=== PATIENT | female | born 1965 | race Caucasian/White ===

== ENCOUNTER → 2018-05-08 10:26 | Outpatient (CLI) | payer MEDICAID, SELFPAY ==
--- NOTE | 2018-05-08 10:28 | STEWCON_ITS ---
Version 2 Reason For Study: CAD/ASHD Stress Results Protocol: Oswald Protocol Maximum Predicted HR: 166 bpm Target HR: 141 bpm% Max imum Predicted HR: 90 % DurationHeart Rate Stage (mm:ss) (bpm) BPCom ment BASELINE 74 138/84 3 CC DEFINITY STAGE 1 3:00 12 3 152/90 STAGE 2 3:00 14 2 170/801CC DEFINITY STAGE 3 0:30 15 0 / RECOVERY 102 140/8 81 CC DEFINITY Stress Duration: 6:30 mm:ss Maximum Stress HR: 150 bpm Baseline Echocardiogram Findings Stress Echo Wall motion Data Resting WMIntermediate WMStress WM Resting Wall Motion Wall Motion Stress No regional wall motion No regional wall motion abnormalities noted. abnormalities noted. Ejection Fraction 55 %. Ejection Fraction 65 %. Stress Results Normal blood pressure response to exercise. Exercise was stopped due to achievement of target heart rate. Interpretation Summary Normal resting LV systolic function. Nonstenotic valves. With stress, the LV size decreased and all segments augmented normally. The LVEF increased from 55% to 65%. Negative for ischemia at 90% of MPHR and at 8.5 METS. Normal stress echo at a moderate workload. Ordering Physician: Jabari Brody Referring Physician: Jabari Brody Performed By: Leighton Bowser RCS
== END ==
PROVIDERS: PCP Internal Medicine; Visit Provider Nurse Practitioner Family
DX: I25.118 Atherosclerotic heart disease of native coronary artery with other forms of angina pectoris (principal)
CPT/HCPCS: 93017; 93350; Q9957; A4216; C8928

== ENCOUNTER → 2022-09-07 | Outpatient (CLI) | payer MEDICAID, SELFPAY ==
[2022-09-07 11:42] LABS: AST(SGOT) 11 U/L (15-37); Alanine Aminotransfer ALT/SGPT 24 U/L (13-56); Albumin, Serum 3.3 g/dL (3.2-5.0); Alkaline Phosphatase 66 U/L (45-117); Bilirubin, Direct 0.14 mg/dL (0.00-0.30); Cholesterol 159 mg/dL (200); Globulin 3.5 g/dL (2.2-4.2); High Density Lipoprotein 60 mg/dL; Protein, Total 6.8 g/dL (6.4-8.2); Triglycerides 93 mg/dL; Very Low Density Lipoprotein 19 mg/dL (5-40)
== END | disposition home or self-care (01) ==
LOC: LAB 10:42
PROVIDERS: Visit Provider Internal Medicine Cardiovascular Disease
DX: E78.00 Pure hypercholesterolemia, unspecified (principal); I10 Essential (primary) hypertension
CPT/HCPCS: 36415; 80061; 80076

== ENCOUNTER → 2022-09-27 | Outpatient (CLI) | payer MEDICAID, SELFPAY ==
--- NOTE | 2022-09-27 19:14 | STRESSREP ---
Stress Test Report Exercise myocardial perfusion stress test. 57-year-old lady with a history of chest pain. Stress protocol: Resting EKG demonstrates sinus bradycardia with a rate of 56 bpm resting blood pressure is 118/80 mmHg. The patient exercised according to the regular Oswald protocol for a total duration of 5 minutes and 46 seconds attaining a maximum heart rate of 127 bpm which was 78% of maximum predicted heart rate; the maximum workload was 7 metabolic equivalents. At rest there were no ST or T wave changes noted to suggest ischemia and at peak exercise upsloping ST changes only were noted which did not meet the criteria for ischemia. No clinical angina was noted the test was terminated due to the target heart rate being achieved/fatigue. The peak blood pressure was 158/70 mmHg. Rate-pressure product was 18,900. Myocardial perfusion protocol. 11.0 mCi of technetium 99m sestamibi was injected at rest. The patient exercised according to regular Oswald protocol for total duration of 5 minutes and 46 seconds and at peak exercise 32.8 mCi of technetium 99m sestamibi was injected stress images were obtained stress and rest images were reconstructed in comparing the short axis vertical long and horizontal long axis. Gated images were also obtained. Perfusion SPECT analysis: Review of the stress images demonstrate normal uptake of tracer noted in all areas of the myocardium. The resting images similarly demonstrate normal uptake of tracer noted in all areas of the myocardium. No areas of reversibility are noted to suggest ischemia no previous infarct was noted. Gated SPECT analysis: The gated ejection fraction is 82%. Conclusion: Normal exercise myocardial perfusion stress test at a moderate workload Preserved ejection fraction.
== END | disposition home or self-care (01) ==
LOC: CVS 06:09
PROVIDERS: Referring Provider Internal Medicine Cardiovascular Disease; Visit Provider Internal Medicine Cardiovascular Disease
DX: R00.1 Bradycardia, unspecified (principal); R53.83 Other fatigue; I10 Essential (primary) hypertension; Z95.5 Presence of coronary angioplasty implant and graft; R07.89 Other chest pain
CPT/HCPCS: 78452; 93017; A9500; A4216

== ENCOUNTER → 2023-02-17 | Outpatient (CLI) | payer MEDICAID, SELFPAY ==
--- NOTE | 2023-02-17 09:16 | US_ITS ---
EXAM: Diagnostic bilateral breast mammogram and diagnostic bilateral breast ultrasound REASON FOR EXAM: Female, 57 years old. Bilateral palpable lumps/tenderness for one week''s duration. PERTINENT HISTORY: Non-contributory. TECHNIQUE: Digital bilateral breast ha (3D mammographic acquisition) in the CC and MLO projections. 2-D mediolateral oblique (MLO) and craniocaudad (CC) views of both breasts were obtained. CAD: Full Field Digital Mammography with Computer Added Detection was performed. Real-time fairchild scale and color sonographic images were obtained in the clinical areas of concern within the right upper outer quadrant and right axilla and the left upper inner quadrant. COMPARISON: Mammogram from 04/05/2018, 02/25/2015. FINDINGS: Mammogram findings: Breast Composition: Portions of the breasts are heterogeneously dense, which may obscure small masses. There are no dominant masses or suspicious calcifications. No other significant abnormalities are identified. Ultrasound was obtained of the bilateral breasts for palpable findings. Ultrasound findings: The right upper outer breast and the right axilla in the clinical area of palpable findings was assessed with ultrasound. No suspicious masses or abnormal fluid collections. The left upper inner breast in the clinical area of palpable findings was assessed with ultrasound. No suspicious masses or abnormal fluid collections. IMPRESSION: Negative diagnostic mammogram. No suspicious masses or abnormal fluid collections on ultrasound in the clinical areas of concern. ASSESSMENT CATEGORY: BIRADS Category 1: Negative. A letter regarding these results will be sent to the patient by the facility within 30 days. Recommendation: Return to annual screening mammogram. If clinical concerns for enlarging mass or nipple discharge on physical exam, repeat diagnostic ultrasound and mammogram is recommended. Approximately 10% of breast cancers are not detected by mammography. A normal mammogram should not delay biopsy of a clinically suspicious abnormality. Electronically Signed: Atul Alejandro DO at 10:18 EDT , EXAM: Diagnostic bilateral breast mammogram and diagnostic bilateral breast ultrasound REASON FOR EXAM: Female, 57 years old. Bilateral palpable lumps/tenderness for one week''s duration. PERTINENT HISTORY: Non-contributory. TECHNIQUE: Digital bilateral breast ha (3D mammographic acquisition) in the CC and MLO projections. 2-D mediolateral oblique (MLO) and craniocaudad (CC) views of both breasts were obtained. CAD: Full Field Digital Mammography with Computer Added Detection was performed. Real-time fairchild scale and color sonographic images were obtained in the clinical areas of concern within the right upper outer quadrant and right axilla and the left upper inner quadrant. COMPARISON: Mammogram from 04/05/2018, 02/25/2015. FINDINGS: Mammogram findings: Breast Composition: Portions of the breasts are heterogeneously dense, which may obscure small masses. There are no dominant masses or suspicious calcifications. No other significant abnormalities are identified. Ultrasound was obtained of the bilateral breasts for palpable findings. Ultrasound findings: The right upper outer breast and the right axilla in the clinical area of palpable findings was assessed with ultrasound. No suspicious masses or abnormal fluid collections. The left upper inner breast in the clinical area of palpable findings was assessed with ultrasound. No suspicious masses or abnormal fluid collections. US/Breast Limited Unilateral
== END | disposition home or self-care (01) ==
LOC: OPBI 09:14
PROVIDERS: PCP Family Medicine; Referring Provider Family Medicine; Visit Provider Family Medicine
DX: N63.10 Unspecified lump in the right breast, unspecified quadrant (principal); N63.20 Unspecified lump in the left breast, unspecified quadrant
CPT/HCPCS: 77062; 76642; 77066; G0279

== ENCOUNTER → 2023-06-07 | Outpatient (CLI) | payer MEDICAID, SELFPAY ==
[2023-06-07 11:13] LABS: Absolute Lymphocyte Count 2.48 X10^3/uL (0.83-4.51); Absolute Neutrophil Count 5.8 X10^3/uL (2.0-7.7); Basophil# 0.07 X10^3/uL; Basophil% 0.7 % (0-1); Eosinophil# 0.32 X10^3/uL; Eosinophils% 3.2 % (0-5); Hemoglobin 12.9 g/dL (12.0-15.0); Lymphocyte # 2.48 X10^3/ul (0.83-4.51); Lymphocyte % 25.1 % (19-41); Mean Corp Hgb Conc 33.1 g/dL (32-36); Mean Corpuscular Hgb 32.1 pg (27.0-32.0); Mean Platelet Vol. 8.7 fl (6.2-12.0); Monocyte# 1.18 X10^3/uL; Monocyte% 11.9 % (0-10); NRBC Flagged by Analyzer 0 % (0-5); Neutrophil # 5.77 X10^3/uL (2.7-7.7); Neutrophil % 58.3 % (47-70); Platelet Count 258 K/mm3 (150-450); RBC Distribution Width CV 13.2 % (11.6-14.6); Red Blood Count 4.02 M/mm3 (4.2-5.4); White Blood Count 9.9 K/mm3 (4.4-11.0)
[2023-06-07 11:36] LABS: Internal QC Validated? YES +Cl - CLEAR BKGD; Pregnancy, Serum, hCG Quali. NEGATIVE Negative
[2023-06-07 11:38] LABS: Anion Gap 5 (5-15); BUN 19 mg/dL (7-18); BUN/Creat Ratio 20.6 RATIO (10-20); Calcium,Total 9.1 mg/dL (8.5-10.1); Chloride 108 mmol/L (98-107); Creatinine, Serum 0.92 mg/dL (0.55-1.02); EST Glomerular Filtration Rate 66 mL/min (>60); Est Glom Filt Rate - Afr Amer 80 mL/min (>60); Glucose 104 mg/dL (74-106); Sodium Level 140 mmol/L (136-145)
== END | disposition home or self-care (01) ==
LOC: LAB 11:00
PROVIDERS: PCP Family Medicine; Referring Provider Nurse Practitioner Gerontology; Visit Provider Nurse Practitioner Gerontology
DX: R07.89 Other chest pain (principal); Z95.5 Presence of coronary angioplasty implant and graft
CPT/HCPCS: 36415; 80048; 84703; 85025

== ENCOUNTER 2023-06-22 10:11 | Observation (INO) | payer MEDICAID, SELFPAY ==
[2023-06-21 08:48] VITALS: BMI 33.8
[2023-06-22] VITALS (10 sets, daily range): BP systolic 139–168; BP diastolic 70–97; PULSE 67–89; RESP 16–19; TEMP 36.7; O2SAT 96–100; BMI 34.7
--- NOTE | 2023-06-22 08:29 | CL.D_ITS ---
Patient Name: KOLBY LAMBERT Study Date: 06/22/2023 Performing: Norberto Werner MD Ht: 63 inches 160.02 cm : 1965 Wt: 191.01 lbs 86.64 kg Age: 57 Gender: female BSA: 1.9 PROCEDURE(S) PERFORMED DC01-([id number])LHC/COR/LV CLINICAL PROFILE AND INDICATIONS Indications: Worsening Angina Heart Failure: None Stress/Imaging Date: 09/27/22 CAD Presentations: Unstable angina. CONCLUSIONS Severe disease involving the left circumflex artery system and moderately severe disease involving the LAD. With preserved ejection fraction. RECOMMENDATIONS We will consider PCI of the left circumflex artery. And consider IFR of the LAD. DESCRIPTION OF PROCEDURE The patient arrived to the procedure lab. The risks and benefits of the procedure as well as a full description of our services here and current unavailability of surgical backup were fully explained to the patient and/or their significant other prior to the catheterization. The Timeout was completed, verifying the correct patient and procedure. The patient's procedural site was prepped and draped in the usual fashion. Local anesthetic was given subcutaneously to right radial region with Lidocaine 2%. Using a modified Seldinger technique, arterial access was obtained via the right radial artery, a 6Fr sheath was inserted. Left Coronary Artery selective angiography was performed in multiple views using a 5 Fr. 4.0 Fishtail catheter. Right Coronary Artery selective angiography was then performed in multiple views using a 5 Fr. 4.0 Fishtail catheter. Left Ventriculography was performed in HASSAN projection using a 5 Fr. Pigtail catheter. LV to AO pullback pressures were then recorded. CORONARY ANGIOGRAPHY DOMINANCE: Right Dominant LEFT HEART ASSESSMENT Left Ventricular Ejection Fraction: by LV Gram 65 % Normal LV wall motion Normal Left Ventricular systolic function LEFT MAIN: Mild calcification, Mild luminal irregularities LEFT ANTERIOR DESCENDING ARTERY: Medium size vessel with significant proximal calcification and eccentric 60 to 70% proximal stenosis with first diagonal with 80% ostial stenosis and mild diffuse distal disease. CIRCUMFLEX ARTERY: Nondominant vessel with high-grade 90% mid segment stenosis and 2 obtuse marginal branches with ostial 60 to 70% stenosis and mild distal disease noted in the AV groove branch. RIGHT CORONARY ARTERY: Moderate luminal irregularities up to 50% COMPLICATIONS PROCEDURE MEDICATIONS Versed 1 mg IV Fentanyl 50 mcg IV Versed 1 mg IV Versed 1 mg IV Oxygen: 2 L/min via nasal cannula Heparin given IA 06/22/2023 07:58:18 Verapamil 2.5mg, Ntg 100mcgs, 3000 units of Heparin given IA 06/22/2023 07:58:18 SUMMARY OF HEMODYNAMIC DATA Time AIR REST ECG 07:18:28 Art 147/67 (93) 07:53:56 AO 93/55 (71) SA 08:00:19 LV 90/5, 18 08:09:44 LV 92/10, 16 08:09:53 LV 98/11, 21 08:10:34 LV 96/7, 16 08:10:43 LVp 98/11, 20 08:10:53 AOp 119/67 (89) 08:11:00 Signed By Norberto Werner MD On 06/22/2023 08:28:49 Norberto Werner MD
--- NOTE | 2023-06-22 10:38 | CL.I_ITS ---
Patient Name: KOLBY LAMBERT Study Date: 06/22/2023 Performing: Asetr Nino MD Ht: 63 inches 160.02 cm : 1965 Wt: 191.01 lbs 86.64 kg Age: 57 Gender: female BSA: 1.9 PROCEDURE(S) PERFORMED IC10-(07156)FFR, CORONARY OR GRAFT, INITIAL VESSEL IC12-([id number])JOANN W/WO PTCA, SINGLE CORONARY ARTERY IC13-([id number])JOANN W/WO PTCA, EACH ADD'L ART, SAME MAJOR CLINICAL PROFILE AND CO-MORBIDITIES Indications: Worsening Angina Heart Failure: None Stress/Imaging Date: 09/27/22 CAD Presentations: Unstable angina. CONCLUSIONS iFR Prox LAD 0.92 optimized proximally using 3.25 mm balloon Successful PTCA/JOANN ostial/Prox OM1 (flow limiting linear dissection resulting from stent to LCX) using Yajaira x [place] 2.5x12 mm OM2 ostium dilated using 2.0 mm balloon RECOMMENDATIONS ASA Sj Augustine for at least 12 months DESCRIPTION OF PROCEDURE The patient arrived to the procedure lab. The risks and benefits of the procedure as well as a full description of our services here and current unavailability of surgical backup were fully explained to the patient and/or their significant other prior to the catheterization. The Timeout was completed, verifying the correct patient and procedure. The patient's procedural site was prepped and draped in the usual fashion. Local anesthetic was given subcutaneously to right radial region with Lidocaine 2% Using a modified Seldinger technique,arterial access was obtained via the right radial artery, a 6Fr sheath was inserted. Left Coronary Artery selective angiography was performed in multiple views using a 5 Fr. 4.0 [place] catheter. Right Coronary Artery selective angiography was then performed in multiple views using a 5 Fr. 4.0 [place] catheter. Left Ventriculography was performed in HASSAN projection using a 5 Fr. Pigtail catheter. LV to AO pullback pressures were then recorded.The images were reviewed and options discussed. A decision was then made to proceed with an Intervention, IVUS or other adjunct procedure. XB 3.0 Guide catheter was inserted and engaged into the LCA. The FFR/iFR wire was inserted. The FFR/iFR wire was then removed. Runthrough Guide wire was advanced to the Circumflex. The FFR/iFR wire was inserted. iFR measurements were performed. iFR Ratio: 0.92 iFR Ratio: 0.92 The FFR/iFR wire was then removed. Emerge 2.50x12 Balloon catheter was inserted. PTCA balloon inflated at 10 atms for 17 secs. Angiogram performed post balloon dilatation. [place] 3.0x30 Drug Eluting stent was inserted. Drug Eluting stent was removed intact, failed to cross lesion Runthrough Guide wire was inserted as a naty wire Emerge 2.50x12 Balloon catheter was inserted. PTCA balloon inflated at 6 atms for 32 secs. PTCA balloon inflated at 6 atms for 10 secs. Angiogram performed post balloon dilatation. [place] 3.0x30 Drug Eluting stent was inserted. Angiogram performed post stent deployment. Emerge 2.00x8 Balloon catheter was inserted. PTCA balloon inflated at 8 atms for 10 secs. Angiogram performed post balloon dilatation. Emerge 2.25x8 Balloon catheter was inserted. PTCA balloon inflated at 6 atms for 8 secs. PTCA balloon inflated at 6 atms for 5 secs. PTCA balloon inflated at 6 atms for 7 secs. PTCA balloon inflated at 6 atms for 8 secs. PTCA balloon inflated at 6 atms for 5 secs. PTCA balloon inflated at 6 atms for 5 secs. Angiogram performed post balloon dilatation. Emerge 2.50x12 Balloon catheter was inserted. PTCA balloon inflated at 6 atms for 6 secs. PTCA balloon inflated at 6 atms for 28 secs. PTCA balloon inflated at 6 atms for 36 secs. Angiogram performed post balloon dilatation. [place] Emerge 3.00x15 Balloon catheter was inserted. Angiogram performed post balloon dilatation. [place] 2.5x12 Drug Eluting stent was inserted. Angiogram performed post balloon dilatation. NC Emerge 3.00x15 Balloon catheter was inserted. Angiogram performed post balloon dilatation. NC Emerge 3.25x12 Balloon catheter was inserted. Angiogram performed post balloon dilatation. The arterial sheath was pulled and a TR Band was applied for hemostasis w/ 15ml air INTERVENTION INFORMATION LESION SITE: LAD (Proximal) lesion at bifurcation: Yes, lesion length: 28 mm PROCEDURE: iFR Lesion Devices: Cordis 6 Fr XB3.0 100cm Guide Catheter [place] (volcano) Coronary FFR Wire LESION SITE: Circumflex (Proximal) Lesion Complexity: High/C Pre Stenosis: 95 % Pre intervention HUNTER flow: 3 PROCEDURE: Drug Eluting Stent with pre and post dilatation Post Stenosis: 0 % Post intervention HUNTER flow: 3 Lesion Devices: Terumo .014 180cm Runthrough Extra Floppy straight Cordis 6 Fr XB3.0 100cm Guide Catheter Rj Sci EMERGE MR 2.50x12 BALLOON Medtronic 3.0 x 30 BRIANA FRONTIER JOANN Rj Sci EMERGE MR 2.00x08 BALLOON Rj Sci EMERGE MR 2.25x08 BALLOON Rj Sci EMERGE MR 2.50x12 BALLOON Rj Sci NC EMERGE MR 3.00x15 BALLOON Rj Sci NC EMERGE MR 3.25x12 BALLOON LESION SITE: 1st OM (Proximal) Lesion Complexity: High/C, lesion length: 10 mm Pre Stenosis: 99 % Pre intervention HUNTER flow: 1 PROCEDURE: Drug Eluting Stent with pre and post dilatation 10 % Post intervention HUNTER flow: 3 Lesion Devices: Medtronic 2.50 x 12 BRIANA FRONTIER JOANN COMPLICATIONS No Complications PROCEDURE MEDICATIONS Versed 1 mg IV Fentanyl 50 mcg IV Versed 1 mg IV Versed 1 mg IV Fentanyl 50 mcg IV Versed 1 mg IV Fentanyl 50 mcg IV Oxygen: 2 L/min via nasal cannula Brilinta 180 mg PO @ 06/22/2023 08:30:03 Heparin given IA 06/22/2023 07:58:18 Heparin 5000 unit(s) IV 06/22/2023 08:39:01 Heparin 3000 unit(s) IV 06/22/2023 08:48:27 Nitro 200 mcg IC 06/22/2023 09:24:39 Nitro 200 mcg IC 06/22/2023 09:24:39 Nitro 200 mcg IC 06/22/2023 09:32:36 Nitro 200 mcg IC 06/22/2023 09:40:26 Verapamil 2.5mg, Ntg 100mcgs, 3000 units of Heparin given IA 06/22/2023 07:58:18 IV Bolus: .9 NaCl 750 ml total 06/22/2023 10:08:30 SUMMARY OF HEMODYNAMIC DATA Time AIR REST ECG 07:18:28 Art 147/67 (93) 07:53:56 AO 93/55 (71) SA 08:00:19 LV 90/5, 18 08:09:44 LV 92/10, 16 08:09:53 LV 98/11, 21 08:10:34 LV 96/7, 16 08:10:43 LVp 98/11, 20 08:10:53 AOp 119/67 (89) 08:11:00 AO 191/108 (145) 10:00:10 AIR REST 10:36:14 Signed By Aster Nino MD On 06/22/2023 10:37:34 Aster Nino MD
[2023-06-22] MEDS: Acetaminophen 500 MG Tablet PO ×3 (12:23→21:11)
[2023-06-22] MEDS: 0.9% Normal Saline (1000mL) 1,000 ML 150 ML IV (12:32)
[2023-06-22 13:58] LABS: ACT Activated Clotting Time 239 sec (74-137)
[2023-06-22 14:07] LABS: ACT Activated Clotting Time 263 sec (74-137)
[2023-06-22] MEDS: Pravastatin 40 MG Tablet PO (21:10)
[2023-06-22] MEDS: dilTIAZem CD 240 MG Capsule PO (21:10)
[2023-06-22] MEDS: TICAGRELOR 90 MG TABLET PO (21:10)
[2023-06-23 03:10] VITALS: BP 104/57; BP 128/77; PULSE 70; PULSE 75; RESP 16; RESP 18; TEMP 36.6; TEMP 36.7; O2SAT 93; O2SAT 99
[2023-06-23] MEDS: Acetaminophen 500 MG Tablet PO (05:10)
[2023-06-23 07:43] VITALS: O2SAT 93
[2023-06-23 08:02] LABS: Hematocrit 34.6 % (37-47); Hemoglobin 11.6 g/dL (12.0-15.0); Mean Corp Hgb Conc 33.5 g/dL (32-36); Mean Corpuscular Hgb 31.7 pg (27.0-32.0); Mean Corpuscular Volume 94.5 fL (81-99); Mean Platelet Vol. 9.6 fl (6.2-12.0); Platelet Count 205 K/mm3 (150-450); RBC Distribution Width CV 12.9 % (11.6-14.6); RBC Distribution Width SD 44.6 fl (35.1-43.9); Red Blood Count 3.66 M/mm3 (4.2-5.4); White Blood Count 9.1 K/mm3 (4.4-11.0)
[2023-06-23 08:09] VITALS: BP 180/92; PULSE 59; RESP 16; TEMP 36.5; O2SAT 99
[2023-06-23] MEDS: Aspirin 81 MG TAB.CHEW PO (08:12)
[2023-06-23] MEDS: Isosorbide Mononitrate 60 MG Tablet PO (08:12)
[2023-06-23] MEDS: Losartan Potassium 100 MG Tablet PO (08:13)
[2023-06-23] MEDS: TICAGRELOR 90 MG TABLET PO (08:13)
[2023-06-23] MEDS: hydroCHLOROthiazide 12.5mg 12.5 MG PO (08:13)
[2023-06-23] MEDS: Pantoprazole Sodium 20 MG Tablet PO (08:14)
[2023-06-23 08:15] VITALS: BP 180/92; PULSE 59; RESP 16; TEMP 36.5; O2SAT 99
--- NOTE | 2023-06-23 08:16 | PCM.PN.CARD ---
Subjective Subjective Patient seen and evaluated. Appears to be doing well. No complaints. Underwent PCI of the left circumflex artery yesterday. Objective Data Vital Signs: Vital Signs Temp Pulse Resp BP Pulse Ox O2 Del Method 97.7 F L 59 L 16 180/92 H 99 Room Air 06/23/23 08:09 06/23/23 08:09 06/23/23 08:09 06/23/23 08:09 06/23/23 08:09 06/23/23 08:09 Oxygen Delivery Method Room Air Weight: 195 lb 12.328 oz Body Mass Index (BMI) 34.7 Intake & Output: Intake and Output for Last 24 Hours 06/21/23 06/22/23 06/23/23 23:59 23:59 23:59 Intake Total 1939 120 / 120 Balance 1939 120 / 120 Lab / Micro Data 06/23/23 06:28 06/23/23 06:28 Labs: Laboratory Results - last 24 hr 06/22/23 08:50: Activated Clotting Time 239 H 06/22/23 08:50: Activated Clotting Time Cancelled 06/22/23 10:10: Activated Clotting Time 263 H 06/23/23 06:28: WBC 9.1, RBC 3.66 L, Hgb 11.6 L, Hct 34.6 L, MCV 94.5, MCH 31.7, MCHC 33.5, RDW Std Deviation 44.6 H, RDW Coeff of Gabriel 12.9, Plt Count 205, MPV 9.6 Cardiology Labs/Tests 06/23/23 06:28: WBC 9.1, RBC 3.66 L, Hgb 11.6 L, Hct 34.6 L, MCV 94.5, MCH 31.7, MCHC 33.5, Plt Count 205, MPV 9.6 Rhythm: EKG: ECHO: Stress Test: Cardiac Cath: PCI: CT Surgery: Holter monitor: EPS: PPM: CXR: Chest CT Scan: Physical Exam Const alert, oriented x3 and no apparent distress General Appearance: cooperative HEENT hearing grossly normal bilaterally Head and Scalp: atraumatic Eyes EOMs intact bilaterally Neck General: normal visual inspection Chest inspection of chest normal and palpation of chest normal Resp normal respiratory effort Auscultation: clear to auscultation bilaterally Cardio regular rate, regular rhythm, S1 normal heart sound and S2 normal heart sound Jugular Venous Distention: JVD GI normal to inspection, nondistended, normoactive bowel sounds Extremity normal capillary refill and no pedal edema Peripheral Pulses: Yes pulses 2+ throughout and femoral pulses present Skin no rashes or lesions noted Neuro oriented x3 and CN's II-XII intact bilaterally Psych Appearance: grossly normal and appropriate Assessment & Plan Assessment/Plan (1) Essential (primary) hypertension: PLAN: Patient has a history of hypertension. My recommendation will be to continue the current medical therapy with the addition of hydrochlorothiazide and continuing the isosorbide. (2) History of coronary artery stent placement: PLAN: Patient is status post angioplasty and stenting of the left circumflex artery. She will continue to follow-up with aspirin and Brilinta for at least a month and then can switch to clopidogrel for a year. Smoking cessation has also been emphasized. (3) Hyperlipidemia: QUALIFIERS: Hyperlipidemia type: pure hypercholesterolemia Qualified Code(s): E78.00 - Pure hypercholesterolemia, unspecified PLAN: We will continue aggressive risk factor modification.
[2023-06-23 08:23] VITALS: BP 180/92; PULSE 59; RESP 16; TEMP 36.5; O2SAT 99
--- NOTE | 2023-06-23 08:23 | PCM.DC ---
Discharge Instructions Diet Discharge Diet: No restrictions Activity Discharge Activity: Return to Normal Activity Additional Activity Instructions:: You must have someone drive you home. Do not drive until instructed by your doctor. You must have someone stay with you all night after your test. Rest in bed or on the couch until the next morning. Limit the number of times you go up and down stairs the day of your test. Apply pressure to the puncture site if you sneeze or cough. Dressing / Incision Call your doctor if your incision/area has: Increased Pain/ Swelling, Increased Redness, Foul Smelling Discharge and Swelling at the incision site Call your doctor if you observe: Fever of 101 or Higher Additional Dressing/Incision Instructions:: Keep the dressing (bandage) on until the next morning. You may then shower, but do not take a tub bath for 5 days after your test. It is normal to have some tenderness and discomfort at the puncture site. Sometimes bruising also occurs. However, if pain, numbness, or coldness occurs below the puncture site (in your leg, toes, arms or fingers) call your doctor at once. You may have a small, marble sized knot at the puncture site. This is normal. Do not rub it. It will go away in 4-6 weeks. Bleeding can occur from the area where the puncture was done. Blood may spurt or drip from the site. If blood spurts, apply pressure right away to stop bleeding and call 911. Although rare, bleeding into the tissue (hematoma) can also occur. If this happens, a large, firm area goose egg under the skin will appear. If any of these occur, lie down as flat as you can and have someone apply firm pressure to the cath site with a gauze pad or a clean washcloth for 10-15 minutes. Call 911 or go to the Emergency Department. Follow Up Care Test Results: Test results from this visit will be discussed in further detail at your follow-up appointment, if applicable. Discharge Plan Admission Admit Date/Time: 06/22/23 10:11 Attending Provider: Norberto Werner Primary Care Provider: Olesya Gillespie Discharge Orders/Prescriptions Prescriptions: New hydrochlorothiazide 12.5 mg Capsule 25 mg PO DAILY Qty: 90 1RF Brilinta 90 mg Tablet 90 mg PO BID Qty: 180 2RF Continued acetaminophen [Mapap Extra Strength] 500 mg tablet 500 mg PO Q6H nitroglycerin 0.4 mg tablet, sublingual 0.4 mg SUBLINGUAL Q5-15M PRN (Reason: chest pain) Qty: 25 10RF Rx Instructions: until response; do not exceed 3 doses per event omeprazole 20 mg capsule,delayed release(DR/EC) 20 mg PO DAILY Qty: 30 6RF isosorbide mononitrate 60 mg tablet extended release 24 hr 60 mg PO BID Qty: 180 3RF aspirin 81 MG tablet,chewable 81 mg PO DAILY pravastatin 40 mg tablet 40 mg PO QHS Qty: 90 3RF diltiazem HCl [Cartia XT] 240 mg capsule,extended release 24hr 240 mg PO DAILY Qty: 90 3RF losartan 100 mg tablet 100 mg PO DAILY Qty: 90 3RF metoprolol succinate 50 mg tablet extended release 24 hr 50 mg PO DAILY Qty: 90 3RF Discontinued hydrochlorothiazide 12.5 mg tablet 12.5 mg PO DAILY Qty: 90 3RF Referrals / Follow Up: Olesya Gillespie DO [Primary Care Provider] - Disposition Disposition (needs filled in before D/C Order can be placed): Home, Self Care
[2023-06-23 08:32] LABS: AST(SGOT) 53 U/L (15-37); Alanine Aminotransfer ALT/SGPT 25 U/L (13-56); Albumin, Serum 3.1 g/dL (3.2-5.0); Alkaline Phosphatase 63 U/L (45-117); Anion Gap 4 (5-15); BUN 11 mg/dL (7-18); BUN/Creat Ratio 16.2 RATIO (10-20); Calcium,Total 8.8 mg/dL (8.5-10.1); Chloride 110 mmol/L (98-107); Creatinine, Serum 0.68 mg/dL (0.55-1.02); EST Glomerular Filtration Rate 94 mL/min (>60); Est Glom Filt Rate - Afr Amer 113 mL/min (>60); Estimated Creatinine Clearance 73.69 ml/min; Globulin 3.2 g/dL (2.2-4.2); Glucose 109 mg/dL (74-106); Potassium 3.4 mmol/L (3.5-5.1); Protein, Total 6.3 g/dL (6.4-8.2); Sodium Level 139 mmol/L (136-145)
--- NOTE | 2023-06-23 08:48 | CRPHASE1_ITS ---
Patient Communication Patient Information Former Patient:: Phase I PHII Cardiac Rehab Discussed with Patient:: Yes Guide to Cardiac Rehab Given to Patient:: Yes Cardiac Rehab Facility Choice List Given to Patient:: Yes Communication to Cardiac Rehab Choice Program [facility] PHII:: Communication Given to CR Piece Work Inspector:: Aster Nino Sessions:: 36 sessions - 3 days/wk, 12 weeks Cardiac Rehabilitation Info Program Information Cardiac Rehabilitation Program Information: Cardiac Rehab The cardiac rehab team at [facility] consists of highly skilled exercise physiologists, nurses, respiratory therapists and physicians working together with you. Our purpose is to help you have a full recovery and achieve the goals you set for yourself. Over the years many of our patients have returned to activities they assumed they would never do again! We can help restore your confidence and motivation to make lifestyle changes that can have a significant impact on your health and quality of life! We can help answer questions and concerns you may have about exercise, lifestyle, medications, diet, stress and anxiety which are common following a hospitalization. WE monitor ECG and vital signs during exercise and discuss your progress with you and report to your physician(s). Cardiac Rehab is proven to help reduce readmissions, improve functional capacity and lower recurrence of problems with your heart. Our Cardiac Rehab program is Certified by the [place] [employer] Pulmonary [employer] (AACVPR) and Accredited by the [place] [employer] through our [facility]. You can contact us at . We invite you to call us with your questions or to get started in our program. If you have other questions or concerns be sure to ask your physician/provider during your follow-up visit. WE look forward to seeing you!
--- NOTE | 2023-06-23 08:49 | CRPH1.INST_ITS ---
General Education Discussed with Patient CAD and cardiac anatomy and function:: Patient communicates acknowledgment Explanation of diagnoses and procedures:: Patient communicates acknowledgment Sign/Symptoms of [place]:: Patient communicates acknowledgment Antiplatelet therapy: Patient communicates acknowledgment Proper use of NTG-SL: Patient communicates acknowledgment Emergency procedures and activation of EMS: Patient communicates acknowledgment Compliance of all prescribed medications: Patient communicates acknowledgment Smoking Risk Factors Patient Nicotine/Smoking Risk Factors Are:: Cigarettes Recommendations Recommendations Include:: Smoking cessation strategies/Smoking packet, Second- hand smoke recommendation and Participation in a smoking cessation program Response Code Nicotine/Smoking Response Code:: Patient communicates acknowledgment Dyslipidemia Risk Factors Patient Dyslipidemia Risk Factors Are:: Total Cholesterol and Triglycerides Recommendations Recommendations Include:: Lipid profile not available, Reviewed NCEP/ATP guidelines and Therapeutic Lifestyle Change dietary guidelines Response Code Dyslipidemia Response Code:: Patient communicates acknowledgment Overweight/Obesity Risk Factors Patient Overweight/Obesity Risk Factors Are:: Obesity - > or = 30 Recommendations Recommendations Include:: Weight loss of 5-10%, Reduced calorie diet and Exercise 5-7 times/week Response Code Overweight/Obesity:: Patient communicates acknowledgment Hypertension Recommendations Recommendations Include:: Maintain BP <130/85, Decrease/maintain normal body weight and Moderation of ETOH Response Code Hypertension:: Patient communicates acknowledgment Heart Disease Risk Factors Patient Heart Disease Risk Factors Are:: Family history of heart disease < 65 years old and Previous cardiac event Recommendations Recommendations Include:: Educated family members of their risk and Educated family members of importance of prevention of heart disease Response Code Heart Disease Response Code:: Patient communicates acknowledgment Diabetes Risk Factors Patient Diabetes Risk Factors Are:: No documented hx of diabetes and Elevated blood sugars Recommendations Recommendations Include:: Maintain fasting blood sugars 70-110 md/dL, Monitor blood sugar as prescribed, Diabetic dietary guidelines and Decrease/maintain body weight Response Code Diabetes:: Patient communicates acknowledgment Metabolic Syndrome Risk Factors Patient Metabolic Syndrome Risk Factors Are [3 of 5]:: Waist circumference > 35 [female] or 40 [male], High triglyceride >150, Hypertension and Low HDL <40 [male] or < 50 [female] Recommendations Recommendations Include:: Reinforce compliance to risk factor modifications and Encouraged follow-up with Primary Care Physician Response Code Metabolic Syndrome Response Code:: Patient communicates acknowledgment Sedentary Risk Factors Patient Sedentary Risk Factors Are:: Lack of regular exercise Recommendations Recommendations Include:: Aerobic exercise 5-7 times/week for 20-30 minutes continuously, Benefits of regular exercise, Discussed home walking program and Monitored Outpatient Cardiac Rehab Response Code Sedentary Response Code:: Patient communicates acknowledgment Stress Recommendations Recommendations Include:: Identification of stressors, and assessment of coping skills and Stress management techniques Response Code Stress Response Code:: Patient communicates acknowledgment
--- NOTE | 2023-06-23 09:18 | CASEMGMT ---
DOMINGO TURCIOS NOTE: Pt being discharged. Brilinta has been e-scribed to [facility]. DOMINGO TURCIOS placed call to [facility]. Call not going through after multiple attempts. With pt's insurance, there should be no co-pay for medications. DOMINGO TURCIOS to room. Pt resting in bed. Introduced self and role. Made aware of Brilinta and importance of taking. Pt provided w/this DOMINGO TURCIOS contact info to call if there are any issues w/getting medications @ [facility] today. She voices understanding. She denies having any other discharge planning needs or concerns. Becky MARVINN RN CM
--- NOTE | 2023-06-23 10:00 | EKG12_ITS ---
Test Reason : AM EKG Blood Pressure : / mmHG Vent. Rate : 061 BPM Atrial Rate : 061 BPM P-R Int : 132 ms QRS Dur : 084 ms QT Int : 444 ms P-R-T Axes : 053 030 062 degrees QTc Int : 446 ms Normal sinus rhythm Normal ECG Confirmed by LIU ALICEA, NORBERTO ([id number]), continuity editor SHERI HEBERT ([id number]) on 06/28/2023 10:05:49 AM Referred By: Norberto Werner Confirmed By:NORBERTO WERNER MD
[2023-06-23] MEDS: dilTIAZem CD 240 MG Capsule PO (10:22)
== END 2023-06-23 08:23 | disposition home or self-care (01) ==
LOC: PCU 10:31
PROVIDERS: Internal Medicine Cardiovascular Disease; Admitting Provider Internal Medicine Cardiovascular Disease; PCP Family Medicine; Referring Provider Internal Medicine Cardiovascular Disease; Visit Provider Internal Medicine Cardiovascular Disease
DX: I25.110 Atherosclerotic heart disease of native coronary artery with unstable angina pectoris (principal); I10 Essential (primary) hypertension; Z95.5 Presence of coronary angioplasty implant and graft; E78.5 Hyperlipidemia, unspecified; Z79.82 Long term (current) use of aspirin; Z79.899 Other long term (current) drug therapy; F17.200 Nicotine dependence, unspecified, uncomplicated
CPT/HCPCS: C1725 ×5; C1769 ×4; C1874 ×2; C1887; C1894; J7040; 36415; 80053; 85027; 85347; 92928; 92929; 93005; 93458; 93571; 96360; 96361; 99152; 99153; 99221; 99406; J7030; Q9967; C9600; C9601; G0378; J1327; J2405

== ENCOUNTER → 2023-07-02 | Outpatient (CLI) | payer MEDICAID, SELFPAY ==
[2023-07-02 10:31] LABS: Hematocrit 36.4 % (37-47); Hemoglobin 12.1 g/dL (12.0-15.0); Mean Corp Hgb Conc 33.2 g/dL (32-36); Mean Corpuscular Hgb 31.8 pg (27.0-32.0); Mean Corpuscular Volume 95.5 fL (81-99); Mean Platelet Vol. 9.1 fl (6.2-12.0); Platelet Count 327 K/mm3 (150-450); RBC Distribution Width CV 12.2 % (11.6-14.6); RBC Distribution Width SD 42.9 fl (35.1-43.9); Red Blood Count 3.81 M/mm3 (4.2-5.4); White Blood Count 9.2 K/mm3 (4.4-11.0)
[2023-07-02 10:54] LABS: BNP,B-Type NATRIURETIC PEPTIDE 48.8 pg/mL (0-100)
[2023-07-02 11:07] LABS: ALB/GLOB Ratio 0.9 RATIO (0.9-2.4); AST(SGOT) 13 U/L (15-37); Alanine Aminotransfer ALT/SGPT 23 U/L (13-56); Albumin, Serum 3.3 g/dL (3.2-5.0); Alkaline Phosphatase 72 U/L (45-117); Anion Gap 6 (5-15); BUN 19 mg/dL (7-18); BUN/Creat Ratio 18.6 RATIO (10-20); Calcium,Total 9.1 mg/dL (8.5-10.1); Chloride 103 mmol/L (98-107); Creatinine, Serum 1.02 mg/dL (0.55-1.02); EST Glomerular Filtration Rate 59 mL/min (>60); Est Glom Filt Rate - Afr Amer 71 mL/min (>60); Globulin 3.6 g/dL (2.2-4.2); Glucose 103 mg/dL (74-106); Potassium 3.7 mmol/L (3.5-5.1); Protein, Total 6.9 g/dL (6.4-8.2); Sodium Level 137 mmol/L (136-145); Thyroid Stim Hormone (TSH) 1.86 uIU/mL (0.358-3.74)
== END | disposition home or self-care (01) ==
PROVIDERS: PCP Family Medicine; Referring Provider Nurse Practitioner Gerontology; Visit Provider Nurse Practitioner Gerontology
DX: R53.83 Other fatigue (principal); I25.118 Atherosclerotic heart disease of native coronary artery with other forms of angina pectoris; Z95.5 Presence of coronary angioplasty implant and graft; R06.02 Shortness of breath; D64.9 Anemia, unspecified
CPT/HCPCS: 36415; 80053; 83880; 84443; 85027

== ENCOUNTER 2023-09-12 09:00 | Outpatient (CLI) | payer MEDICAID, SELFPAY ==
[2023-09-12 08:56] VITALS: BMI 34.7
--- NOTE | 2023-09-12 11:32 | CL.D_ITS ---
Patient Name: KOLBY LAMBERT Study Date: 09/12/2023 Performing: Norberto Werner MD Ht: 63 inches 160.02 cm : 1965 Wt: 195.99 lbs 88.9 kg Age: 57 Gender: female BSA: 1.92 PROCEDURE(S) PERFORMED [id number])[facility] CLINICAL PROFILE AND INDICATIONS Indications: Worsening Angina Heart Failure: None Stress/Imaging Stress/Image Study Performed: No CAD Presentations: Unstable angina. CONCLUSIONS Residual coronary artery disease noted in the proximal to mid LAD and moderate disease noted in the right coronary artery. Moderate disease noted in the second obtuse marginal branch post stent. RECOMMENDATIONS Will recommend PCI to the proximal LAD. DESCRIPTION OF PROCEDURE The patient arrived to the procedure lab. The risks and benefits of the procedure as well as a full description of our services here and current unavailability of surgical backup were fully explained to the patient and/or their significant other prior to the catheterization. The Timeout was completed, verifying the correct patient and procedure. The patient's procedural site was prepped and draped in the usual fashion. Local anesthetic was given subcutaneously to right radial region with Lidocaine 2%. Using a modified Seldinger technique, arterial access was obtained via the right radial artery, a 6Fr sheath was inserted. Left Coronary Artery selective angiography was performed in multiple views using a 5 Fr. 4.0 Cleveland catheter. Right Coronary Artery selective angiography was then performed in multiple views using a 5 Fr. 4.0 [place] catheter. Left Ventriculography was performed in HASSAN projection using a 5 Fr. Pigtail catheter. LV to AO pullback pressures were then recorded. CORONARY ANGIOGRAPHY DOMINANCE: Right Dominant LEFT HEART ASSESSMENT Left Ventricular Ejection Fraction: by LV Gram 60 % Normal Left Ventricular systolic function LEFT MAIN: Angiographically normal LEFT ANTERIOR DESCENDING ARTERY: Calcified in the proximal to mid segment with an eccentric 70 to 80% stenosis in the proximal segment and a first diagonal vessel with an ostial 80% stenosis CIRCUMFLEX ARTERY: This vessel was previously stented in the midsegment as well as the proximal to mid second obtuse marginal vessel. The second OM branch post stent has a 60 to 70% stenosis RIGHT CORONARY ARTERY: Dominant right coronary artery with mid 50% stenosis and mid to distal 50 to 60% stenosis. This appears to be unchanged from before COMPLICATIONS PROCEDURE MEDICATIONS Versed 1 mg IV Fentanyl 50 mcg IV Versed 1 mg IV Versed 1 mg IV Oxygen: 2 L/min via nasal cannula Heparin given IA 09/12/2023 10:53:18 Heparin 6000 unit(s) IV 09/12/2023 11:25:43 Plavix 300 mg PO 09/12/2023 11:13:54 Verapamil 2.5mg, Ntg 100mcgs, 3000 units of Heparin given IA 09/12/2023 10:53:18 SUMMARY OF HEMODYNAMIC DATA Time AIR REST ECG 09:07:41 AO 125/72 (95) SA 10:55:48 LV 138/2, 14 11:02:05 LV 139/4, 13 11:02:11 LV 127/1, 13 11:02:40 LVp 173/16, 42 11:02:45 LV 138/4, 18 11:02:46 AOp 143/67 (100) 11:02:50 LVp 135/3, 12 11:02:50 Signed By Norberto Werner MD On 09/12/2023 11:31:58 Norberto Werner MD
[2023-09-12 15:10] LABS: ACT Activated Clotting Time 309 sec (74-137)
--- OUTSIDE RECORDS SUMMARY | 2023-10-25 23:03 | XMS RPT_ITS | CCD ---
Author Name Unknown Address [address] [place] [address] Organization [facility] Care Team Providers Care Maintenance Team Member Name Role Phone Claudia Jett Unavailable Unavailable Flor Rogers Unavailable Unavailable Sg Benzsa Unavailable Unavailable Rakel Kaur MD Primary Care Provider Alphonso, Fertile S Unavailable Lorenzo Emmanuel MD Unavailable [phone] Yi Chacon Unavailable Unavailable Terri Kaur MD Primary Care Provider Alphonso, Norberto S Unavailable Lorenzo Emmanuel MD Unavailable Josseline Gillespie DO Primary Care Provider YI CHACON Attending Unavailable ELLIE, MOJGAN MCWILLIAMS Referring Unavaparker ROGERS, MOJGAN MCWILLIAMS Attending Unavai lable UNKNOWN, PCP Referring Unavailable ELLIE, MOJGAN MCWILLIAMS Attending Linad Omalley, Dr. Neil Referring Unavailable Flores, Dr. Irwin Attending Unavailable ELLIE, MEDICAL GENETICIST FLOR MCWILLIAMS Referring Unavai juliette Werner MD [...] Reductase Inhibitors (Statins) drug allergy 12-26-2013 myalgia [employer] Work Phone: (2 sources) pravastatin Drug Allergy 04-26-2012 Myalgias [employer] Work Phone: (8 sources) predniSONE; Translations: [PREDNISONE] Drug Allergy 03-21-2023 Other: See Comments [facility] Work Phone: Medications Current Medications Medication Drug Class(es) Dates Sig (Normalized) Sig (Original) acetaminophen 500 mg oral tablet (18 sources) Start: 05-26-2018 Medication acetaminophen 500 mg tablet Mapap Extra Strength 500 mg 05/26/2018 Active (Outside) Completed/Discontinued Medications Medication Drug Class(es) Dates Sig (Normalized) Sig (Original) [id number] 200 actuat albuterol 0.09 mg/actuat metered dose [...] Facility 07-15-2023 10:41-0500 Body height 161.3 cm Metavana DO Work Phone: [facility] 07-15-2023 10:41-0500 Body temperature 97.9 [degF] Metavana DO Work Phone: [facility] 07-15-2023 10:41-0500 Body weight 87.54 kg Josseline Sheets DO Work Phone: [facility] 07-15-2023 10:41-0500 Diastolic blood pressure 72 mm[Hg] Josseline Sheets DO Work Phone: [facility] 07-15-2023 10:41-0500 Heart rate 80 /min Josseline Sheets DO Work Phone: [facility] 07-15-2023 10:41-0500 Respiratory rate 16 /min Josseline Sheets DO Work Phone: [facility] 07-15-2023 10:41-0500 SaO2% (BldA) [Mass fraction] 98 % Josseline Sheets DO Work Phone: [facility] 07-15-2023 10:41-0500 Systolic blood pressure 116 mm[Hg] Josseline Sheets DO Work Phone: [facility] 05-10-2023 11:27-0400 Body height 161.3 cm Lucia Mariano SENIOR SPEECH PATHOLOGIST.MEDICAL GENETICIST Work Phone: [facility] 05-10-2023 11:27-0400 Body temperature 98.1 [degF] Lucia Mariano SENIOR SPEECH PATHOLOGIST.MEDICAL GENETICIST Work Phone: [facility] 05-10-2023 11:27-0400 Body weight 85.73 kg Lucia Mariano SENIOR SPEECH PATHOLOGIST.MEDICAL GENETICIST Work Phone: [facility] 05-10-2023 11:27-0400 Diastolic blood pressure 76 mm[Hg] Lucia Mariano SENIOR SPEECH PATHOLOGIST.MEDICAL GENETICIST Work Phone: [facility] 05-10-2023 11:27-0400 Heart rate 92 /min Lucia Trikurt SENIOR SPEECH PATHOLOGIST.MEDICAL GENETICIST Work Phone: [facility] 05-10-2023 11:27-0400 SaO2% (BldA) [Mass fraction] 95 % Lucia Trikurt SENIOR SPEECH PATHOLOGIST.MEDICAL GENETICIST Work Phone: [facility] 05-10-2023 11:27-0400 Systolic blood pressure 124 mm[Hg] Lucia Mariano APRN.CNP Work Phone: [facility] 04-29-2023 10:11-0400 Body height 161.3 cm Lorenzo Emmanuel MD Work Phone: [facility] 04-29-2023 10:11-0400 Body temperature 97.59 [degF] Lorenzo Emmanuel MD Work Phone: [facility] 04-29-2023 10:11-0400 Body weight 87.36 kg Lorenzo Emmanuel MD Work Phone: [facility] 04-29-2023 10:11-0400 Diastolic blood pressure 82 mm[Hg] Lorenzo Emmanuel MD Work Phone: [facility] 04-29-2023 10:11-0400 Heart rate 71 /min Lorenzo Emmanuel MD Work Phone: [facility] 04-29-2023 10:11-0400 SaO2% (BldA) [Mass fraction] 97 % Lorenzo Emmanuel MD Work Phone: [facility] 04-29-2023 10:11-0400 Systolic blood pressure 130 mm[Hg] Lorenzo Emmanuel MD Work Phone: [facility] 02-09-2023 11:08-0400 Body height 160 cm Josseline Sheets DO Work Phone: [facility] 02-09-2023 11:08-0400 Body temperature 98.29 [degF] Josseline Sheets DO Work Phone: [facility] 02-09-2023 11:08-0400 Body weight 87.36 kg Josseline Sheets DO Work Phone: [facility] 02-09-2023 11:08-0400 Diastolic blood pressure 76 mm[Hg] Josseline Sheets DO Work Phone: [facility] 02-09-2023 11:08-0400 Heart rate 66 /min Josseline Sheets DO Work Phone: [facility] 02-09-2023 11:08-0400 Respiratory rate 16 /min Josseline Sheets DO Work Phone: [facility] 02-09-2023 11:08-0400 SaO2% (BldA) [Mass fraction] 98 % Josseline Sheets DO Work Phone: [facility] 02-09-2023 11:08-0400 Systolic blood pressure 126 mm[Hg] Josseline Sheets DO Work Phone: [facility] 05-07-2022 09:01-0400 Diastolic blood pressure 87 mm[Hg] [...] 07-15-2023 End: 07-15-2023 ambulatory JOSSELINE C SHEETS Facility:[facility] Start: 07-15-2023 End: 07-15-2023 Patient encounter procedure Josseline C Sheets DO Work Phone: [facility] Procedures Date Procedure Procedure Detail Performing Clinician [...] MD Work Phone: Start: 06-08-2017 End: 06-08-2017 MILITARY POLICE OFFICER Jabari Knight Mary Grace PYROTECHNIC ASSEMBLER Work Phone: Start: 06-08-2017 End: 06-08-2017 Follow Up Appt 6 months Jabari Antonia Mary Grace PYROTECHNIC ASSEMBLER Work Phone: Start: 05-25-2017 End: 06-08-2017 *Hepatic [...] PA-C Work Phone: Start: 11-13-2013 End: 11-13-2013 [employer]ARY POLICE OFFICER Jennifer Leary PA-C Work Phone: Start: 11-13-2013 [...] Detail Author Start: 03-27-2028 Urine microalbumin profile [facility] Start: 10-28-2025 Lipid 1996 panel - S arminda or Plasma Lipid Screening [facility] Start: 10-28-2025 LIPID SCREEN LIPID SCREEN [facility] Start: 10-11-2024 Colonoscopy COLONOSCOPY [facility] Start: 10-11-2024 COLORECTAL CANCER SCREENING COLORECTAL CANCER SCREENING [facility] Start: 07-15-2024 Annual PCP Team Machine I Cutter gracy Disease Visit Annual PCP Team Chronic Disease Visit [facility] Start: 02-26-2024 Influenza vaccination Influenza Vacc ine (#1) [facility] Immunizations Immunization Date Immunization Notes Care Provider Fa cility 02-09-2023 zoster RZV vaccine, PF, (SHINGRIX) 50 mcg/0.5 mL injection Josseline Sheets DO Work Phone: [facility] Payers Date Payer Category Payer Medicaid [id number] 2015 Medicaid [id number] 1965 Unknown [id number] [id number] 1965 Unknown [id number] [id number] 1965 Unknown [id number] [id number]. [id number] 1965 Unknown [id number] [id number]. [id number] Unknown [id number] Social History Date Type Detail Facility Start: 12-11-2021 Dept. of D ermatology Start: 1965 End: 1965 Sex Assigned At Female [facility] gy Start: 12-02-2016 End: 07-15-2023 Tobacco smoking status NHIS Smokes tobacco daily [facility] Work Phone: History of tobacco use Cigarette Smoker [facility] Work Phone: Start: 12-02-2016 End: 02-09-2023 Cigarettes smoked current (pack per day) - Reported 0.5 [facility] Work Phone: Start: 12-02-2016 End: 07-15-2023 Tobacco use and exposure Smokeless tobacco non-user [facility] Work Phone: Start: 06-25-2020 End: 07-15-2023 Alcohol intake Current drinker of alcohol (finding) [facility] Start: 06-25-2020 History SDOH Alcohol Comment weekly [facility] Start: 12-02-2016 End: 04-29-2023 Tobacco Comment used to smoke 1 pack [facility] Start: 1965 Sex Assigned At Not on file [facility] Start: 02-09-2023 End: 07-15-2023 Tobacco use panel [facility] Work Phone: Adult Depression Screening Assessment 0 [facility] Work Phone: Goals Date Patient Goal Desired Activity /State Clinical Notes 10-03-2014 to 07-15-2023 Josseline Gillespie DO - 07/15/2023 11:02 AM ESTTelephone Encounter - Enedina Avalos MA - 06/28/2023 8:23 AM EDTTelephone Encounter - Aretha Alicea - 06/02/2023 8:54 AM EDT Note Date & Type Note Facility 07-15-2023 Note HNO ID: [id number] Author: Josseline Gillespie DO Service: ? Author Type: Physician Type: Progress Notes Filed: 07/30/2023 7:42 AM Note Text: Subjective HPI Pt is here for hospital f/u She was in [facility] for coronary artery disease She is under the care of Dr. 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 [facility] 11-17-2023 History of Presen t illness Narrative Subjective HPI Pt is here for hospital f/u She was in [facility] for coronary artery disease She is under the care of Dr. 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 ASSESSMENT/PLAN: 1. Coronary artery disease of [place] artery of [place] heart with stable angina pectoris (HCC) - ICD9: 414.01, 413.9, ICD10: I25.118 Pt is under the care of Dr. Werner, inspector cold working 2. SOB (shortness of breath) - ICD9: 786.05, ICD10: R06.02 (primary diagnosis) Possibly due to [place], pt will discuss with inspector cold working 3. History of heart artery stent - ICD9: V45.82, ICD10: Z95.5 Started on Brillinta 4. Neoplasm of uncertain behavior of skin of forearm - ICD9: 238.2, ICD10: D48.5 - CONSULT TO DERMATOLOGY Josseline Gillespie DO documented in this encounter [facility] 06-28-2023 Miscellaneous Notes pharm requesting refills: Last [...] Enedina Avalos MA documented in this encounter [facility] 06-02-2023 Miscellaneous Notes Called patient to make an appointment for her. Patient stated that she received a letter from the [facility] that due to some of the results [...] Enedina Avalos MA documented in this encounter [facility] 05-23-2023 Miscellaneous Notes Radiology Service Progress Note [...] 2023 10:43 AM documented in this encounter [facility] 05-11-2023 Miscellaneous Notes Patient notified and voiced understanding. Enedina Avalos MA ----- Message from Lucia Mariano APRN.MEDICAL GENETICIST sent at 05/11/2023 8:30 AM EDT ----- COVID, Flu, RSV all negative. Lucia Mariano APRN.MEDICAL GENETICIST documented in this encounter [facility] 05-11-2023 Miscellaneous Notes Patient notified and voiced understanding. Enedina Avalos MA Chest x-ray shows new nodule in left lung. Needs CT chest, see orders. Lucia Mariano APRN.MEDICAL GENETICIST documented in this encounter [facility] 05-10-2023 Note HNO ID: [id number] Author: Lucia Mariano APRN.CNP Service: ? Author Type: Nurse Practitioner Type: Progress Notes Filed: 05/10/2023 10:05 PM Note Text: This note was created using Rebiotix[employer]. Subjective Ananya Bowers is a 57 year [...] racing with prednisone was reported to her inspector cold working. 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 [facility] 05-10-2023 History of Presen t illness Narrative This note was created using Lockbox. Subjective Ananya Bowers is a 57 year [...] racing with prednisone was reported to her inspector cold working. 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 Mouth/Throat: Lips: [place]. Mouth: Mucous membranes are moist. No oral [...] NEBULIZATION SOLN FU 2-3 weeks Lucia Mariano APRN.MEDICAL GENETICIST documented in this encounter [facility] 05-01-2023 Note HNO ID: [id number] Author: Lorenzo Emmanuel MD Service: ? 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 Resources discussed/offered to patient: next appointment with [...] 2023 4:24 PM documented in this encounter [facility] 04-29-2023 Nurse Note REVIEW OF SYSTEMS: General: [...] Haley Mcarthur RN documented in this encounter [facility] 04-26-2023 Miscellaneous Notes Patient informed of referral information and recommendations. Transferred patient to schedule appointment. Edelmira Mayer MA Patient needs to have a colonoscopy again, Dr. Emmanuel is still practicing in [place] and [place]. I've placed a referral for her to see him. She can call [phone] to schedule If she is experiencing abdominal [...] colonoscopy was 10/11/[address] Emmanuel in [place]. Please advise. Edelmira Mayer MA ----- Message [...] and bloody stools Was Patient Referred to [facility]/Seek Emergency Treatment (Y/N): no Did Patient Agree (Y/N): n/a Was An Attempt Made To Transfer The Patient To The Office (Y/N): no Were You Able To Reach Someone At The Office (Y/N): n/a If Yes - Patient Was Transferred To (Caregivers Name): n/a If No - Which [facility] Leadership Maintenance Team Member Did You Speak With Regarding This Patient: n/a Was an appointment scheduled (Y/N): no-unable to schedule based on 4cq Reason patient was requesting visit (RFV/signs and symptoms/diagnosis) : diarrhea and bloody stools Person calling if other than patient: n/a Return call to if other than patient: n/a Best contact number: [phone] Thank you, Tasha Goel April 25, 2023 11:05 AM documented in this encounter [facility] 03-02-2023 Miscellaneous Notes Patient notified. Enedina Avalos MA Please notify pt her mammogram and US of the breast was normal Josseline Gillespie DO Received patient's diagnostic mammogram and ultrasound results from [facility] that were ordered by Dr. Gillespie, placed in green folder to review. Please advise. Edelmira Mayer MA documented in this encounter [facility] 02-09-2023 Note HNO ID: [id number] Author: Josseline Gillespie DO Service: ? Author [...] US BREAST LTD LEFT Josseline Gillespie DO [facility] 02-09-2023 Nurse Note Ludin script mailed to patient. Edelmira Mayer MA documented in this encounter [facility] 02-09-2023 History of Presen t illness Narrative [...] Josseline Gillespie DO documented in this encounter [facility] documented as of this encounter (statuses as of 04/23/2022) [facility] History of Past illness Narrative* Problem Noted Date Resolved Date Special screening for malignant neoplasms, colon 10/03/2014 12/02/2016 Abdominal pain, epigastric 10/03/201412/02 documented as of this encounter (statuses as of 02/24/2023) [facility] History of Past illness Narrative* Problem Noted Date Resolved Date Special screening for malignant neoplasms, colon 10/03/2014 12/02/2016 Abdominal pain, epigastric 10/03/201412/02 documented as of this encounter (statuses as of 03/02/2023) [facility] History of Past illness Narrative* Problem Noted Date Diagnosed Date Resolved Date Special screening for malign ant neoplasms, colon 10/03/2014 12/02/2016 Abdominal pain, epigastric 10/03/2014 0 12/02/2016 documented as of this encounter (statuses as of 04/26/2023) [facility] History of Past illness Narrative* Problem Noted Date Diagnosed Date Resolved Date Special screening for malign ant neoplasms, colon 10/03/2014 12/02/2016 Abdominal pain, epigastric 10/03/2014 0 12/02/2016 documented as of this encounter (statuses as of 04/30/2023) [address] History of Past illness Narrative* Problem Noted Date Diagnosed Date Resolved Date Special screening for malign ant neoplasms, colon 10/03/2014 12/02/2016 Abdominal pain, epigastric 10/03/2014 0 12/02/2016 documented as of this encounter (statuses as of 05/01/2023) [address] History of Past illness Narrative* Problem Noted Date Diagnosed Date Resolved Date Special screening for malign ant neoplasms, colon 10/03/2014 12/02/2016 Abdominal pain, epigastric 10/03/2014 0 12/02/2016 documented as of this encounter (statuses as of 05/11/2023) [address] History of Past illness Narrative* Problem Noted Date Diagnosed Date Resolved Date Special screening for malign ant neoplasms, colon 10/03/2014 12/02/2016 Abdominal pain, epigastric 10/03/2014 0 12/02/2016 documented as of this encounter (statuses as of 05/11/2023) [address] History of Past illness Narrative* Problem Noted Date Diagnosed Date Resolved Date Special screening for malign ant neoplasms, colon 10/03/2014 12/02/2016 Abdominal pain, epigastric 10/03/2014 0 12/02/2016 documented as of this encounter (statuses as of 05/11/2023) [address] History of Past illness Narrative* Problem Noted Date Diagnosed Date Resolved Date Special screening for malign ant neoplasms, colon 10/03/2014 12/02/2016 Abdominal pain, epigastric 10/03/2014 0 12/02/2016 documented as of this encounter (statuses as of 05/24/2023) [address] History of Past illness Narrative* Problem Noted Date Diagnosed Date Resolved Date Special screening for malign ant neoplasms, colon 10/03/2014 12/02/2016 Abdominal pain, epigastric 10/03/2014 0 12/02/2016 documented as of this encounter (statuses as of 06/03/2023) [address] History of Past illness Narrative* Problem Noted Date Diagnosed Date Resolved Date Special screening for malign ant neoplasms, colon 10/03/2014 12/02/2016 Abdominal pain, epigastric 10/03/2014 0 12/02/2016 documented as of this encounter (statuses as of 06/28/2023) [facility] History of Past illness Narrative* Problem Noted Date Diagnosed Date Resolved Date Special screening for malign ant neoplasms, colon 10/03/2014 12/02/2016 Abdominal pain, epigastric 10/03/2014 0 12/02/2016 documented as of this encounter (statuses as of 07/30/2023) [facility] noteN/ADept. of Dermatology Evaluation note* Diagnosis Lipoma of right axilla- Primary Lipoma of right upper extremity Lipoma of other specified sites Mass of right breast, unspecified quadrant Mass of left breast, unspecified quadrant documented in this encounter [facility] note* Diagnosis Rectal bleeding- Primary Hemorrhage of rectum and anus documented in this encounter [facility] note* Diagnosis Rectal bleeding Hemorrhage of rectum and anus documented in this encounter [facility] note* Diagnosis COPD with exacerbation (HCC)- Primary Obstructive chronic bronchitis with exacerbation Upper respiratory virus Acute upper respiratory infections of unspecified site Cough, unspecified type Poison neva dermatitis Contact dermatitis and other eczema due to plants (except food) Wheezing Dyspnea, unspecified type documented in this encounter [facility] note* Diagnosis Nodule of left lung- Primary Solitary pulmonary nodule [facility] Diagnosis Nodule of left lung Solitary pulmonary nodule [facility] Diagnosis COPD with exacerbation (HCC) Obstructive chronic bronchitis with exacerbation Dyspnea, unspecified type [facility] Diagnosis Coronary artery disease of [place] artery of [place] heart with stable angina pectoris (HCC)- Primary SOB (shortness of breath) Shortness of breath History of heart artery stent Postsurgical percutaneous transluminal coronary angioplasty status Neoplasm of uncertain behavior of skin of forearm Neoplasm of uncertain behavior of skin documented in this encounter [facility] for referral (narrative)* Name Reason for referral NA SAMANTHA Dept. of Dermatology Reason for referral (narrative)* Diagnostic Procedure Only (Routine) - Authorized Specialty Diagnoses / Procedures Referred By Demetrius tiwari Referred To Contact [facility] Diagnoses Mass of left breast, unspecified quadrant Procedures US BREAST LTD LEFT US BREAST UNI REAL TIME WITH IMAGE LIMITED Sheets, Josseline Chapman DO [address] [place] [address] [facility] [address] [place] [address] Referral ID Status Reason Start Date Expiration Date Visits Requested Visits Authorized [id number] Authorized Auto-Generat ed Referral 02/09/2023 03/10/2024 1 1 * Diagnostic Procedure Only (Routine) - Authorized Specialty Diagnoses / Procedures Referred By Demetrius tiawri Referred To Contact [facility] Diagnoses Mass of right breast, unspecified quadrant Procedures US BREAST LTD RIGHT US BREAST UNI REAL TIME WITH IMAGE LIMITED Josseline Gillespie DO [address] [place] [address] [facility] [address] [place] [address] Referral ID Status Reason Start Date Expiration Date Visits Requested Visits Authorized [id number] Authorized Auto-Generat ed Referral 02/09/2023 03/10/2024 1 1 * Diagnostic Procedure Only (Routine) - Authorized Specialty Diagnoses / Procedures Referred By Demetrius tiwari Referred To Contact [facility] Diagnoses Mass of right breast, unspecified quadrant Mass of left breast, unspecified quadrant Procedures MINDA DIAGNOSTIC BILATERAL DIAGNOSTIC MAMMOGRAPHY COMPUTER-AIDED DETCJ BI Josseline Gillespie DO [address] [place] [address] [facility] [address] [place] [address] Referral ID Status Reason Start Date Expiration Date Visits Requested Visits Authorized [id number] Authorized Auto-Generat ed Referral 02/09/2023 03/10/2024 1 1 * Consult, Test, Treat (Routine) - Authorized Specialty Diagnoses / Procedures Referred By Demetrius tiwari Referred To Contact General Surgery / [facility] Department Diagnoses Lipoma of right axilla Procedures CONSULT TO GENERAL SURGERY OFFICE/OUTPATIENT NEW HIGH MDM 60-74 MINUTES Josseline Gillespie DO [address] [place] [address] Lorenzo Emmanuel MD [address] [place] [address] Referral ID Status Reason Start Date Expiration Date Visits Requested Visits Authorized [id number] Authorized PCP Requested Referral 02/09/2023 02/09/2024 1 1 [facility] Summary Purpose Family History No Family History [...] bleeding Procedures CONSULT TO GENERAL SURGERY OFFICE/OUTPATIENT [facility] MDM 60-74 MINUTES Lucia Mariano, SENIOR SPEECH PATHOLOGIST.MEDICAL GENETICIST [address] [place] [address] Lorenzo Emmanuel MD [address] [place] [address] Referral ID Status Reason Start Date Expiration Date Visits Requested Visits Authorized [id number] Authorized PCP Requested Referral 04/25/2023 04/24/2024 1 1 Specialty Diagnoses / Procedures Referred By Contac t Referred To Contact Diagnoses COPD with exacerbation (HCC) Dyspnea, unspecified type Lucia Mariano SENIOR SPEECH PATHOLOGIST.MEDICAL GENETICIST [address] [place] [address] Referral ID Status Reason Start Date Expiration Date Visits Re quested Visits Authorized [id number] Closed 1 1 Specialty Diagnoses / Procedures Referred By Contac t Referred To Contact CT IMAGING Diagnoses Nodule of left lung Procedures CT CHEST WO IVCON DIAGNOSTIC COMPUTED TOMOGRAPHY THORAX W/O CNTRST Lucia Mariano SENIOR SPEECH PATHOLOGIST.MEDICAL GENETICIST [address] [place] [address] [place] [address] Referral ID Status Reason Start Date Expiration Date Visits Requested Visits Authorized [id number] Pending Review Auto-Generat ed Referral 05/10/2023 06/08/2024 1 1 Specialty Diagnoses / Procedures Referred By Demetrius tiwari Referred To Contact Diagnoses Neoplasm of uncertain behavior of skin of forearm Procedures CONSULT TO DERMATOLOGY OFFICE/OUTPATIENT [facility] 60-74 MINUTES Josseline Gillespie DO [address] [facility] [place] [address] Cristhian Carver MD [address] [place] [address] Referral ID Status Reason Start Date Expiration Date Visits Requested Visits Authorized [id number] Authorized PCP Requested Referral 3 07/14/2024 1 [...] DATE CREATED AUTHOR AUTHOR'S ORGANIZ ATION 03/08/2023 [facility] [place] DATE CREATED AUTHOR AUTHOR'S ORGANIZ ATION 06/02/2023 [facility] DATE CREATED AUTHOR AUTHOR'S ORGANIZ ATION 08/09/2023 [facility] Source Comments (unrecognize d section and content) In the event this informatio n is protected by the Federal Confidentiality of Alcohol and Drug Abuse Patient Records regulations: The Federal rules restrict any use of the information to criminally investigate or prosecute any alcohol or drug abuse patient.[facility] the event this information is protected by the Federal Confidentiality of Alcohol and Drug Abuse Patient Records regulations: The Federal rules restrict any use of the information to criminally investigate or prosecute any alcohol or drug abuse patient.[facility] the event this information is protected by the Federal Confidentiality of Alcohol and Drug Abuse Patient Records regulations: The Federal rules restrict any use of the information to criminally investigate or prosecute any alcohol or drug abuse patient.[facility] the event this information is protected by the Federal Confidentiality of Alcohol and Drug Abuse Patient Records regulations: The Federal rules restrict any use of the information to criminally investigate or prosecute any alcohol or drug abuse patient.[facility] the event this information is protected by the Federal Confidentiality of Alcohol and Drug Abuse Patient Records regulations: The Federal rules restrict any use of the information to criminally investigate or prosecute any alcohol or drug abuse patient.[facility] the event this information is protected by the Federal Confidentiality of Alcohol and Drug Abuse Patient Records regulations: The Federal rules restrict any use of the information to criminally investigate or prosecute any alcohol or drug abuse patient.[facility] the event this information is protected by the Federal Confidentiality of Alcohol and Drug Abuse Patient Records regulations: The Federal rules restrict any use of the information to criminally investigate or prosecute any alcohol or drug abuse patient.[facility] the event this information is protected by the Federal Confidentiality of Alcohol and Drug Abuse Patient Records regulations: The Federal rules restrict any use of the information to criminally investigate or prosecute any alcohol or drug abuse patient.[facility] the event this information is protected by the Federal Confidentiality of Alcohol and Drug Abuse Patient Records regulations: The Federal rules restrict any use of the information to criminally investigate or prosecute any alcohol or drug abuse patient.[facility] the event this information is protected by the Federal Confidentiality of Alcohol and Drug Abuse Patient Records regulations: The Federal rules restrict any use of the information to criminally investigate or prosecute any alcohol or drug abuse patient.[facility] the event this information is protected by the Federal Confidentiality of Alcohol and Drug Abuse Patient Records regulations: The Federal rules restrict any use of the information to criminally investigate or prosecute any alcohol or drug abuse patient.[facility] the event this information is protected by the Federal Confidentiality of Alcohol and Drug Abuse Patient Records regulations: The Federal rules restrict any use of the information to criminally investigate or prosecute any alcohol or drug abuse patient.[facility] the event this information is protected by the Federal Confidentiality of Alcohol and Drug Abuse Patient Records regulations: The Federal rules restrict any use of the information to criminally investigate or prosecute any alcohol or drug abuse patient.[facility] Reason for Visit (unrecogniz ed section and content) Reason Comments Establish Care [facility]. Lump under right arm and at [...] bleeding Procedures CONSULT TO GENERAL SURGERY OFFICE/OUTPATIENT [facility] 60-74 MINUTES Lucia Mariano, SENIOR SPEECH PATHOLOGIST.MEDICAL GENETICIST [address] [place] [address] Lorenzo Emmanuel MD [address] [facility] [place] [address] Referral ID Status Reason Start Date Expiration Date V isits Requested Visits Authorized [id number] Closed PCP Requested Referral 04/25/2023 04/24/2024 1 [...] COMPUTED TOMOGRAPHY THORAX W/O CNTRST Lucia Mariano, SENIOR SPEECH PATHOLOGIST.MEDICAL GENETICIST [address] [place] [address] [place] [address] Referral ID Status Reason Start Date Expiration Date V isits Requested Visits Authorized [id number] Closed Auto-Generate d Referral 05/11/2023 07/10/2023 1 1 Reason Comments Appointment Reason Comments Refill Request Reason Comments Hospital Follow Up Had two stents place d at [facility]. Has had two episodes of chest discomfort since surgery. Has had some sharp chest pains a week ago. Still SOB but was told it was from one of her medications and she has to take it for a month before they will change it. Care Teams (unrecognized sec tion and content) Maintenance Team Member Relationship Specialty Start Date End Date Terri Kaur MD PCP - General Internal Medicine 12/02/16 02/21/23 Alphonso, Fertile S French Lecturer Cardiology 12/02/16 Lorenzo Emmanuel MD [address] [place] [address] French Lecturer General Surgery 12/02/16 Maintenance Team Member Relationship Specialty Start Date End Date Josseline Gillespie DO [address], [place] [id number] PCP - General Family Medicine 02/22/23 Alphonso, Fertile S French Lecturer Cardiology 12/02/16 Lorenzo Emmanuel MD [address] [place] [address] French Lecturer General Surgery 12/02/16 Maintenance Team Member Relationship Specialty Start Date End Date Josseline Gillespie DO [address] [place] [address] PCP - General Family Medicine 02/22/23 Alphonso, Norberto S French Lecturer Cardiology 12/02/16 Lorenzo Emmanuel MD [address] [place] [address] French Lecturer General Surgery 12/02/16 Maintenance Team Member Relationship Specialty Start Date End Date Josseline Gillespie DO [address] [place] [address] PCP - General Family Medicine 02/22/23 AlphonsoNorberto correa S French Lecturer Cardiology 12/02/16 Lorenzo Emmanuel MD [address] [place] [address] French Lecturer General Surgery 12/02/16 Maintenance Team Member Relationship Specialty Start Date End Date Josseline Gillespie DO [address] [place] [address] PCP - General Family Medicine 02/22/23 Norberto Werner S French Lecturer Cardiology 12/02/16 Lorenzo Emmanuel MD [address] [place] [address] French Lecturer General Surgery 12/02/16 Maintenance Team Member Relationship Specialty Start Date End Date Josseline Gillespie DO [address] [place] [address] PCP - General Family Medicine 02/22/23 Norberto Werner S French Lecturer Cardiology 12/02/16 Lorenzo Emmanuel MD [address] [place] [address] French Lecturer General Surgery 12/02/16 Maintenance Team Member Relationship Specialty Start Date End Date Sheets, Josseline Chapman DO [address] [place] [address] PCP - General Family Medicine 02/22/23 Norberto Werner French Lecturer Cardiology 12/02/16 Lorenzo Emmanuel MD [address] [facility] [place] [address] French Lecturer General Surgery 12/02/16 Maintenance Team Member Relationship Specialty Start Date End Date SheetsJosseline DO [address] [place] [address] PCP - General Family Medicine 02/22/23 Norberto Werner French Lecturer Cardiology 12/02/16 Lorenzo Emmanuel MD [address] [facility] [place] [address] French Lecturer General Surgery 12/02/16 Maintenance Team Member Relationship Specialty Start Date End Date SheetsJosseline DO [address] [place] [address] PCP - General Family Medicine 02/22/23 Norberto Werner MD French Lecturer Cardiology 12/02/16 Lorenzo Emmanuel MD [address] [facility] [address] French Lecturer General Surgery 12/02/16 Maintenance Team Member Relationship Specialty Start Date End Date SheetsJosseline DO [address] [place] [address] PCP - General Family Medicine 02/22/23 Norberto Werner MD French Lecturer Cardiology 12/02/16 Lorenzo Emmanuel MD [address] [facility] [place] [address] French Lecturer General Surgery 12/02/16 Maintenance Team Member Relationship Specialty Start Date End Date Josseline Gillespie DO [address] [place] [address] PCP - General Family Medicine 02/22/23 Norberto Werner MD French Lecturer Cardiology 12/02/16 Lorenzo Emmanuel MD [address] [place] [address] French Lecturer General Surgery 12/02/16 Maintenance Team Member Relationship Specialty Start Date End Date Josseline Gillespie DO [address] [place] [address] PCP - General Family Medicine 02/22/23 Norberto Werner MD French Lecturer Cardiology 12/02/16 Lorenzo Emmanuel MD [address] [facility] [place] [place] [address] French Lecturer General Surgery 12/02/16 FOR RECORDS PERTAINING TO [...] BE BASED ON THE PRIMARY CLINICAL RECORDS. [facility] [employer] [facility]. provides no warranty or guarantee of the accuracy or completeness of information in this document.
[2023-11-04 16:24] LABS: ACT Activated Clotting Time 309 sec (74-137)
== END 2023-09-12 17:00 | disposition home or self-care (01) ==
LOC: PAT 10-25 14:30
PROVIDERS: PCP Family Medicine; Visit Provider Internal Medicine Cardiovascular Disease
DX: R07.89 Other chest pain (principal); I25.10 Atherosclerotic heart disease of native coronary artery without angina pectoris; I10 Essential (primary) hypertension; E78.00 Pure hypercholesterolemia, unspecified; Z95.5 Presence of coronary angioplasty implant and graft; R00.2 Palpitations; R06.02 Shortness of breath; F17.210 Nicotine dependence, cigarettes, uncomplicated; Z82.49 Family history of ischemic heart disease and other diseases of the circulatory system; Z79.82 Long term (current) use of aspirin
CPT/HCPCS: 92928; 85347; 92920; 93458; 99152; 99153; J7040; Q9967; C1725; C1769; C1874; C1887; C1894; C9600

== ENCOUNTER 2023-09-12 16:16 | Observation (INO) | payer MEDICAID, SELFPAY ==
[2023-09-12] VITALS (9 sets, daily range): BP systolic 104–135; BP diastolic 58–80; PULSE 73–94; RESP 14–18; TEMP 36.3–37.1; O2SAT 81–100; BMI 34.9
[2023-09-12 08:37] LABS: Absolute Lymphocyte Count 2.91 X10^3/uL (0.83-4.51); Absolute Neutrophil Count 4.9 X10^3/uL (2.0-7.7); Basophil# 0.06 X10^3/uL; Basophil% 0.7 % (0-1); Eosinophil# 0.12 X10^3/uL; Eosinophils% 1.3 % (0-5); Hematocrit 39.8 % (37-47); Hemoglobin 13.3 g/dL (12.0-15.0); Lymphocyte # 2.91 X10^3/ul (0.83-4.51); Lymphocyte % 31.6 % (19-41); Mean Corp Hgb Conc 33.4 g/dL (32-36); Mean Corpuscular Hgb 31.9 pg (27.0-32.0); Mean Corpuscular Volume 95.4 fL (81-99); Mean Platelet Vol. 9.4 fl (6.2-12.0); NRBC Flagged by Analyzer 0 % (0-5); Neutrophil # 4.93 X10^3/uL (2.7-7.7); Neutrophil % 53.5 % (47-70); Platelet Count 270 K/mm3 (150-450); RBC Distribution Width CV 13.2 % (11.6-14.6); RBC Distribution Width SD 46.4 fl (35.1-43.9); Red Blood Count 4.17 M/mm3 (4.2-5.4); White Blood Count 9.2 K/mm3 (4.4-11.0)
[2023-09-12 09:53] LABS: AST(SGOT) 16 U/L (15-37); Alanine Aminotransfer ALT/SGPT 26 U/L (13-56); Albumin, Serum 3.9 g/dL (3.2-5.0); Alkaline Phosphatase 74 U/L (45-117); Anion Gap 9 (5-15); BUN 26 mg/dL (7-18); BUN/Creat Ratio 31.9 RATIO (10-20); Calcium,Total 9.6 mg/dL (8.5-10.1); Chloride 106 mmol/L (98-107); Cholesterol 181 mg/dL (200); Creatinine, Serum 0.81 mg/dL (0.55-1.02); EST Glomerular Filtration Rate 76 mL/min (>60); Est Glom Filt Rate - Afr Amer 92 mL/min (>60); Globulin 3.5 g/dL (2.2-4.2); Glucose 107 mg/dL (74-106); High Density Lipoprotein 60 mg/dL; Potassium 4.2 mmol/L (3.5-5.1); Protein, Total 7.4 g/dL (6.4-8.2); Sodium Level 140 mmol/L (136-145); Triglycerides 98 mg/dL; Very Low Density Lipoprotein 20 mg/dL (5-40)
--- NOTE | 2023-09-12 12:24 | PCIREPORT_ITS ---
PCI Cardiac Cath Report PCI Report: PCI cardiac cath report; 1. Successful PCI of mid LAD, 80% eccentric lesion With predilatation using 2.5 x 12 mm balloon Followed by placement of drug-eluting stent 3 x 22 mm [place] front[place]/JOANN Postdilated using 3.5 x 15 mm NC with reduction of stenosis from 80% to 0% And pre and post HUNTER-3 flow 2. Successful PTCA of mid OM1 branch with balloon dilatation using 2.5 x 12 mm image MR balloon with reduction of stenosis from 90% to 30%. 3. Placement of TR band to close the right radial artery arteriotomy site. Consent; Risk and benefit of the procedure explained detail to the patient elected to proceed informed consent obtained. Preprocedure diagnosis. This is a 57-year-old patient with history of CAD prior PCI stent of LAD as well as left circumflex artery which is a bifurcation stent of OM1 and the mid circumflex artery Patient has a symptoms of chest pain typical of angina. Also she had a sidebranch which is a small diagonal branch with a high-grade stenosis/jailed prior sidebranch by LAD stenting. Based on her clinical presentation with prior coronary artery stent she underwent cardiac catheterization by the primary jewel hole finish opener Dr. Werner Angiographic films reviewed LV systolic function preserved ejection fraction of 60%, left main is normal angiographically, LAD calcified in the proximal to mid segment with an eccentric lesion of around 70-80% stenosis in the proximal segment and the very diagonal vessel with an 80% stenosis. The circumflex artery previously stented in the mid segment patent stents demonstrated however there is a lesion in the OM1 at the midportion of the vessel which at least around 80-90%. Interventional equipment used in the Pulling Unit Floorhand; 1. We used 6 Canadian JL 4 guide 2. 0.014 180 cm run-through extra floppy straight guidewire 3. 0.035 to 60 cm J exchange wire 4. 2.5 x 12 mm manage balloon 5. 3 x 22 mm [place] frontiers drug-eluting stent 6. 3.5 x 15 mm emerge NC balloon Medication used in the Pulling Unit Floorhand #1 Plavix 300 mg was given in the Pulling Unit Floorhand Patient was on aspirin Heparin IV with acceptable ACT level IC nitroglycerin x 3 Procedure in detail; Under fluoroscopic guidance we will proceed with a 6 Canadian JL 4 advancing aorta cannulated the left main without difficulty following this we will proceed with run-through wire across the lesion in the LAD and predilated the lesion using 2.5 x 12 followed by placement of drug-eluting stent and then postdilated using 3.5 x 15 mm NC balloon with excellent result in the LAD The same guidewire which is run-through guidewire was used to cross the lesion in the OM1 and then we proceed with balloon dilatation and we were able to reduce the stenosis from 90% to 30% using intra coronary nitroglycerin there was no stent placed in the OM1 branch. And patency of the bifurcation stents was clear. TR band applied to right radial artery arteriotomy site with no complication in the Pulling Unit Floorhand Conclusion recommendation #1 patient will be admitted over the night and will continue on dual antiplatelet therapy with aspirin and Plavix Patient will be scheduled for phase 1 cardiac rehab program at [facility] 3. Patient to follow-up with the primary jewel hole finish opener Dr. Werner for continuation of cardiac care and clinical follow-up. Shira Pérez MD,FACC,[facility]
--- NOTE | 2023-09-12 14:33 | CRPHASE1_ITS ---
Patient Communication Patient Information Former Patient:: Phase I PHII Cardiac Rehab Discussed with Patient:: Yes Guide to Cardiac Rehab Given to Patient:: Yes Cardiac Rehab Facility Choice List Given to Patient:: Yes Communication to Cardiac Rehab Choice Program [facility] CR PHII:: Communication Given to CR Validation Engineer:: Shira Pérez Phase II Cardiac Rehab:: Yes Sessions:: 36 sessions - 3 days/wk, 12 weeks Cardiac Rehabilitation Info Program Information Cardiac Rehabilitation Program Information: Cardiac Rehab The cardiac rehab team at [facility] consists of highly skilled exercise physiologists, nurses, respiratory therapists and physicians working together with you. Our purpose is to help you have a full recovery and achieve the goals you set for yourself. Over the years many of our patients have returned to activities they assumed they would never do again! We can help restore your confidence and motivation to make lifestyle changes that can have a significant impact on your health and quality of life! We can help answer questions and concerns you may have about exercise, lifestyle, medications, diet, stress and anxiety which are common following a hospitalization. WE monitor ECG and vital signs during exercise and discuss your progress with you and report to your physician(s). Cardiac Rehab is proven to help reduce readmissions, improve functional capacity and lower recurrence of problems with your heart. Our Cardiac Rehab program is Certified by the [place] [employer] Pulmonary [employer] (AACVPR) and Accredited by the [place] [employer] through our [facility]. You can contact us at . We invite you to call us with your questions or to get started in our program. If you have other questions or concerns be sure to ask your physician/provider during your follow-up visit. WE look forward to seeing you!
--- NOTE | 2023-09-12 14:34 | EKG12_ITS ---
Test Reason : AM EKG Blood Pressure : / mmHG Vent. Rate : 091 BPM Atrial Rate : 091 BPM P-R Int : 144 ms QRS Dur : 086 ms QT Int : 398 ms P-R-T Axes : 045 026 040 degrees QTc Int : 489 ms Normal sinus rhythm Prolonged QT Abnormal ECG When compared with ECG of 12-SEP-2023 14:38, MANUAL COMPARISON REQUIRED, DATA IS UNCONFIRMED Confirmed by LIU ALICEA, NICOLAS ([id number]), senior editor CAR ZENG ([id number]) on 09/13/2023 7:48:44 AM Referred By: Vicky Glez Confirmed By:NICOLAS HATFIELD MD
--- NOTE | 2023-09-12 14:34 | CRPH1.INSTRU ---
General Education Discussed with Patient CAD and cardiac anatomy and function:: Patient communicates acknowledgment Explanation of diagnoses and procedures:: Patient communicates acknowledgment Sign/Symptoms of [place]:: Patient communicates acknowledgment Antiplatelet therapy: Patient communicates acknowledgment Proper use of NTG-SL: Patient communicates acknowledgment Emergency procedures and activation of EMS: Patient communicates acknowledgment Compliance of all prescribed medications: Patient communicates acknowledgment Smoking Risk Factors Patient Nicotine/Smoking Risk Factors Are:: Cigarettes Recommendations Recommendations Include:: Smoking cessation strategies/Smoking packet and Participation in a smoking cessation program Response Code Nicotine/Smoking Response Code:: Patient communicates acknowledgment Dyslipidemia Risk Factors Patient Dyslipidemia Risk Factors Are:: Total Cholesterol, Triglycerides, HDL and LDL Recommendations Recommendations Include:: Lipid profile provided, Reviewed NCEP/ATP guidelines and Therapeutic Lifestyle Change dietary guidelines Response Code Dyslipidemia Response Code:: Patient communicates acknowledgment Overweight/Obesity Risk Factors Patient Overweight/Obesity Risk Factors Are:: Obesity - > or = 30 Recommendations Recommendations Include:: Weight loss of 5-10%, Reduced calorie diet and Exercise 5-7 times/week Response Code Overweight/Obesity:: Patient communicates acknowledgment Hypertension Recommendations Recommendations Include:: Maintain BP <130/85, DASH dietary guidelines, Decrease/maintain normal body weight and Moderation of ETOH Response Code Hypertension:: Patient communicates acknowledgment Heart Disease Risk Factors Patient Heart Disease Risk Factors Are:: Previous cardiac event Response Code Heart Disease Response Code:: Patient communicates acknowledgment Diabetes Risk Factors Patient Diabetes Risk Factors Are:: No documented hx of diabetes Metabolic Syndrome Risk Factors Patient Metabolic Syndrome Risk Factors Are [3 of 5]:: Fasting blood sugar > 100 mg/dL, Waist circumference > 35 [female] or 40 [male], High triglyceride >150, Hypertension and Low HDL <40 [male] or < 50 [female] Recommendations Recommendations Include:: Reinforce compliance to risk factor modifications and Encouraged follow-up with Primary Care Physician Response Code Metabolic Syndrome Response Code:: Patient communicates acknowledgment Sedentary Risk Factors Patient Sedentary Risk Factors Are:: Lack of regular exercise Recommendations Recommendations Include:: Aerobic exercise 5-7 times/week for 20-30 minutes continuously, Benefits of regular exercise, Discussed home walking program and Monitored Outpatient Cardiac Rehab Response Code Sedentary Response Code:: Patient communicates acknowledgment Stress Recommendations Recommendations Include:: Identification of stressors, and assessment of coping skills and Stress management techniques Response Code Stress Response Code:: Patient communicates acknowledgment
[2023-09-12] MEDS: 0.9% Normal Saline (1000mL) 1,000 ML 75 ML IV (15:21)
[2023-09-13 01:19] VITALS: BP 134/72; PULSE 75; RESP 16; TEMP 36.4; O2SAT 97
[2023-09-13 02:40] VITALS: BP 124/73; PULSE 79; RESP 16; TEMP 36.4; O2SAT 97
[2023-09-13 07:05] LABS: Hematocrit 37.3 % (37-47); Hemoglobin 12.8 g/dL (12.0-15.0); Mean Corp Hgb Conc 34.3 g/dL (32-36); Mean Corpuscular Hgb 32.1 pg (27.0-32.0); Mean Corpuscular Volume 93.5 fL (81-99); Mean Platelet Vol. 9.1 fl (6.2-12.0); Platelet Count 222 K/mm3 (150-450); RBC Distribution Width CV 13.2 % (11.6-14.6); RBC Distribution Width SD 45.6 fl (35.1-43.9); Red Blood Count 3.99 M/mm3 (4.2-5.4); White Blood Count 8.1 K/mm3 (4.4-11.0)
--- NOTE | 2023-09-13 07:26 | PN.CARD_ITS ---
Subjective Subjective Patient seen and evaluated. Appears to be doing well. Had uneventful night. Objective Data Vital Signs: Vital Signs Temp Pulse Resp BP Pulse Ox O2 Del Method 97.5 F L 79 16 124/73 H 97 Room Air 09/13/23 02:40 09/13/23 02:40 09/13/23 02:40 09/13/23 02:40 09/13/23 02:40 09/13/23 03:10 Oxygen Delivery Method Room Air Weight: 197 lb 1.492 oz Body Mass Index (BMI) 34.9 Intake & Output: Intake and Output for Last 24 Hours 09/11/23 09/12/23 09/13/23 23:59 23:59 23:59 Intake Total 820 / 820 670 / 670 Balance 820 / 820 670 / 670 Lab / Micro Data 09/13/23 06:40 09/12/23 07:50 Labs: Laboratory Results - last 24 hr 09/12/23 07:50: WBC 9.2, RBC 4.17 L, Hgb 13.3, Hct 39.8, MCV 95.4, MCH 31.9, MCHC 33.4, RDW Std Deviation 46.4 H, RDW Coeff of Gabriel 13.2, Plt Count 270, MPV 9.4, Immature Gran % (Auto) 0.900, Neut % (Auto) 53.5, Lymph % (Auto) 31.6, [place] % (Auto) 12.0 H, Eos % (Auto) 1.3, Baso % (Auto) 0.7, Absolute Neuts (auto) 4.9, Absolute Lymphs (auto) 2.91, Nucleated RBC % 0, Sodium 140, Potassium 4.2, Chloride 106, Carbon Dioxide 25.0, Anion Gap 9, BUN 26 H, Creatinine 0.81, Est GFR (MDRD) Af Amer 92, Est GFR (MDRD) Non-Af 76, BUN/Creatinine Ratio 31.9 H, Glucose 107 H, Calcium 9.6, Total Bilirubin 0.40, Direct Bilirubin 0.10, AST 16, ALT 26, Alkaline Phosphatase 74, Total Protein 7.4, Albumin 3.9, Globulin 3.5, Triglycerides 98, Cholesterol 181, LDL Cholesterol 101, VLDL Cholesterol 20, HDL Cholesterol 60 09/13/23 06:40: WBC 8.1, RBC 3.99 L, Hgb 12.8, Hct 37.3, MCV 93.5, MCH 32.1 H, MCHC 34.3, RDW Std Deviation 45.6 H, RDW Coeff of Gabriel 13.2, Plt Count 222, MPV 9.1 Cardiology Labs/Tests 09/12/23 07:50: WBC 9.2, RBC 4.17 L, Hgb 13.3, Hct 39.8, MCV 95.4, MCH 31.9, MCHC 33.4, Plt Count 270, MPV 9.4, Immature Gran % (Auto) 0.900, Neut % (Auto) 53.5, Lymph % (Auto) 31.6, [place] % (Auto) 12.0 H, Eos % (Auto) 1.3, Baso % (Auto) 0.7, Absolute Neuts (auto) 4.9, Nucleated RBC % 0, Sodium 140, Potassium 4.2, Chloride 106, Carbon Dioxide 25.0, Anion Gap 9, BUN 26 H, Creatinine 0.81, Est GFR (MDRD) Af Amer 92, Est GFR (MDRD) Non-Af 76, BUN/Creatinine Ratio 31.9 H, Glucose 107 H, Calcium 9.6, Total Bilirubin 0.40, Direct Bilirubin 0.10, Triglycerides 98, Cholesterol 181, LDL Cholesterol 101, VLDL Cholesterol 20, HDL Cholesterol 60 09/13/23 06:40: WBC 8.1, RBC 3.99 L, Hgb 12.8, Hct 37.3, MCV 93.5, MCH 32.1 H, MCHC 34.3, Plt Count 222, MPV 9.1 Rhythm: EKG: ECHO: Stress Test: Cardiac Cath: PCI: CT Surgery: Holter monitor: EPS: PPM: CXR: Chest CT Scan: Physical Exam Const alert, oriented x3 and no apparent distress General Appearance: cooperative HEENT hearing grossly normal bilaterally Head and Scalp: atraumatic Eyes EOMs intact bilaterally Neck General: normal visual inspection Chest inspection of chest normal and palpation of chest normal Resp normal respiratory effort Auscultation: clear to auscultation bilaterally Cardio regular rate, regular rhythm, S1 normal heart sound and S2 normal heart sound Jugular Venous Distention: JVD GI normal to inspection, nondistended, normoactive bowel sounds Extremity normal capillary refill and no pedal edema Peripheral Pulses: Yes pulses 2+ throughout and femoral pulses present Skin no rashes or lesions noted Neuro oriented x3 and CN's II-XII intact bilaterally Psych Appearance: grossly normal and appropriate Assessment & Plan Assessment/Plan (1) History of coronary artery stent placement: PLAN: Patient underwent angioplasty and stenting of the left anterior descending artery as well as the obtuse marginal branch. She appears to be doing well. The plan is for her to continue the current medical therapy and follow her at home as an outpatient and with cardiac rehabilitation. (2) Essential (primary) hypertension: PLAN: Patient blood pressure appears to be under good control at this time I would not recommend we make any changes. (3) Hyperlipidemia: QUALIFIERS: Hyperlipidemia type: pure hypercholesterolemia Qualified Code(s): E78.00 - Pure hypercholesterolemia, unspecified PLAN: Patient will continue with high intensity statin. Capacity Legal [employer] Detail Draftsperson Reflex Medical hold order details:: IF a medical hold is selected below, a suggested order for a MEDICAL HOLD will reflex upon signing the document. Next of kin: [place] law dictates a PRIORITY LIST for identifying legal decision-maker/legal next of kin in the following order (LNOK): 1st: The patient?s legal guardian, if any 2nd: The patient's spouse (if status is questionable, consult Risk Management) 3rd: The patient?s adult child(carroll) (majority, if multiple children) 4th: The patient?s parents 5th: The patient?s adult siblings (majority, if multiple children siblings)
--- NOTE | 2023-09-13 07:29 | DCINST_ITS ---
Discharge Instructions Diet Discharge Diet: No restrictions Activity Discharge Activity: Return to Normal Activity Additional Activity Instructions:: You must have someone drive you home. Do not drive until instructed by your doctor. You must have someone stay with you all night after your test. Rest in bed or on the couch until the next morning. Limit the number of times you go up and down stairs the day of your test. Apply pressure to the puncture site if you sneeze or cough. Dressing / Incision Call your doctor if your incision/area has: Increased Pain/ Swelling, Increased Redness, Foul Smelling Discharge and Swelling at the incision site Call your doctor if you observe: Fever of 101 or Higher Additional Dressing/Incision Instructions:: Keep the dressing (bandage) on until the next morning. You may then shower, but do not take a tub bath for 5 days after your test. It is normal to have some tenderness and discomfort at the puncture site. Sometimes bruising also occurs. However, if pain, numbness, or coldness occurs below the puncture site (in your leg, toes, arms or fingers) call your doctor at once. You may have a small, marble sized knot at the puncture site. This is normal. Do not rub it. It will go away in 4-6 weeks. Bleeding can occur from the area where the puncture was done. Blood may spurt or drip from the site. If blood spurts, apply pressure right away to stop bleeding and call 911. Although rare, bleeding into the tissue (hematoma) can also occur. If this happens, a large, firm area goose egg under the skin will appear. If any of these occur, lie down as flat as you can and have someone apply firm pressure to the cath site with a gauze pad or a clean washcloth for 10-15 minutes. Call 911 or go to the Emergency Department. Follow Up Care Test Results: Test results from this visit will be discussed in further detail at your follow-up appointment, if applicable. Discharge Plan Admission Admit Date/Time: 09/12/23 16:16 Attending Provider: Jennifer Leary Primary Care Provider: Olesya Gillespie Consulting Providers: Norberto Werner Discharge Orders/Prescriptions Prescriptions: No Action acetaminophen [Mapap Extra Strength] 500 mg tablet 500 mg PO Q6H PRN (Reason: fever) nitroglycerin 0.4 mg tablet, sublingual 0.4 mg SUBLINGUAL Q5-15M PRN (Reason: chest pain) Qty: 25 10RF Rx Instructions: until response; do not exceed 3 doses per event albuterol sulfate 90 mcg/actuation HFA aerosol inhaler 2 puff inhalation Q4-6H budesonide-formoterol [Symbicort] 160-4.5 mcg/actuation HFA aerosol inhaler 2 puff inhalation BID aspirin 81 MG tablet,chewable 81 mg PO DAILY isosorbide mononitrate 60 mg tablet extended release 24 hr 60 mg PO BID diltiazem HCl [Cartia XT] 240 mg capsule,extended release 24hr 240 mg PO DAILY Qty: 90 3RF losartan 100 mg tablet 100 mg PO DAILY Qty: 90 3RF metoprolol succinate 50 mg tablet extended release 24 hr 50 mg PO DAILY Qty: 90 3RF pravastatin 40 mg tablet 40 mg PO QHS Qty: 90 3RF clopidogrel 75 mg tablet 75 mg PO .COMPLEX Qty: 90 3RF Rx Instructions: 75 mg orally 4 tablets all at once on 08/06/23 for loading dose, then 1 tablet by mouth daily.; hydrochlorothiazide 12.5 mg capsule See Rx Instructions .ROUTE .COMPLEX Qty: 90 1RF Dose Instruction: TAKE 2 CAPSULES BY MOUTH ONCE DAILY DIRECTED Rx Instructions: TAKE 2 CAPSULES BY MOUTH ONCE DAILY DIRECTED omeprazole 20 mg capsule,delayed release(DR/EC) See Rx Instructions .ROUTE .COMPLEX Qty: 30 6RF Dose Instruction: TAKE 1 CAPSULE BY MOUTH DAILY Rx Instructions: TAKE 1 CAPSULE BY MOUTH DAILY Referrals / Follow Up: Olesya Gillespie DO [Primary Care Provider] - Vicky Glez NP, [employer] [Non-Staff -Ordering Privileges] - 10/11/23 10:30 am Disposition Disposition (needs filled in before D/C Order can be placed): Home, Self Care
[2023-09-13 07:40] LABS: AST(SGOT) 28 U/L (15-37); Alanine Aminotransfer ALT/SGPT 23 U/L (13-56); Albumin, Serum 3.3 g/dL (3.2-5.0); Alkaline Phosphatase 69 U/L (45-117); Anion Gap 6 (5-15); BUN 16 mg/dL (7-18); BUN/Creat Ratio 21.2 RATIO (10-20); Calcium,Total 9.6 mg/dL (8.5-10.1); Chloride 105 mmol/L (98-107); Creatinine, Serum 0.75 mg/dL (0.55-1.02); EST Glomerular Filtration Rate 83 mL/min (>60); Est Glom Filt Rate - Afr Amer 101 mL/min (>60); Estimated Creatinine Clearance 85.68 ml/min; Globulin 3.3 g/dL (2.2-4.2); Glucose 105 mg/dL (74-106); Potassium 3.7 mmol/L (3.5-5.1); Protein, Total 6.6 g/dL (6.4-8.2); Sodium Level 137 mmol/L (136-145)
[2023-09-13 08:37] VITALS: BP 114/80; PULSE 82; RESP 14; TEMP 36.6; O2SAT 100
[2023-09-13] MEDS: Clopidogrel Bisulfate 75 MG Tablet PO (08:40)
[2023-09-13] MEDS: Aspirin E.C. 81 MG Tablet PO (08:40)
--- NOTE | 2023-09-13 10:00 | EKG12_ITS ---
Test Reason : post pci Blood Pressure : / mmHG Vent. Rate : 069 BPM Atrial Rate : 069 BPM P-R Int : 134 ms QRS Dur : 086 ms QT Int : 416 ms P-R-T Axes : 056 024 034 degrees QTc Int : 445 ms Normal sinus rhythm Normal ECG When compared with ECG of 23-JUN-2023 06:01, No significant change was found Confirmed by LIU ALICEA, NICOLAS ([id number]), editor at large CAR ZENG ([id number]) on 09/13/2023 7:50:01 AM Referred By: Vicky Glez Confirmed By:NICOLAS HATFIELD MD
--- NOTE | 2023-09-13 10:01 | CASEMGMT ---
Patient has order for discharge. RN CM in to discuss discharge needs with patient. Patient denies needs or help at discharge. Patient had no further questions or concerns at this time.
--- NOTE | 2023-09-13 10:58 | PHA.DC.MR.R ---
Pharmacy [place] Med Reconciliation [facility]acy Service has performed discharge medication reconciliation for this patient. The patient's discharge medication list was reviewed for discrepancies and discrepancies were resolved. Medications at Discharge Home Medications aspirin 81 mg chewable tablet 81 mg PO DAILY 06/02/16 acetaminophen 500 mg tablet (Mapap Extra Strength) 500 mg PO Q6H PRN fever 04/20/18 diltiazem HCl 240 mg capsule,extended release 24 hr (Cartia XT) 240 mg PO DAILY #90 caps 01/31/23 losartan 100 mg tablet 100 mg PO DAILY #90 tabs 02/28/23 nitroglycerin 0.4 mg sublingual tablet 0.4 mg sublingual Q5-15M PRN chest pain #25 tabs 03/21/23 metoprolol succinate 50 mg tablet,extended release 24 hr 50 mg PO DAILY #90 tabs 05/26/23 pravastatin 40 mg tablet 40 mg PO QHS #90 tabs 06/27/23 clopidogrel 75 mg tablet 75 mg PO .COMPLEX #90 tabs 08/05/23 hydrochlorothiazide 12.5 mg capsule See Rx Instructions .Route .COMPLEX #90 caps 08/25/23 omeprazole 20 mg capsule,delayed release See Rx Instructions .Route .COMPLEX #30 caps 08/25/23 albuterol sulfate 90 mcg/actuation aerosol inhaler 2 puff inhalation Q4-6H 09/06/23 budesonide-formoterol HFA 160 mcg-4.5 mcg/actuation aerosol inhaler (Symbicort) 2 puff inhalation BID 09/06/23 isosorbide mononitrate 60 mg tablet,extended release 24 hr 60 mg PO BID 09/12/23
== END 2023-09-13 07:29 | disposition home or self-care (01) ==
LOC: CVS 16:57 → PCU 16:57
PROVIDERS: Internal Medicine Cardiovascular Disease; Internal Medicine Interventional Cardiology; Admitting Provider Physician Assistant Medical; PCP Family Medicine; Referring Provider Nurse Practitioner Gerontology; Visit Provider Physician Assistant Medical
DX: I25.110 Atherosclerotic heart disease of native coronary artery with unstable angina pectoris (principal); Z79.82 Long term (current) use of aspirin; Z95.5 Presence of coronary angioplasty implant and graft; Z79.02 Long term (current) use of antithrombotics/antiplatelets; I10 Essential (primary) hypertension; E78.00 Pure hypercholesterolemia, unspecified; Z79.899 Other long term (current) drug therapy; F17.210 Nicotine dependence, cigarettes, uncomplicated; Z82.49 Family history of ischemic heart disease and other diseases of the circulatory system
CPT/HCPCS: J7030; 36415; 80048; 80053; 80061; 80076; 85025; 85027; 85347; 92920; 92928; 93005; 93458; 96360; 96361; 99152; 99153; 99221; 99406; C1725; Q9967; A4216; C1769; C1874; C1887; C1894; C9600; G0378

== ENCOUNTER → 2023-10-17 | Outpatient (CLI) | payer MEDICAID, SELFPAY ==
--- OUTSIDE RECORDS SUMMARY | 2023-10-17 06:59 | XMS RPT_ITS | CCD ---
Author Name Unknown Address [address] [place] [address] Organization [facility] Care Team Providers Care Lead Generation Marketing Manager Name Role Phone Claudia Jett Unavailable Unavailable Flor Rogers Unavailable Unavailable Sg Benzsa Unavailable Unavailable Rakel Kaur MD Primary Care Provider Alphonso, [place] S Unavailable Lorenzo Emmanuel MD Unavailable [phone] Yi Chacon Unavailable Unavailable Terri Kaur MD Primary Care Provider Alphonso, Norberto S Unavailable Lorenzo Emmanuel MD Unavailable Josseline Gillespie DO Primary Care Provider YI CHACON Attending Unavailable ELLIE, MOJGAN MCWILLIAMS Referring Unavaparker segovia ELLIE, MOJGAN MCWILLIAMS Attending Unavai lable UNKNOWN, PCP Referring Unavailable ELLIE, MOJGAN MCWILLIAMS Attending Linda Omalley, Dr. Neil Referring Unavailable Flores, Dr. Irwin Attending Unavailable ELLIE, ICU STAFF NURSE FLOR MCWILLIAMS Referring Unavai juliette Werner MD Norberto S Unavailable LORENZO EMMANUEL Attending Unavailable LUCIA MARIANO Referring Unavailable SHEETS JOSSELINE C Primary Care Unavailable SHEETS JOSSELINE C Attending Unavailable TERRI KAUR Primary Care Unavailable TASHIA JOSSELINE C Attending Unavailable TASHIA JOSSELINE C Primary Care Unavailable SHEETS, JOSSELINE C Primary Care Unavailable LUCIA MARIANO C Referring Unavailable SHEETS, JOSSELINE C Primary Care Unavailable TRILL, LUCIA C Referring Unavailable SHEETS, JOSSELINE C Primary Care Unavailable LUCIA MARIANO Attending Unavailable Allergies Allergy Classification Reported Allergen(s) Allergy Type Date of Onset Reaction(s) Facility (1 source) Hmg-Coa Reductase Inhibitors (Statins) drug allergy 12-26-2013 my[facility] Work Phone: (2 sources) pravastatin Drug Allergy 04-26-2012 [facility] Work Phone: (8 sources) predniSONE; Translations: [PREDNISONE] Drug Allergy 03-21-2023 Other: See Comments [facility] Work Phone: Medications Current Medications Medication Drug Class(es) Dates Sig (Normalized) Sig (Original) acetaminophen 500 mg oral tablet (18 sources) Start: 05-26-2018 Medication acetaminophen 500 mg tablet Mapap Extra Strength 500 mg 05/26/2018 Active (Outside) Completed/Discontinued Medications Medication Drug Class(es) Dates Sig (Normalized) Sig (Original) [id number] 200 actuat albuterol 0.09 mg/actuat metered dose inhaler (8 sources) beta2-Adrenergic Agonist Start: 06-28-2023 take 2 puff(s) by inhalation every four hours as needed for wheezing albuterol HFA (PROVENTIL HFA, VENTOLIN HFA) 90 mcg/actuation inhaler Indications: COPD with exacerbation (HCC) , Dyspnea, unspecified type Inhale 2 Puffs as instructed every 4 hours as needed for wheezing/shortness of breath. 18 g 2 06/28/2023 Active Problems Active Problems Problem Classification Problem Date Documented Da te Episodic/Chronic Chronic obstructive pulmonary disease and bronchiectasis (3 sources) Acute exacerbation of chronic obstructive airways disease; Translations: [Chronic obstructive pulmonary disease with (acute) exacerbation] Onset: 3 05-10-2023 Chronic Coronary atherosclerosis and other heart disease (8 sources) Angina pectoris; Translations: [Coronary atherosclerosis] Onset: 2 Resolved: 6 04-26-2012 Chronic Coronary atherosclerosis and other heart disease (1 source) Presence of coronary angioplasty implant and graft; Translations: [History of heart artery stent] Onset: 3 Episodic Disorders of lipid metabolism (1 source) Hyperlipidemia; Translations: [Hyperlipidemia, unspecified] Onset: 2 04-26-2012 Chronic Essential hypertension (1 source) Hypertensive disorder; Translations: [Essential (primary) hypertension] Onset: 2 04-26-2012 Chronic Gastrointestinal hemorrhage (3 sources) Rectal hemorrhage; Translations: [Hemorrhage of anus and rectum] Onset: 3 04-25-2023 Episodic Neoplasms of unspecified nature or uncertain behavior (20 sources) Neoplasm of uncertain behavior of skin; Translations: [Neoplasm of uncertain behavior of skin of forearm] Onset: 8 07-15-2023 Episodic Other and unspecified benign neoplasm (1 source) Lipoma of axilla; Translations: [Benign lipomatous neoplasm of skin and subcutaneous tissue of right arm] Episodic Other and unspecified benign neoplasm (1 source) Lipoma of right upper limb; Translations: [Benign lipomatous neoplasm of skin and subcutaneous tissue of right arm] Episodic Other and unspecified benign neoplasm (2 sources) Benign lipomatous neoplasm of skin and subcutaneous tissue of trunk Onset: 3 Episodic Other and unspecified benign neoplasm (1 source) Hemangioma of skin and subcutaneous tissue Onset: 3 Episodic Other lower respiratory disease (5 sources) Dyspnea; Translations: [Dyspnea, unspecified] Onset: 3 05-10-2013 Episodic Other lower respiratory disease (1 source) Cough; Translations: [Cough, unspecified type] 05-10-2023 Episodic Other lower respiratory disease (1 source) Wheezing; Translations: [Wheezing] 05-10-2023 Episodic Other lower respiratory disease (2 sources) Nodule of lung; Translations: [Solitary pulmonary nodule] 05-10-2023 Episodic Other lower respiratory disease (1 source) Shortness of breath; Translations: [SOB (shortness of breath)] Onset: 3 Episodic Other lower respiratory disease (1 source) Solitary pulmonary nodule; Translations: [Nodule of left lung] Onset: 3 Episodic Other non-epithelial cancer of skin (2 sources) Squamous cell carcinoma of skin of other parts of face Onset: 2 Episodic Other nutritional; endocrine; and metabolic disorders (13 sources) Obese class I; Translations: [Obesity, unspecified] Onset: 8 03-27-2018 Chronic Other skin disorders (20 sources) Actinic keratosis Onset: 8 Episodic Other skin disorders (18 sources) Inflamed seborrheic keratosis Onset: 9 Episodic Other skin disorders (12 sources) Other seborrheic keratosis Onset: 2 Episodic Other skin disorders (2 sources) Other melanin hyperpigmentation Onset: 3 Episodic Other skin disorders (1 source) Scar conditions and fibrosis of skin Onset: 3 Episodic Spondylosis; intervertebral disc disorders; other back problems (20 sources) Lumbar spondylosis; Translations: [Spondylosis without myelopathy or radiculopathy, lumbar region] Onset: 9 03-07-2019 Chronic Substance-related disorders (1 source) Tobacco dependence syndrome; Translations: [Nicotine dependence, unspecified, uncomplicated] Onset: 7 06-08-2017 Chronic Unclassified (2 sources) Body mass index (BMI) 30.0-30.9, adult; Translations: [Body mass index (BMI) 30.0-30.9, adult] Onset: 3 06-08-2017 Chronic Unclassified (3 sources) Long-term drug therapy; Translations: [Long-term (current) use of other medications] Onset: 4 Resolved: 5 11-23-2013 Unclassified (1 source) Cough, unspecified type; Translations: [Cough, unspecified type] Onset: 3 Past or Other Problems Problem Classification Problem Date Documented Date Episodic/Chronic Allergic reactions (2 sources) Contact dermatitis due to poison neva; Translations: [Allergic contact dermatitis due to plants, except food] Onset: 05-10-2023 05-10-2023 Episodic Cardiac dysrhythmias (1 source) Palpitations; Translations: [Palpitations] Onset: 05-11-2016 05-11-2016 Episodic Nonmalignant breast conditions (4 sources) Lump in right breast; Translations: [Unspecified lump in the right breast, unspecified quadrant] Onset: 02-09-2023 Episodic Nonspecific chest pain (1 source) Chest pain; Translations: [Other chest pain] Onset: 05-11-2016 05-11-2016 Episodic Other and unspecified benign neoplasm (1 source) Benign lipomatous neoplasm of skin and subcutaneous tissue of right arm; Translations: [Lipoma of right axilla] Onset: 02-09-2023 Episodic Other connective tissue disease (13 sources) Muscle weakness; Translations: [Muscle weakness (generalized)] Onset: 03-07-2019 03-07-2019 Episodic Other fractures (13 sources) Compression fracture of L2; Translations: [Wedge compression fracture of second lumbar vertebra, sequela] Onset: 11-16-2018 11-16-2018 Episodic Other lower respiratory disease (1 source) Wheezing; Translations: [Wheezing] Onset: 05-10-2023 Episodic Other lower respiratory disease (1 source) Dyspnea, unspecified; Translations: [Dyspnea, unspecified type] Onset: 05-10-2023 Episodic Other non-traumatic joint disorders (1 source) Pain in wrist; Translations: [Pain in unspecified wrist] Onset: 05-19-2017 05-19-2017 Episodic Other upper respiratory infections (2 sources) Viral upper respiratory tract infection; Translations: [Acute upper respiratory infection, unspecified] Onset: 05-10-2023 05-10-2023 Episodic Spondylosis; intervertebral disc disorders; other back problems (14 sources) Neck pain; Translations: [Acute low back pain] Onset: 05-19-2017 05-19-2017 Episodic Unclassified (2 sources) Cardiovascular stress test abnormal; Translations: [Encounter for screening mammogram for malignant neoplasm of breast] Onset: 05-19-2016 05-19-2016 Episodic Unclassified (3 sources) Body mass index (BMI) 29.0-29.9, adult; Translations: [Body mass index (BMI) 28.0-28.9, adult] Onset: 05-10-2013 Resolved: 05-11-2016 05-11-2016 Episodic Results Test Name Value Interpretation Reference Range Facil ity Vital Signs Date Time Vital Sign Value Performing Clinician Facility 07-15-2023 10:41-0500 Body height 161.3 cm [employer] DO Work Phone: [facility] 07-15-2023 10:41-0500 Body temperature 97.9 [degF] [employer] [facility] DO Work Phone: [facility] 07-15-2023 10:41-0500 Body weight 87.54 kg Josseline Sheets DO Work Phone: [facility] 07-15-2023 10:41-0500 Diastolic blood pressure 72 mm[Hg] Josseline Sheets DO Work Phone: [facility] 07-15-2023 10:41-0500 Heart rate 80 /min Josseline Sheets DO Work Phone: [facility] 07-15-2023 10:41-0500 Respiratory rate 16 /min Josseline Sheets DO Work Phone: [facility] 07-15-2023 10:41-0500 SaO2% (BldA) [Mass fraction] 98 % Josseline Sheets DO Work Phone: [facility] 07-15-2023 10:41-0500 Systolic blood pressure 116 mm[Hg] Josseline Sheets DO Work Phone: [facility] 05-10-2023 11:27-0400 Body height 161.3 cm Lucia Mariano SNAP SHEARER.ICU STAFF NURSE Work Phone: [facility] 05-10-2023 11:27-0400 Body temperature 98.1 [degF] Lucia Mariano SNAP SHEARER.ICU STAFF NURSE Work Phone: [facility] 05-10-2023 11:27-0400 Body weight 85.73 kg Lucia Mariano SNAP SHEARER.ICU STAFF NURSE Work Phone: [facility] 05-10-2023 11:27-0400 Diastolic blood pressure 76 mm[Hg] Lucia Mariano SNAP SHEARER.ICU STAFF NURSE Work Phone: [facility] 05-10-2023 11:27-0400 Heart rate 92 /min Lucia Trikurt SNAP SHEARER.ICU STAFF NURSE Work Phone: [facility] 05-10-2023 11:27-0400 SaO2% (BldA) [Mass fraction] 95 % Lucia Trikurt SNAP SHEARER.ICU STAFF NURSE Work Phone: [facility] 05-10-2023 11:27-0400 Systolic blood pressure 124 mm[Hg] Lucia Mariano APRN.CNP Work Phone: [facility] 04-29-2023 10:11-0400 Body height 161.3 cm Lorenzo Emmanuel MD Work Phone: [facility] 04-29-2023 10:11-0400 Body temperature 97.59 [degF] Lorenzo Emmanuel MD Work Phone: [facility] 04-29-2023 10:11-0400 Body weight 87.36 kg Lorenzo Emmanuel MD Work Phone: [facility] 04-29-2023 10:11-0400 Diastolic blood pressure 82 mm[Hg] Lorenzo Emmanuel MD Work Phone: [facility] 04-29-2023 10:11-0400 Heart rate 71 /min Lorenzo Emmanuel MD Work Phone: [facility] 04-29-2023 10:11-0400 SaO2% (BldA) [Mass fraction] 97 % Lorenzo Emmanuel MD Work Phone: [facility] 04-29-2023 10:11-0400 Systolic blood pressure 130 mm[Hg] Lorenzo Emmanuel MD Work Phone: [facility] 02-09-2023 11:08-0400 Body height 160 cm Josseline Sheets DO Work Phone: [facility] 02-09-2023 11:08-0400 Body temperature 98.29 [degF] Josseline Sheets DO Work Phone: [facility] 02-09-2023 11:08-0400 Body weight 87.36 kg Josseline Sheets DO Work Phone: [facility] 02-09-2023 11:08-0400 Diastolic blood pressure 76 mm[Hg] Josseline Sheets DO Work Phone: [facility] 02-09-2023 11:08-0400 Heart rate 66 /min Josseline Sheets DO Work Phone: [facility] 02-09-2023 11:08-0400 Respiratory rate 16 /min Josseline Sheets DO Work Phone: [facility] 02-09-2023 11:08-0400 SaO2% (BldA) [Mass fraction] 98 % Josseline Sheets DO Work Phone: [facility] 02-09-2023 11:08-0400 Systolic blood pressure 126 mm[Hg] Josseline Sheets DO Work Phone: [facility] 05-07-2022 09:01-0400 Diastolic blood pressure 87 mm[Hg] Yi Chacon [facility] 05-07-2022 09:01-0400 Systolic blood pressure 153 mm[Hg] Yi Chacon [facility] 07-19-2017 13:10-0500 BMI (Body Mass Index) 30.95 kg/m2 [facility] Work Phone: 07-19-2017 13:10-0500 BP Diastolic 88 mm[Hg] [facility] Work Phone: 07-19-2017 13:10-0500 BP Systolic 130 mm[Hg] [facility] Work Phone: 07-19-2017 13:10-0500 Height 165.1 cm [facility] Work Phone: 07-19-2017 13:10-0500 Pulse (Heart Rate) 80 /min [facility] Work Phone: 07-19-2017 13:10-0500 Respiratory Rate 20 /min [facility] Work Phone: 07-19-2017 13:10-0500 Weight 84.37 kg [facility] Work Phone: 05-11-2016 11:52-0400 BSA (Body Surface Area) 1.86 m2 [facility] Work Phone: 05-15-2015 09:49-0400 BP Diastolic 100 mm[Hg] [facility] Work Phone: 05-15-2015 09:49-0400 BP Systolic 160 mm[Hg] [facility] Work Phone: 1965 23:00-0500 >na< Flor Rogers Dept. of Dermato logy Encounters Encounter Date Encounter Type Care Provider Facility Start: 07-15-2023 End: 07-15-2023 ambulatory JOSSELINE C SHEETS Facility:[facility] Start: 07-15-2023 End: 07-15-2023 Patient encounter procedure Josseline C Sheets DO Work Phone: [facility] Procedures Date Procedure Procedure Detail Performing Clinician Start: 07-15-2023 History of placement of stent for coronary artery disease History of heart artery stent Josseline C Sheets DO Work Phone: Start: 02-17-2023 Mammography Josseline Sheets DO Work Phone: Start: 05-07-2022 Established Office Visit Level 3 Yi Chacon Start: 05-07-2022 Mohs micrographic h/n/h/f/g 1st stage 5 blocks Yi Chacon Start: 10-28-2020 Lipid 1996 panel - Serum or Plasma Lucia Mariano APRN.CNP Work Phone: Start: 06-25-2020 Adult depression screening assessment Joyce Stuart MD Work Phone: Start: 03-07-2020 Tangential biopsy skin single lesion Flor Rogers Start: 06-09-2019 Destruction benign lesions up to 14 Flor Rogers Start: 04-20-2019 Destruction premalignant lesion 1st Flor Rogers Start: 04-20-2019 Established Office Visit Level 3 Flor Rogers Start: 07-16-2018 Destruction premalignant lesion 1st Flor Rogers Start: 05-26-2018 Bx skin subcutaneous&/mucous membrane 1 lesion Flor Rogers Start: 04-05-2018 Mammography Joyce Stuart MD Work Phone: Start: 06-08-2017 End: 06-08-2017 PROFESSIONAL [employer] Jabari Knight Mary Grace EDITORIAL DIRECTOR Work Phone: Start: 06-08-2017 End: 06-08-2017 Follow Up Appt 6 months Jabari Antonia Mary Grace EDITORIAL DIRECTOR Work Phone: Start: 05-25-2017 End: 06-08-2017 *Hepatic Function Panel Jarad Reeder Start: 05-25-2017 End: 06-08-2017 Lipid 1996 panel - Serum or Plasma Norberto Werner MD Start: 11-19-2016 End: 11-22-2016 *Hepatic Function Panel Jarad Reeder Start: 11-19-2016 End: 11-19-2016 Follow Up Appt 6 months Jarad Reeder Start: 11-19-2016 End: 11-22-2016 Lipid 1996 panel - Serum or Plasma Norberto Werner MD Start: 11-19-2016 End: 11-19-2016 MMM Norberto Werner MD Start: 05-19-2016 End: 05-20-2016 *BMP Norberto Werner MD Start: 05-19-2016 End: 05-20-2016 CBC W Auto Differential panel - Blood Norberto Werner MD Start: 05-19-2016 End: 05-20-2016 Chest x-ray Norberto Werner MD Start: 05-19-2016 End: 05-28-2016 Left Heart Cath Frances Abraham RN Start: 05-11-2016 End: 05-11-2016 Ecg routine ecg w/least 12 lds w/i&r Norberto Werner MD Start: 05-11-2016 End: 05-11-2016 Follow Up Appt 6 months Jarad Reeder Start: 05-11-2016 End: 05-11-2016 RAFI Werner MD Start: 05-11-2016 End: 05-19-2016 Nuclear stress test -exercise Norberto Werner MD Start: 05-15-2015 End: 05-16-2015 Documentation of current medications Jennifer Leary PA-C Work Phone: Start: 05-15-2015 End: 05-15-2015 Follow up Appt 3 weeks Jennifer lubin PA-C Work Phone: Start: 05-15-2015 End: 05-15-2015 RAFI Leary PA-C Work Phone: Start: 05-15-2015 End: 05-16-2015 Smoking cessation education Jennifer Leary PA-C Work Phone: Start: 10-11-2014 Sandra Stuart MD Work Phone: Start: 09-03-2014 End: 06-08-2017 *Hepatic Function Panel Jarad Reeder Start: 09-03-2014 End: 09-03-2014 Ecg routine ecg w/least 12 lds w/i&r Norberto Werner MD Start: 09-03-2014 End: 09-03-2014 Follow Up Appt 6 months Jarad Reeder Start: 09-03-2014 End: 06-08-2017 Lipid 1996 panel - Serum or Plasma Norberto Werner MD Start: 09-03-2014 End: 09-03-2014 RAFI Werner MD Start: 09-03-2014 End: 09-09-2014 Stress Echocardiogram (treadmill) Norberto Werner MD Start: 04-29-2014 End: 02-26-2015 *Hepatic Function Panel Jennifer singh PA-C Work Phone: Start: 04-29-2014 End: 02-26-2015 Lipid 1996 panel - Serum or Plasma Jennifer Leary PA-C Work Phone: Start: 11-13-2013 End: 11-23-2013 *Hepatic Function Panel Jennifer singh PA-C Work Phone: Start: 11-13-2013 End: 11-13-2013 PROFESSIONAL [employer] Jennifer Leary PA-C Work Phone: Start: 11-13-2013 End: 11-13-2013 Follow Up Appt 6 months Jennifer singh PA-C Work Phone: Start: 11-13-2013 End: 11-23-2013 Lipid 1996 panel - Serum or Plasma Jennifer Leary PA-C Work Phone: Start: 05-10-2013 End: 11-13-2013 *Hepatic Function Panel Jarad Reeder Start: 05-10-2013 End: 05-10-2013 Follow Up Appt 6 months Jarad Reeder Start: 05-10-2013 End: 11-13-2013 Lipid 1996 panel - Serum or Plasma Norberto Werner MD Start: 05-10-2013 End: 05-10-2013 MMJarad Werner MD Start: 04-26-2012 End: 05-10-2013 Ecg routine ecg w/least 12 lds w/i&r Norberto Werner MD Start: 04-26-2012 End: 05-10-2013 Follow Up Appt 3 months Jarad Reeder Plan of Treatment Date Care Activity Detail Author Start: 03-27-2028 Urine microalbumin profile [facility] Start: 10-28-2025 Lipid 1996 panel - S arminda or Plasma Lipid Screening [facility] Start: 10-28-2025 LIPID SCREEN LIPID SCREEN [facility] Start: 10-11-2024 Colonoscopy COLONOSCOPY [facility] Start: 10-11-2024 COLORECTAL CANCER SCREENING COLORECTAL CANCER SCREENING [facility] Start: 07-15-2024 Annual PCP Team Drum Sealer gracy Disease Visit Annual PCP Team Chronic Disease Visit [facility] Start: 02-26-2024 Influenza vaccination Influenza Vacc ine (#1) [facility] Immunizations Immunization Date Immunization Notes Care Provider Fa cility 02-09-2023 zoster RZV vaccine, PF, (SHINGRIX) 50 mcg/0.5 mL injection Josseline Sheets DO Work Phone: [facility] Payers Date Payer Category Payer Medicaid [id number] 2015 Medicaid [id number] 1965 Unknown [id number] [id number] 1965 Unknown [id number] [id number]. [id number] 1965 Unknown [id number] [id number]. [id number] 1965 Unknown [id number] [id number]. [id number] Unknown [id number] Social History Date Type Detail Facility Start: 12-11-2021 Dept. of D ermatology Start: 1965 End: 1965 Sex Assigned At Female [facility] of [facility] gy Start: 12-02-2016 End: 07-15-2023 Tobacco smoking status NHIS Smokes tobacco daily [facility] Work Phone: History of tobacco use Cigarette Smoker C [facility] Work Phone: Start: 12-02-2016 End: 02-09-2023 Cigarettes smoked current (pack per day) - Reported 0.5 [facility] Work Phone: Start: 12-02-2016 End: 07-15-2023 Tobacco use and exposure Smokeless tobacco non-user [facility] Work Phone: Start: 06-25-2020 End: 07-15-2023 Alcohol intake Current drinker of alcohol (finding) [facility] Start: 06-25-2020 History SDOH Alcohol Comment weekly [facility] Start: 12-02-2016 End: 04-29-2023 Tobacco Comment used to smoke 1 pack [facility] Start: 1965 Sex Assigned At Not on file C [facility] Start: 02-09-2023 End: 07-15-2023 Tobacco use panel [facility] Work Phone: Adult Depression Screening Assessment 0 [facility] Work Phone: Goals Date Patient Goal Desired Activity /State Clinical Notes 10-03-2014 to 07-15-2023 Josseline Gilelspie DO - 07/15/2023 11:02 AM ESTTelephone Encounter - Enedina Avalos MA - 06/28/2023 8:23 AM EDTTelephone Encounter - Aretha Alicea - 06/02/2023 8:54 AM EDT Note Date & Type Note Facility 07-15-2023 Note HNO ID: [id number] Author: Josseline Gillespie DO Service: ? Author Type: Physician Type: Progress Notes Filed: 07/30/2023 7:42 AM Note Text: Subjective HPI Pt is here for hospital f/u She was in [facility] for coronary artery disease She is under the care of Dr. Werner, nitroglycerin neutralizer She continues to have shortness of breath, which may be due to brillinta, which is new for her She had 2 stents placed She has occasional chest pain in the morning when she wakes up She has appt to see Dr. Werner in the first week of August She has had a lesion of the right forearm that she has had all summer She has cut back on smoking and now smoking appx 1/3 PPD ALLERGIES Allergen Reactions Prednisone Other: See Comments Heart Racing Current Outpatient Medications Medication Sig Dispense Refill ticagrelor (BRILINTA) 90 mg tablet Take 90 mg by mouth two times a day. hydroCHLOROthiazide 25 mg tablet Take 25 mg by mouth once daily. albuterol HFA (PROVENTIL HFA, VENTOLIN HFA) 90 mcg/actuation inhaler Inhale 2 Puffs as instructed every 4 hours as needed for wheezing/shortness of breath. 18 g 2 omeprazole (PRILOSEC) 20 mg capsule Take 1 capsule by mouth every afternoon. budesonide-formoterol (SYMBICORT) 160-4.5 mcg/actuation inhaler Inhale 2 Puffs as instructed twice daily. 1 Each 2 calcium-cholecalciferol, D3, (OSCAL+D 250) 250-125 mg-unit per tablet Take 1 tablet by mouth twice daily. 60 tablet 1 ibuprofen (MOTRIN) 800 mg tablet Take 1 tablet by mouth every 8 hours as needed for Pain. 30 tablet 0 isosorbide mononitrate ER (IMDUR) 60 mg 24 hr tablet Take 60 mg by mouth once daily. 11 acetaminophen (TYLENOL) 500 mg tablet Take 2 tablets by mouth three times daily. 180 tablet 2 losartan (COZAAR) 100 mg tablet Take 100 mg by mouth once daily. metoprolol succinate ER (TOPROL XL) 50 mg 24 hr tablet Take 50 mg by mouth once daily. nitroglycerin sublingual (NITROQUICK) 0.4 mg SL tablet Dissolve 0.4 mg under the tongue every 5 minutes as needed. dilTIAZem LA (CARDIZEM LA) 240 mg 24 hr tablet Take 240 mg by mouth once daily. pravastatin (PRAVACHOL) 40 mg tablet Take 40 mg by mouth daily at bedtime. Aspirin 81 mg ORAL Tab Take 81 mg by mouth. ranolazine ER (RANEXA) 500 mg 12 hr tablet Take 1 tablet by mouth every 12 hours. (Patient not taking: Reported on 07/15/2023) predniSONE (DELTASONE) 10 mg tablet Take 4 tablets for 3 days, then 2 tablets for 3 days, then 1 tablet for 3 days, then stop (Patient not taking: Reported on 07/15/2023) 21 tablet 0 benzonatate (TESSALON PERLES) 100 mg capsule Take 1-2 capsules by mouth three times daily as needed. (Patient not taking: Reported on 07/15/2023) 45 capsule 0 Promethazine-DM (PHENERGAN-DM) 6.25-15 mg/5 mL syrup Take 5 mL by mouth at bedtime as needed for cough. (Patient not taking: Reported on 07/15/2023) 118 mL 0 topiramate (TOPAMAX) 25 mg tablet one tablet at bedtime for 7 days then increase to two tablets at bedtime thereafter. (Patient not taking: Reported on 07/15/2023) 60 tablet 2 hydroCHLOROthiazide (HYDRODIURIL, ESIDRIX) 12.5 mg tablet Take 25 mg by mouth once daily. (Patient not taking: Reported on 07/15/2023) 11 No current facility-administered medications for this visit. ACTIVE PROBLEM LIST Obesity, Class I, Bmi 30-34.9 Acute Midline Low Back Pain Without Sciatica Closed Compression Fracture of L2 Lumbar Vertebra, Sequela Lumbar Spondylosis Degeneration of Lumbar Intervertebral Disc Weakness of Trunk Musculature Social History Tobacco Use Smoking status: Every Day Packs/day: 0.25 Years: 35.00 Additional pack years: 0.00 Total pack years: 8.75 Types: Cigarettes Smokeless tobacco: Never Tobacco comments: used to smoke 1 pack Vaping Use Vaping Use: Never used Substance Use Topics Alcohol use: Yes Alcohol/week: 2.0 standard drinks of alcohol Types: 2 Cans of Beer (12oz) per week Comment: weekly Drug use: No Family History Problem Relation Age of Onset Cancer Brother 47 ?lung - Heart disease Mother Heart disease Father Cancer Maternal Grandmother chief of planning Reviewed past medical history, family history and surgeries. All medications and supplements were reviewed with the patient. Review of Systems Constitutional: Negative for chills, diaphoresis, fever, malaise/fatigue and weight loss. HENT: Negative for ear pain and hearing loss. Eyes: Negative for blurred vision and double vision. Respiratory: Positive for shortness of breath. Negative for cough. Cardiovascular: Positive for chest pain. Negative for palpitations and leg swelling. Gastrointestinal: Negative for constipation, diarrhea and heartburn. Genitourinary: Negative for dysuria and frequency. Musculoskeletal: Negative for back pain, falls, joint pain and myalgias. Skin: Negative for itching and rash. lesion Neurological: Negative for dizziness, weakness and headaches. Endo/Heme/Allergies: Does not brui (more content not included)... [facility] 11-17-2023 History of Presen t illness Narrative Subjective HPI Pt is here for hospital f/u She was in [facility] for coronary artery disease She is under the care of Dr. Werner, nitroglycerin neutralizer She continues to have shortness of breath, which may be due to brillinta, which is new for her She had 2 stents placed She has occasional chest pain in the morning when she wakes up She has appt to see Dr. Werner in the first week of August She has had a lesion of the right forearm that she has had all summer She has cut back on smoking and now smoking appx / PPD ALLERGIES Allergen Reactions Prednisone Other: See Comments Heart Racing Current Outpatient Medications Medication Sig Dispense Refill ticagrelor (BRILINTA) 90 mg tablet Take 90 mg by mouth two times a day. hydroCHLOROthiazide 25 mg tablet Take 25 mg by mouth once daily. albuterol HFA (PROVENTIL HFA, VENTOLIN HFA) 90 mcg/actuation inhaler Inhale 2 Puffs as instructed every 4 hours as needed for wheezing/shortness of breath. 18 g 2 omeprazole (PRILOSEC) 20 mg capsule Take 1 capsule by mouth every afternoon. budesonide-formoterol (SYMBICORT) 160-4.5 mcg/actuation inhaler Inhale 2 Puffs as instructed twice daily. 1 Each 2 calcium-cholecalciferol, D3, (OSCAL+D 250) 250-125 mg-unit per tablet Take 1 tablet by mouth twice daily. 60 tablet 1 ibuprofen (MOTRIN) 800 mg tablet Take 1 tablet by mouth every 8 hours as needed for Pain. 30 tablet 0 isosorbide mononitrate ER (IMDUR) 60 mg 24 hr tablet Take 60 mg by mouth once daily. 11 acetaminophen (TYLENOL) 500 mg tablet Take 2 tablets by mouth three times daily. 180 tablet 2 losartan (COZAAR) 100 mg tablet Take 100 mg by mouth once daily. metoprolol succinate ER (TOPROL XL) 50 mg 24 hr tablet Take 50 mg by mouth once daily. nitroglycerin sublingual (NITROQUICK) 0.4 mg SL tablet Dissolve 0.4 mg under the tongue every 5 minutes as needed. dilTIAZem LA (CARDIZEM LA) 240 mg 24 hr tablet Take 240 mg by mouth once daily. pravastatin (PRAVACHOL) 40 mg tablet Take 40 mg by mouth daily at bedtime. Aspirin 81 mg ORAL Tab Take 81 mg by mouth. ranolazine ER (RANEXA) 500 mg 12 hr tablet Take 1 tablet by mouth every 12 hours. (Patient not taking: Reported on 07/15/2023) predniSONE (DELTASONE) 10 mg tablet Take 4 tablets for 3 days, then 2 tablets for 3 days, then 1 tablet for 3 days, then stop (Patient not taking: Reported on 07/15/2023) 21 tablet 0 benzonatate (TESSALON PERLES) 100 mg capsule Take 1-2 capsules by mouth three times daily as needed. (Patient not taking: Reported on 07/15/2023) 45 capsule 0 Promethazine-DM (PHENERGAN-DM) 6.25-15 mg/5 mL syrup Take 5 mL by mouth at bedtime as needed for cough. (Patient not taking: Reported on 07/15/2023) 118 mL 0 topiramate (TOPAMAX) 25 mg tablet one tablet at bedtime for 7 days then increase to two tablets at bedtime thereafter. (Patient not taking: Reported on 07/15/2023) 60 tablet 2 hydroCHLOROthiazide (HYDRODIURIL, ESIDRIX) 12.5 mg tablet Take 25 mg by mouth once daily. (Patient not taking: Reported on 07/15/2023) 11 No current facility-administered medications for this visit. ACTIVE PROBLEM LIST Obesity, Class I, Bmi 30-34.9 Acute Midline Low Back Pain Without Sciatica Closed Compression Fracture of L2 Lumbar Vertebra, Sequela Lumbar Spondylosis Degeneration of Lumbar Intervertebral Disc Weakness of Trunk Musculature Social History Tobacco Use Smoking status: Every Day Packs/day: 0.25 Years: 35.00 Additional pack years: 0.00 Total pack years: 8.75 Types: Cigarettes Smokeless tobacco: Never Tobacco comments: used to smoke 1 pack Vaping Use Vaping Use: Never used Substance Use Topics Alcohol use: Yes Alcohol/week: 2.0 standard drinks of alcohol Types: 2 Cans of Beer (12oz) per week Comment: weekly Drug use: No Family History Problem Relation Age of Onset Cancer Brother 47 ?lung - Heart disease Mother Heart disease Father Cancer Maternal Grandmother chief of planning Reviewed past medical history, family history and surgeries. All medications and supplements were reviewed with the patient. Review of Systems Constitutional: Negative for chills, diaphoresis, fever, malaise/fatigue and weight loss. HENT: Negative for ear pain and hearing loss. Eyes: Negative for blurred vision and double vision. Respiratory: Positive for shortness of breath. Negative for cough. Cardiovascular: Positive for chest pain. Negative for palpitations and leg swelling. Gastrointestinal: Negative for constipation, diarrhea and heartburn. Genitourinary: Negative for dysuria and frequency. Musculoskeletal: Negative for back pain, falls, joint pain and myalgias. Skin: Negative for itching and rash. lesion Neurological: Negative for dizziness, weakness and headaches. Endo/Heme/Allergies: Does not bruise/bleed easily. Psychiatric/Behavioral: Negative for depression and substance abuse. The patient does not have insomnia. Objective BP 116/72 Pulse 80 Temp 36.6 C (97.9 F) Resp 16 Ht 161.3 cm (5' 3.5 ) Wt 87.5 kg (193 lb) LMP 08/29/2013 SpO2 98% BMI 33.65 kg/m Physical Exam Constitutional: Appearance: Normal appearance. She is obese. HENT: Head: Normocephalic and atraumatic. Nose: Nose normal. Mouth/Throat: Mouth: Mucous membranes are moist. Dentition: Normal dentition. Eyes: General: Lids are normal. Extraocular Movements: Extraocular movements intact. Conjunctiva/sclera: Conjunctivae normal. Pupils: Pupils are equal, round, and reactive to light. Neck: Thyroid: No thyroid mass or thyromegaly. Vascular: No carotid bruit. Trachea: Phonation normal. Cardiovascular: Rate and Rhythm: Normal rate and regular rhythm. Heart sounds: Normal heart sounds. No murmur heard. No friction rub. No gallop. Pulmonary: Effort: Pulmonary effort is normal. Breath sounds: Normal breath sounds. No wheezing or rales. Abdominal: General: Bowel sounds are normal. There is no distension. Palpations: Abdomen is soft. There is no mass. Tenderness: There is no abdominal tenderness. Musculoskeletal: General: No swelling or tenderness. Normal range of motion. Cervical back: Normal range of motion and neck supple. No edema. Lymphadenopathy: Cervical: No cervical adenopathy. Skin: General: Skin is warm and dry. Findings: Lesion (4 mm scabby lesion with irregular borders, round, no hyperpigmentation) present. No erythema or rash. Nails: There is no clubbing. Neurological: Mental Status: She is alert and oriented to person, place, and time. Cranial Nerves: No cranial nerve deficit. Motor: Motor function is intact. Coordination: Coordination normal. Gait: Gait is intact. Psychiatric: Attention and Perception: Attention normal. Mood and Affect: Mood and affect normal. Speech: Speech normal. Behavior: Behavior normal. Behavior is cooperative. Thought Content: Thought content normal. Cognition and Memory: Cognition and memory normal. Judgment: Judgment normal. ASSESSMENT/PLAN: 1. Coronary artery disease of [place] artery of [place] heart with stable angina pectoris (HCC) - ICD9: 414.01, 413.9, ICD10: I25.118 Pt is under the care of Dr. Werner, nitroglycerin neutralizer 2. SOB (shortness of breath) - ICD9: 786.05, ICD10: R06.02 (primary diagnosis) Possibly due to Brillinta, pt will discuss with nitroglycerin neutralizer 3. History of heart artery stent - ICD9: V45.82, ICD10: Z95.5 Started on Brillinta 4. Neoplasm of uncertain behavior of skin of forearm - ICD9: 238.2, ICD10: D48.5 - CONSULT TO DERMATOLOGY Josseline Gillespie DO documented in this encounter [facility] 06-28-2023 Miscellaneous Notes pharm requesting refills: Last office visit 05/10/23. Last refill 05/10/23 nov none Requested Prescriptions Pending Prescriptions Disp Refills albuterol HFA (PROVENTIL HFA, VENTOLIN HFA) 90 mcg/actuation inhaler [Pharmacy Med Name: albuterol sulfate HFA 90 mcg/actuation aerosol inhaler] 18 g 2 Sig: Inhale 2 Puffs as instructed every 4 hours as needed for wheezing/shortness of breath. Please review and advise. Enedina Avalos MA documented in this encounter [facility] 06-02-2023 Miscellaneous Notes Called patient to make an appointment for her. Patient stated that she received a letter from the [facility] that due to some of the results of recent testing that she should follow up with her PCP. Patient was told her results, so she is wondering if she is still suppose to follow up with Dr. Gillespie. Please advise. Aretha Alicea Patient lm on requesting apt. To go over test results. Please help assist with scheduling apt. Thanks. Enedina Avalos MA documented in this encounter [facility] 05-23-2023 Miscellaneous Notes Radiology Service Progress Note PATIENT NAME: Ananya Bowers DATE OF SERVICE: May 23, 2023 TIME: 10:43 AM PATIENT IDENTITY VERIFICATION COMPLETED USING TWO (2) IDENTIFIERS: Name and Date of confirmed by patient verbally. FALL SCREENING: Has the patient had 2 falls in the last year or 1 fall with injury or currently using an Ambulatory Assistive Device (Walker, Cane, Wheelchair, Crutches, etc.)? No PATIENT GENDER DATA: Female. status: : No status: NO. PATIENT RELEVANT IMPLANT DATA REVIEWED: Not Applicable RADIOLOGY DEPARTMENT: CT; Exam(s) Completed: Chest PERIPHERAL IV DATA: Not applicable SIGNED BY: RT Castro(R) May 23, 2023 10:43 AM documented in this encounter [facility] 05-11-2023 Miscellaneous Notes Patient notified and voiced understanding. Enedina Avalos MA ----- Message from Lucia Mariano APRN.ICU STAFF NURSE sent at 05/11/2023 8:30 AM EDT ----- COVID, Flu, RSV all negative. Lucia Mariano APRN.ICU STAFF NURSE documented in this encounter [facility] 05-11-2023 Miscellaneous Notes Patient notified and voiced understanding. Enedina Avalos MA Chest x-ray shows new nodule in left lung. Needs CT chest, see orders. Lucia Mariano APRN.ICU STAFF NURSE documented in this encounter [facility] 05-10-2023 Note HNO ID: [id number] Author: Lucia Mariano APRN.CNP Service: ? Author Type: Nurse Practitioner Type: Progress Notes Filed: 05/10/2023 10:05 PM Note Text: This note was created using [employer]. Subjective Ananya Bowers is a 57 year old female here today for cough. She is a patient of Dr Gillespie I reviewed past medical, surgical, social, and family histories today and updated chart. Allergies, chronic medications, and supplements were also reviewed. 2 days ago started having post nasal drip, runny nose, now its in her chest Coughing a lot hurting back and stomach No fevers but feels hot today She feels short of breath Taking robatussin and its not helping Diagnosed with COPD in the past, does not take medications, was told it may be an issue later in life Left upper eyelid swelling and redness started 2 days ago Poison neva rash to left arm She has an allergy to prednisone, she does not remember what reaction she had After chart review I found that heart racing with prednisone was reported to her nitroglycerin neutralizer. Breast cancer screening - Had mammogram in January Cervical cancer screening - Due for Pap, will postpone till later Colorectal cancer screening - Colonoscopy done a couple weeks ago PAST MEDICAL HISTORY Diagnosis Date Arrhythmia Back pain CAD (coronary artery disease) COPD (chronic obstructive pulmonary disease) (HCC) Headache Hyperlipidemia Knee pain Skin cancer Snoring SOB (shortness of breath) Unspecified essential hypertension PAST SURGICAL HISTORY Procedure Laterality Date COLONOSCOPY 10/11/2014 hyperplastic polyp, repeat in 10 yrs EGD 10/11/2014 H. pylori HYSTERECTOMY HX partial--ovaries remain LEFT HEART CATH,PERCUTANEOUS 2011 Cardiac cath, L heart - [facility] nitroglycerin neutralizer RIGHT HEART CATHETERIZATION 2011 Cardiac cath, R heart x2 RIGHT HEART CATHETERIZATION 04/2016 blockage in the back/bottom Dr. 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 calcium-cholecalciferol, D3, (OSCAL+D 250) 250-125 mg-unit per tablet Take 1 tablet by mouth twice daily. ibuprofen (MOTRIN) 800 mg tablet Take 1 tablet by mouth every 8 hours as needed for Pain. topiramate (TOPAMAX) 25 mg tablet one tablet at bedtime for 7 days then increase to two tablets at bedtime thereafter. (Patient taking differently: one tablet at bedtime) hydroCHLOROthiazide (HYDRODIURIL, ESIDRIX) 12.5 mg tablet Take 12.5 mg by mouth once daily. isosorbide mononitrate ER (IMDUR) 60 mg 24 hr tablet Take 60 mg by mouth once daily. acetaminophen (TYLENOL) 500 mg tablet Take 2 tablets by mouth three times daily. losartan (COZAAR) 100 mg tablet Take 100 mg by mouth once daily. metoprolol succinate ER (TOPROL XL) 50 mg 24 hr tablet Take 50 mg by mouth once daily. nitroglycerin sublingual (NITROQUICK) 0.4 mg SL tablet Dissolve 0.4 mg under the tongue every 5 minutes as needed. dilTIAZem LA (CARDIZEM LA) 240 mg 24 hr tablet Take 240 mg by mouth once daily. pravastatin (PRAVACHOL) 40 mg tablet Take 40 mg by mouth daily at bedtime. Aspirin 81 mg ORAL Tab Take 81 mg by mouth. predniSONE (DELTASONE) 20 mg tablet Take 2 tablets by mouth once daily. (Patient not taking: Reported on 05/10/2023) FAMILY HISTORY Problem Relation Age of Onset Cancer Brother 47 ?lung - Heart disease Mother Heart disease Father Cancer Maternal Grandmother chief of planning Social History Tobacco Use Smoking status: Every Day Packs/day: 0.50 Years: 35.00 Additional pack years: 0.00 Total pack years: 17.50 Types: Cigarettes Smokeless tobacco: Never Tobacco comments: used to smoke 1 pack Vaping Use Vaping Use: Never used Substance Use Topics Alcohol use: Yes Alcohol/week: 2.0 standard drinks of alcohol Types: 2 Cans of Beer (12oz) per week Comment: weekly Drug use: No Review of Systems Constitutional: Positive for fatigue. Negative for appetite change, chills, fever and unexpected weight change. HENT: Positive for congestion, postnasal drip and rhinorrhea. Negative for ear pain and sore throat. Eyes: Positive for pain. Negative for discharge, itching and visual disturbance. Respiratory: Positive for cough and shortness of breath. Negative for wheezing. Cardiovascular: Negative for chest pain, palpitations and leg swelling. Gastrointestinal: Negative for abdominal pain, constipation, diarrhea, nausea and vomiting. Genitourinary: Negative for difficulty urinating. Musculoskeletal: Negative for arthralgias. Skin: Positive for rash. Neurological: Negative for dizziness, tremors, weakness and headaches. Psychiatric/Behavioral: Negative for dysphoric mood and sleep disturbance. The patient is not (more content not included)... [facility] 05-10-2023 History of Presen t illness Narrative This note was created using [employer]. Subjective Ananya Bowers is a 57 year old female here today for cough. She is a patient of Dr Gillespie I reviewed past medical, surgical, social, and family histories today and updated chart. Allergies, chronic medications, and supplements were also reviewed. 2 days ago started having post nasal drip, runny nose, now its in her chest Coughing a lot hurting back and stomach No fevers but feels hot today She feels short of breath Taking robatussin and its not helping Diagnosed with COPD in the past, does not take medications, was told it may be an issue later in life Left upper eyelid swelling and redness started 2 days ago Poison neva rash to left arm She has an allergy to prednisone, she does not remember what reaction she had After chart review I found that heart racing with prednisone was reported to her nitroglycerin neutralizer. Breast cancer screening - Had mammogram in January Cervical cancer screening - Due for Pap, will postpone till later Colorectal cancer screening - Colonoscopy done a couple weeks ago PAST MEDICAL HISTORY Diagnosis Date Arrhythmia Back pain CAD (coronary artery disease) COPD (chronic obstructive pulmonary disease) (HCC) Headache Hyperlipidemia Knee pain Skin cancer Snoring SOB (shortness of breath) Unspecified essential hypertension PAST SURGICAL HISTORY Procedure Laterality Date COLONOSCOPY 10/11/2014 hyperplastic polyp, repeat in 10 yrs EGD 10/11/2014 H. pylori HYSTERECTOMY HX partial--ovaries remain LEFT HEART CATH,PERCUTANEOUS 2011 Cardiac cath, L heart - [facility] nitroglycerin neutralizer RIGHT HEART CATHETERIZATION 2011 Cardiac cath, R heart x2 RIGHT HEART CATHETERIZATION 04/2016 blockage in the back/bottom Dr. 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 calcium-cholecalciferol, D3, (OSCAL+D 250) 250-125 mg-unit per tablet Take 1 tablet by mouth twice daily. ibuprofen (MOTRIN) 800 mg tablet Take 1 tablet by mouth every 8 hours as needed for Pain. topiramate (TOPAMAX) 25 mg tablet one tablet at bedtime for 7 days then increase to two tablets at bedtime thereafter. (Patient taking differently: one tablet at bedtime) hydroCHLOROthiazide (HYDRODIURIL, ESIDRIX) 12.5 mg tablet Take 12.5 mg by mouth once daily. isosorbide mononitrate ER (IMDUR) 60 mg 24 hr tablet Take 60 mg by mouth once daily. acetaminophen (TYLENOL) 500 mg tablet Take 2 tablets by mouth three times daily. losartan (COZAAR) 100 mg tablet Take 100 mg by mouth once daily. metoprolol succinate ER (TOPROL XL) 50 mg 24 hr tablet Take 50 mg by mouth once daily. nitroglycerin sublingual (NITROQUICK) 0.4 mg SL tablet Dissolve 0.4 mg under the tongue every 5 minutes as needed. dilTIAZem LA (CARDIZEM LA) 240 mg 24 hr tablet Take 240 mg by mouth once daily. pravastatin (PRAVACHOL) 40 mg tablet Take 40 mg by mouth daily at bedtime. Aspirin 81 mg ORAL Tab Take 81 mg by mouth. predniSONE (DELTASONE) 20 mg tablet Take 2 tablets by mouth once daily. (Patient not taking: Reported on 05/10/2023) FAMILY HISTORY Problem Relation Age of Onset Cancer Brother 47 ?lung - Heart disease Mother Heart disease Father Cancer Maternal Grandmother chief of planning Social History Tobacco Use Smoking status: Every Day Packs/day: 0.50 Years: 35.00 Additional pack years: 0.00 Total pack years: 17.50 Types: Cigarettes Smokeless tobacco: Never Tobacco comments: used to smoke 1 pack Vaping Use Vaping Use: Never used Substance Use Topics Alcohol use: Yes Alcohol/week: 2.0 standard drinks of alcohol Types: 2 Cans of Beer (12oz) per week Comment: weekly Drug use: No Review of Systems Constitutional: Positive for fatigue. Negative for appetite change, chills, fever and unexpected weight change. HENT: Positive for congestion, postnasal drip and rhinorrhea. Negative for ear pain and sore throat. Eyes: Positive for pain. Negative for discharge, itching and visual disturbance. Respiratory: Positive for cough and shortness of breath. Negative for wheezing. Cardiovascular: Negative for chest pain, palpitations and leg swelling. Gastrointestinal: Negative for abdominal pain, constipation, diarrhea, nausea and vomiting. Genitourinary: Negative for difficulty urinating. Musculoskeletal: Negative for arthralgias. Skin: Positive for rash. Neurological: Negative for dizziness, tremors, weakness and headaches. Psychiatric/Behavioral: Negative for dysphoric mood and sleep disturbance. The patient is not nervous/anxious. Objective BP 124/76 Pulse 92 Temp 36.7 C (98.1 F) Ht 161.3 cm (5' 3.5 ) Wt 85.7 kg (189 lb) LMP 08/29/2013 SpO2 95% BMI 32.95 kg/m Physical Exam Constitutional: General: She is not in acute distress. Appearance: She is well-developed. She is ill-appearing. She is not toxic-appearing. HENT: Head: Normocephalic and atraumatic. Right Ear: Hearing, tympanic membrane, ear canal and external ear normal. No drainage. Tympanic membrane is not injected or bulging. Left Ear: Hearing, tympanic membrane, ear canal and external ear normal. No drainage. Tympanic membrane is not injected or bulging. Nose: Congestion present. No mucosal edema or rhinorrhea. Mouth/Throat: Lips: [place]. Mouth: Mucous membranes are moist. No oral lesions. Pharynx: Oropharynx is clear. Uvula midline. No oropharyngeal exudate or posterior oropharyngeal erythema. Eyes: General: Lids are normal. Right eye: No discharge. Left eye: No discharge. Conjunctiva/sclera: Conjunctivae normal. Pupils: Pupils are equal, round, and reactive to light. Cardiovascular: Rate and Rhythm: Normal rate and regular rhythm. Heart sounds: Normal heart sounds. No murmur heard. Pulmonary: Effort: Pulmonary effort is normal. Tachypnea present. No respiratory distress. Breath sounds: Decreased air movement present. Wheezing, rhonchi and rales present. Comments: Frequent productive cough Musculoskeletal: Cervical back: Normal range of motion and neck supple. Lymphadenopathy: Head: Right side of head: No tonsillar, preauricular or posterior auricular adenopathy. Left side of head: No tonsillar, preauricular or posterior auricular adenopathy. Cervical: No cervical adenopathy. Upper Body: Right upper body: No supraclavicular adenopathy. Left upper body: No supraclavicular adenopathy. Skin: General: Skin is warm and dry. Findings: No bruising or rash. Neurological: General: No focal deficit present. Mental Status: She is alert and oriented to person, place, and time. Cranial Nerves: No cranial nerve deficit. Psychiatric: Mood and Affect: Mood and affect normal. Speech: Speech normal. Behavior: Behavior normal. Behavior is cooperative. ASSESSMENT/PLAN: 1. COPD with exacerbation (HCC) - ICD9: 491.21, ICD10: J44.1 (primary diagnosis) Start Symbicort 2 puffs BID Start albuterol 2 puffs every 4 hours as needed SOB/wheezing Prednisone taper 40-20-10 x 9 days. We discussed risk for heart racing and I told her she may reduce the dose or stop the medication if she experiences heart racing - ALBUTEROL SULFATE HFA 90 MCG/ACTUATION AEROSOL INHALER - BUDESONIDE-FORMOTEROL HFA 160 MCG-4.5 MCG/ACTUATION AEROSOL INHALER - PREDNISONE 10 MG TABLET - AMOXICILLIN 875 MG-POTASSIUM CLAVULANATE 125 MG TABLET 2. Upper respiratory virus - ICD9: 465.9, ICD10: J06.9 - Symptomatic treatment with prn analgesia - Supportive care with fluids and rest - COVID & INFLUENZA A/B & RSV NAAT, ROUTINE - COVID NAAT, ROUTINE - ROUTINE FLU A/B + RSV 3. Cough, unspecified type - ICD9: 786.2, ICD10: R05.9 Concern for pneumonia, CXR ordered Start Augmentin Tessalon perles, promethazine/DM cough syrup orn - COVID & INFLUENZA A/B & RSV NAAT, ROUTINE - COVID NAAT, ROUTINE - ROUTINE FLU A/B + RSV - XR CHEST 2V FRONTAL/LAT - BENZONATATE 100 MG CAPSULE - PROMETHAZINE-DM 6.25 MG-15 MG/5 ML ORAL SYRUP 4. Poison neva dermatitis - ICD9: 692.6, ICD10: L23.7 - Oral Steriod tx -Prednisone taper - discussed skin care of rash - follow up if symptoms persist or worsen. 5. Wheezing - ICD9: 786.07, ICD10: R06.2 Duoneb aerosol x 1 given today in office - XR CHEST 2V FRONTAL/LAT - IPRATROPIUM 0.5 MG-ALBUTEROL 3 MG (2.5 MG BASE)/3 ML NEBULIZATION SOLN 6. Dyspnea, unspecified type - ICD9: 786.09, ICD10: R06.00 - XR CHEST 2V FRONTAL/LAT - ALBUTEROL SULFATE HFA 90 MCG/ACTUATION AEROSOL INHALER - BUDESONIDE-FORMOTEROL HFA 160 MCG-4.5 MCG/ACTUATION AEROSOL INHALER - PREDNISONE 10 MG TABLET - IPRATROPIUM 0.5 MG-ALBUTEROL 3 MG (2.5 MG BASE)/3 ML NEBULIZATION SOLN FU 2-3 weeks Lucia Mariano APRN.ICU STAFF NURSE documented in this encounter [facility] 05-01-2023 Note HNO ID: [id number] Author: Lorenzo Emmanuel MD Service: ? Author Type: Physician Type: Progress Notes Filed: 05/01/2023 9:07 AM Note Text: HISTORY AND PHYSICAL Ananya Bowers 1965 REFERRING PHYSICIAN: Lucia Mariano APRN.* CHIEF COMPLAINT: Consult (Evaluation for diarrhea, bloody stools, blood clots and menstrual-like abdominal cramps. ) HPI: The patient is a 57 year old female referred for rectal bleeding. The patient noted that she had diarrhea and after multiple diarrheal episodes she noted rectal bleeding where she passed 5-6 clots. She noted lower abdominal cramping with the diarrhea. Since that time she had normal bowel movements and has had no rectal bleeding. The patient has an uncle who has colon cancer she has no first-degree relatives with colon cancer. The patient no current upper GI complaints Ananya has undergone prior endoscopy. I performed upper and lower endoscopy on January 08, 2015. She was found to have H. pylori gastritis which was treated appropriately and hyperplastic polyp. We recommend follow-up colonoscopy in 2024. The patient is being seen by me today at the request of Lucia Mariano APRN.* my opinion and advice regarding 1 episode of rectal bleeding following diarrhea. PAST MEDICAL HISTORY Diagnosis Date Arrhythmia Back pain CAD (coronary artery disease) COPD (chronic obstructive pulmonary disease) (HCC) Headache Hyperlipidemia Knee pain Skin cancer Snoring SOB (shortness of breath) Unspecified essential hypertension PAST SURGICAL HISTORY Procedure Laterality Date COLONOSCOPY 10/11/2014 hyperplastic polyp, repeat in 10 yrs EGD 10/11/2014 H. pylori HYSTERECTOMY HX partial--ovaries remain LEFT HEART CATH,PERCUTANEOUS 2011 Cardiac cath, L heart - [facility] nitroglycerin neutralizer RIGHT HEART CATHETERIZATION 2011 Cardiac cath, R heart x2 RIGHT HEART CATHETERIZATION 04/2016 blockage in the back/bottom Dr. Steinberg SKIN BX, 1 LESION 06/2019 right cheek/unsure if was basal or squamos cell CA SURGERY 2021 cancer removed from right side of face TONSILLECTOMY PRIMARY/SECONDARY Tonsillectomy Current Outpatient Medications Medication Sig calcium-cholecalciferol, D3, (OSCAL+D 250) 250-125 mg-unit per tablet Take 1 tablet by mouth twice daily. ibuprofen (MOTRIN) 800 mg tablet Take 1 tablet by mouth every 8 hours as needed for Pain. topiramate (TOPAMAX) 25 mg tablet one tablet at bedtime for 7 days then increase to two tablets at bedtime thereafter. (Patient taking differently: one tablet at bedtime) hydroCHLOROthiazide (HYDRODIURIL, ESIDRIX) 12.5 mg tablet Take 12.5 mg by mouth once daily. isosorbide mononitrate ER (IMDUR) 60 mg 24 hr tablet Take 60 mg by mouth once daily. acetaminophen (TYLENOL) 500 mg tablet Take 2 tablets by mouth three times daily. losartan (COZAAR) 100 mg tablet Take 100 mg by mouth once daily. metoprolol succinate ER (TOPROL XL) 50 mg 24 hr tablet Take 50 mg by mouth once daily. nitroglycerin sublingual (NITROQUICK) 0.4 mg SL tablet Dissolve 0.4 mg under the tongue every 5 minutes as needed. dilTIAZem LA (CARDIZEM LA) 240 mg 24 hr tablet Take 240 mg by mouth once daily. pravastatin (PRAVACHOL) 40 mg tablet Take 40 mg by mouth daily at bedtime. Aspirin 81 mg ORAL Tab Take 81 mg by mouth. predniSONE (DELTASONE) 20 mg tablet Take 2 tablets by mouth once daily. (Patient not taking: Reported on 04/29/2023) No current facility-administered medications for this visit. ALLERGIES: Patient has no known allergies. PERSONAL HISTORY: Social History Tobacco Use Smoking status: Every Day Packs/day: 0.50 Years: 35.00 Additional pack years: 0.00 Total pack years: 17.50 Types: Cigarettes Smokeless tobacco: Never Tobacco comments: used to smoke 1 pack Vaping Use Vaping Use: Never used Substance Use Topics Alcohol use: Yes Alcohol/week: 2.0 standard drinks of alcohol Types: 2 Cans of Beer (12oz) per week Comment: weekly Drug use: No FAMILY HISTORY: FAMILY HISTORY Problem Relation Age of Onset Cancer Brother 47 ?lung - Heart disease Mother Heart disease Father Cancer Maternal Grandmother chief of planning REVIEW OF SYMPTOMS: The review of systems data was entered by the nurse and reviewed by il Nursing Notes: Haley Mcarthur RN 04/29/2023 10:22 AM Signed REVIEW OF SYSTEMS: General: The patient denies fatigue, denies weight loss, denies weight gain, denies feeling hot, and denies feelings of cold. Eyes: The patient denies glaucoma, denies eye injury/surgery, wears glasses or contacts. Ear/Nose/Throat: The patient denies allergies, denies hayfever, denies ear infections, and denies bloody noses. Cardiovascular: The patient denies chest pain, NOTES heart disease, NOTES high blood pressure,denies cardiac stent, denies prior heart attack, NOTES irregular heart beat, NOTES high cholesterol, denies poor circulation, denies heart failure, other card (more content not included)... [facility] 05-01-2023 History of Presen t illness Narrative HISTORY AND PHYSICAL Ananya Bowers 1965 REFERRING PHYSICIAN: Lucia Mariano APRN.* CHIEF COMPLAINT: Consult (Evaluation for diarrhea, bloody stools, blood clots and menstrual-like abdominal cramps. ) HPI: The patient is a 57 year old female referred for rectal bleeding. The patient noted that she had diarrhea and after multiple diarrheal episodes she noted rectal bleeding where she passed 5-6 clots. She noted lower abdominal cramping with the diarrhea. Since that time she had normal bowel movements and has had no rectal bleeding. The patient has an uncle who has colon cancer she has no first-degree relatives with colon cancer. The patient no current upper GI complaints Ananya has undergone prior endoscopy. I performed upper and lower endoscopy on January 08, 2015. She was found to have H. pylori gastritis which was treated appropriately and hyperplastic polyp. We recommend follow-up colonoscopy in 2024. The patient is being seen by me today at the request of Lucia Mariano APRN.* my opinion and advice regarding 1 episode of rectal bleeding following diarrhea. PAST MEDICAL HISTORY Diagnosis Date Arrhythmia Back pain CAD (coronary artery disease) COPD (chronic obstructive pulmonary disease) (HCC) Headache Hyperlipidemia Knee pain Skin cancer Snoring SOB (shortness of breath) Unspecified essential hypertension PAST SURGICAL HISTORY Procedure Laterality Date COLONOSCOPY 10/11/2014 hyperplastic polyp, repeat in 10 yrs EGD 10/11/2014 H. pylori HYSTERECTOMY HX partial--ovaries remain LEFT HEART CATH,PERCUTANEOUS 2011 Cardiac cath, L heart - [facility] nitroglycerin neutralizer RIGHT HEART CATHETERIZATION 2011 Cardiac cath, R heart x2 RIGHT HEART CATHETERIZATION 04/2016 blockage in the back/bottom Dr. 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 ibuprofen (MOTRIN) 800 mg tablet Take 1 tablet by mouth every 8 hours as needed for Pain. topiramate (TOPAMAX) 25 mg tablet one tablet at bedtime for 7 days then increase to two tablets at bedtime thereafter. (Patient taking differently: one tablet at bedtime) hydroCHLOROthiazide (HYDRODIURIL, ESIDRIX) 12.5 mg tablet Take 12.5 mg by mouth once daily. isosorbide mononitrate ER (IMDUR) 60 mg 24 hr tablet Take 60 mg by mouth once daily. acetaminophen (TYLENOL) 500 mg tablet Take 2 tablets by mouth three times daily. losartan (COZAAR) 100 mg tablet Take 100 mg by mouth once daily. metoprolol succinate ER (TOPROL XL) 50 mg 24 hr tablet Take 50 mg by mouth once daily. nitroglycerin sublingual (NITROQUICK) 0.4 mg SL tablet Dissolve 0.4 mg under the tongue every 5 minutes as needed. dilTIAZem LA (CARDIZEM LA) 240 mg 24 hr tablet Take 240 mg by mouth once daily. pravastatin (PRAVACHOL) 40 mg tablet Take 40 mg by mouth daily at bedtime. Aspirin 81 mg ORAL Tab Take 81 mg by mouth. predniSONE (DELTASONE) 20 mg tablet Take 2 tablets by mouth once daily. (Patient not taking: Reported on 04/29/2023) No current facility-administered medications for this visit. ALLERGIES: Patient has no known allergies. PERSONAL HISTORY: Social History Tobacco Use Smoking status: Every Day Packs/day: 0.50 Years: 35.00 Additional pack years: 0.00 Total pack years: 17.50 Types: Cigarettes Smokeless tobacco: Never Tobacco comments: used to smoke 1 pack Vaping Use Vaping Use: Never used Substance Use Topics Alcohol use: Yes Alcohol/week: 2.0 standard drinks of alcohol Types: 2 Cans of Beer (12oz) per week Comment: weekly Drug use: No FAMILY HISTORY: FAMILY HISTORY Problem Relation Age of Onset Cancer Brother 47 ?lung - Heart disease Mother Heart disease Father Cancer Maternal Grandmother chief of planning REVIEW OF SYMPTOMS: The review of systems data was entered by the nurse and reviewed by il Nursing Notes: Haley Mcarthur RN 04/29/2023 10:22 AM Signed REVIEW OF SYSTEMS: General: The patient denies fatigue, denies weight loss, denies weight gain, denies feeling hot, and denies feelings of cold. Eyes: The patient denies glaucoma, denies eye injury/surgery, wears glasses or contacts. Ear/Nose/Throat: The patient denies allergies, denies hayfever, denies ear infections, and denies bloody noses. Cardiovascular: The patient denies chest pain, NOTES heart disease, NOTES high blood pressure,denies cardiac stent, denies prior heart attack, NOTES irregular heart beat, NOTES high cholesterol, denies poor circulation, denies heart failure, other cardiac issues, denies claudication, denies cold feet, denies peripheral arterial stent. Respiratory: The patient denies tuberculosis, denies pneumonia, denies frequent cough, denies pulmonary embolism, NOTES shortness of breath, denies coughing up blood and NOTES COPD. Gastrointestinal: The patient denies difficulty swallowing, denies acid reflux, denies ulcers, denies vomiting, denies jaundice/hepatitis, denies gallbladder problems, denies black or tarry stools, denies hemorrhoids, NOTES bleeding from rectum, denies diverticulitis, denies constipation, NOTES diarrhea, denies loss of stool control, and denies hernias. Kidney/Bladder: The patient denies kidney stones, denies urine infections, and denies bloody urine. Skin: The patient NOTES a history of skin cancer, denies bleeding/changing moles, and denies a history of skin rash. Neurologic: The patient denies a history of epilepsy/convulsions, NOTES headaches, denies head/spinal injuries, and denies stroke/TIA. Psychiatric: The patient denies psychiatric medications, denies depression, and denies voices, denies substance abuse. Endocrine: The patient denies thyroid disorders, denies diabetes, and denies hormonal problems. Hematologic: The patient denies a history of bruising, denies bleeding, and denies anemia, denies blood clots. Infections: The patient denies a history of measles and mumps, denies rheumatic fever, and denies sexually transmitted diseases. Musculoskeletal: The patient NOTES back pain/injury, NOTES back problems, denies sciatica, NOTES knee/foot trouble, denies arthritis, or denies gout. When was patient's last Mammogram screening? 02/17/2023 Last Colonoscopy: 10/03/2014 Haley Mcarthur RN PHYSICAL EXAMINATION: General: The patient is 57 year old female, well nourished, well hydrated in no acute distress. The patient is oriented to time, place, and person. VITALS: Blood pressure 130/82, pulse 71, temperature 36.4 C (97.6 F), height 161.3 cm (5' 3.5 ), weight 87.4 kg (192 lb 9.6 oz), last menstrual period 08/29/2013, SpO2 97 %. Body mass index is 33.58 kg/m . HEENT: Normal cephalic, ataumatic, pupils are equally round, sclera are anicteric, mucous membranes are moist, oropharynx is clear. Neck has no masses, asymmetry or lymphadenopathy. Thyroid is unremarkable. Respiratory: Clear to auscultation and percussion. Normal respiratory excursion and pattern. Cardiac: Examination is regular rate and rhythm. Abdominal exam: Soft, nontender, with no palpable masses. No hepatosplenomegaly. No palpable hernias. Rectal exam: Normal external anatomy, no significant hemorrhoids or masses. Digital rectal exam - normal tone, no masses or other abnormalities Extremities: no clubbing, cyanosis or edema. No adenopathy. Other: LABORATORY VALUES: As Noted RADIOLOGIC STUDIES: As Noted Assessment IMPRESSION: 1 episode of rectal bleeding following diarrhea PLAN: If the patient notes additional episodes of rectal bleeding she should contact me immediately at which point in time to set her up for endoscopy in the near future. Otherwise, in 2 years I plan to perform lower endoscopy. We discussed the risks and benefits of the planned endoscopy. I have informed the patient that complications can occur including failure to complete the endoscopy and perforation. The patient had the opportunity to ask questions concerning the planned endoscopy. My staff has also explained the procedure to the patient in understandable terms and has given the patient printed material concerning the procedure. The patient freely consents to surgery. Diagnoses: (K62.5) Rectal bleeding My findings have been communicated to Lucia Mariano via shared medical record. This note will be forwarded to Josseline Gillespie DO. Return to Clinic: The patient is instructed to follow-up with me as needed. Lorenzo Emmanuel MD documented in this encounter [facility] 04-29-2023 Miscellaneous Notes No Show Documentation Ananya Bowers no showed for an appointment on 04/29/23 with Leandra Wright APRN.CNP at 4:00 pm. She was scheduled for diarrhea/bloody stools. I called and spoke with the patient regarding her missed appointment. Ananya stated the reason that she missed her appointment was because scheduling error/conflict . She stated that she did not confirm her appointment. She went to see a specialist this am in [place]. Resources discussed/offered to patient: next appointment with Lucia Mariano CNP-confirmed for 05/10/23. No show determined to be fault of patient: N/A This is the patients first no show in the last 12 months. Patient was rescheduled for the patient already had a scheduled appointment for 05/10/23. Letter mailed : N/A Is this the Third or Fourth No Show ? Breanna Frias April 29, 2023 4:24 PM documented in this encounter [facility] 04-29-2023 Nurse Note REVIEW OF SYSTEMS: General: The patient denies fatigue, denies weight loss, denies weight gain, denies feeling hot, and denies feelings of cold. Eyes: The patient denies glaucoma, denies eye injury/surgery, wears glasses or contacts. Ear/Nose/Throat: The patient denies allergies, denies hayfever, denies ear infections, and denies bloody noses. Cardiovascular: The patient denies chest pain, NOTES heart disease, NOTES high blood pressure,denies cardiac stent, denies prior heart attack, NOTES irregular heart beat, NOTES high cholesterol, denies poor circulation, denies heart failure, other cardiac issues, denies claudication, denies cold feet, denies peripheral arterial stent. Respiratory: The patient denies tuberculosis, denies pneumonia, denies frequent cough, denies pulmonary embolism, NOTES shortness of breath, denies coughing up blood and NOTES COPD. Gastrointestinal: The patient denies difficulty swallowing, denies acid reflux, denies ulcers, denies vomiting, denies jaundice/hepatitis, denies gallbladder problems, denies black or tarry stools, denies hemorrhoids, NOTES bleeding from rectum, denies diverticulitis, denies constipation, NOTES diarrhea, denies loss of stool control, and denies hernias. Kidney/Bladder: The patient denies kidney stones, denies urine infections, and denies bloody urine. Skin: The patient NOTES a history of skin cancer, denies bleeding/changing moles, and denies a history of skin rash. Neurologic: The patient denies a history of epilepsy/convulsions, NOTES headaches, denies head/spinal injuries, and denies stroke/TIA. Psychiatric: The patient denies psychiatric medications, denies depression, and denies voices, denies substance abuse. Endocrine: The patient denies thyroid disorders, denies diabetes, and denies hormonal problems. Hematologic: The patient denies a history of bruising, denies bleeding, and denies anemia, denies blood clots. Infections: The patient denies a history of measles and mumps, denies rheumatic fever, and denies sexually transmitted diseases. Musculoskeletal: The patient NOTES back pain/injury, NOTES back problems, denies sciatica, NOTES knee/foot trouble, denies arthritis, or denies gout. When was patient's last Mammogram screening? 02/17/2023 Last Colonoscopy: 10/03/2014 Haley Mcarthur RN documented in this encounter [facility] 04-26-2023 Miscellaneous Notes Patient informed of referral information and recommendations. Transferred patient to schedule appointment. Edelmira Mayer MA Patient needs to have a colonoscopy again, Dr. Emmanuel is still practicing in [place] and [place]. I've placed a referral for her to see him. She can call [phone] to schedule If she is experiencing abdominal pain that is worsening, fever, dizziness, or shortness of breath she should go to the ER. She needs to to come in for appointment so we can assess need for blood work/scans. Lucia Spoke with patient and she states that she started having diarrhea last Tuesday and again on Tuesday and then on Tuesday she woke up early in the morning with stomach pains and then around 9 am she thought she had to go to the bathroom but when she wiped it was just blood and that happened 5-6 times that day and it was just blood and blood clots. States Tuesday morning it was just blood clots again and she like she had menstrual cramps all weekend. States she has not had any blood since Tuesday is just cramping still. Last colonoscopy was 10/11/[address] Emmanuel in [place]. Please advise. Edelmira Mayer MA ----- Message from Aretha Alicea sent at 04/25/2023 11:09 AM EDT ----- Regarding: FW: Medicine /Sheets,Josseline/ diarrhea and bloody stools ----- Message ----- From: Tasha Goel Sent: 04/25/2023 11:07 AM EDT To: [facility] Triage Pool Subject: Medicine /Sheets,Josseline/ diarrhea and bloo# Patient has been identified by name and Date of (Y/N): y Patient: Ananya Bowers Date of : 1965 Provider for this encounter: Josseline Gillespie DO Reason for the call/escalation: diarrhea and bloody stools Was Patient Referred to [facility]/Seek Emergency Treatment (Y/N): no Did Patient Agree (Y/N): n/a Was An Attempt Made To Transfer The Patient To The Office (Y/N): no Were You Able To Reach Someone At The Office (Y/N): n/a If Yes - Patient Was Transferred To (Caregivers Name): n/a If No - Which [facility] Leadership Lead Generation Marketing Manager Did You Speak With Regarding This Patient: n/a Was an appointment scheduled (Y/N): no-unable to schedule based on 4cq Reason patient was requesting visit (RFV/signs and symptoms/diagnosis) : diarrhea and bloody stools Person calling if other than patient: n/a Return call to if other than patient: n/a Best contact number: [phone] Thank you, Tasha Goel April 25, 2023 11:05 AM documented in this encounter [facility] 03-02-2023 Miscellaneous Notes Patient notified. Enedina Avalos MA Please notify pt her mammogram and US of the breast was normal Josseline Gillespie DO Received patient's diagnostic mammogram and ultrasound results from [facility] that were ordered by Dr. Gillespie, placed in green folder to review. Please advise. Edelmira Mayer MA documented in this encounter [facility] 02-09-2023 Note HNO ID: [id number] Author: Josseline Gillespie DO Service: ? Author Type: Physician Type: Progress Notes Filed: 02/23/2023 10:02 PM Note Text: Subjective HPI Pt is here for an acute visit for a lump in the right underarm and on the right shoulder It is painful when she lies on her right and her right arm goes numb when she is lying on it She denies any breast masses, breast tenderness, changes in skin on the breasts Her last mammo 04/05/18 Review of Systems Constitutional: Negative for chills, diaphoresis, fever, malaise/fatigue and weight loss. HENT: Negative for ear pain and hearing loss. Eyes: Negative for blurred vision and double vision. Respiratory: Negative for cough and shortness of breath. Cardiovascular: Negative for chest pain, palpitations and leg swelling. Gastrointestinal: Negative for constipation, diarrhea and heartburn. Genitourinary: Negative for dysuria and frequency. Musculoskeletal: Negative for back pain, falls, joint pain and myalgias. Lipoma of right posterior shoulder and right underarm Skin: Negative for itching and rash. Neurological: Negative for dizziness, weakness and headaches. Endo/Heme/Allergies: Does not bruise/bleed easily. Psychiatric/Behavioral: Negative for depression and substance abuse. The patient does not have insomnia. Objective BP 126/76 Pulse 66 Temp 36.8 ?C (98.3 ?F) Resp 16 Ht 160 cm (5' 3 ) Wt 87.4 kg (192 lb 9.6 oz) LMP 08/29/2013 SpO2 98% BMI 34.12 kg/m? Physical Exam Constitutional: Appearance: Normal appearance. HENT: Head: Normocephalic and atraumatic. Nose: Nose normal. Mouth/Throat: Mouth: Mucous membranes are moist. Dentition: Normal dentition. Eyes: General: Lids are normal. Extraocular Movements: Extraocular movements intact. Conjunctiva/sclera: Conjunctivae normal. Pupils: Pupils are equal, round, and reactive to light. Neck: Thyroid: No thyroid mass or thyromegaly. Vascular: No carotid bruit. Trachea: Phonation normal. Cardiovascular: Rate and Rhythm: Normal rate and regular rhythm. Heart sounds: Normal heart sounds. No murmur heard. No friction rub. No gallop. Pulmonary: Effort: Pulmonary effort is normal. Breath sounds: Normal breath sounds. No wheezing or rales. Abdominal: General: Bowel sounds are normal. There is no distension. Palpations: Abdomen is soft. There is no mass. Tenderness: There is no abdominal tenderness. Musculoskeletal: General: Deformity (Lipoma right posterior shoulder, lipoma of right axilla) present. No swelling or tenderness. Normal range of motion. Cervical back: Normal range of motion and neck supple. No edema. Comments: 1 cm Mass in center of right axilla Lymphadenopathy: Cervical: No cervical adenopathy. Skin: General: Skin is warm and dry. Findings: No erythema or rash. Nails: There is no clubbing. Comments: 2 mm mass right breast at 3:00, 2 mm mass of left breast at 9:00, both masses tender Neurological: Mental Status: She is alert and oriented to person, place, and time. Cranial Nerves: No cranial nerve deficit. Motor: Motor function is intact. Coordination: Coordination normal. Gait: Gait is intact. Psychiatric: Attention and Perception: Attention normal. Mood and Affect: Mood and affect normal. Speech: Speech normal. Behavior: Behavior normal. Behavior is cooperative. Thought Content: Thought content normal. Cognition and Memory: Cognition and memory normal. Judgment: Judgment normal. ASSESSMENT/PLAN: 1. Lipoma of right axilla - ICD9: 214.1, ICD10: D17.21 (primary diagnosis) - CONSULT TO GENERAL SURGERY 2. Lipoma of right upper extremity - ICD9: 214.8, ICD10: D17.21 Consult to general surgery 3. Mass of right breast, unspecified quadrant - ICD9: 611.72, ICD10: N63.10 - MINDA DIAGNOSTIC BILATERAL - US BREAST LTD RIGHT 4. Mass of left breast, unspecified quadrant - ICD9: 611.72, ICD10: N63.20 - MINDA DIAGNOSTIC BILATERAL - US BREAST LTD LEFT Josseline Gillespie DO [facility] 02-09-2023 Nurse Note Ludin script mailed to patient. Edelmira Mayer MA documented in this encounter [facility] 02-09-2023 History of Presen t illness Narrative Subjective HPI Pt is here for an acute visit for a lump in the right underarm and on the right shoulder It is painful when she lies on her right and her right arm goes numb when she is lying on it She denies any breast masses, breast tenderness, changes in skin on the breasts Her last mammo 04/05/18 Review of Systems Constitutional: Negative for chills, diaphoresis, fever, malaise/fatigue and weight loss. HENT: Negative for ear pain and hearing loss. Eyes: Negative for blurred vision and double vision. Respiratory: Negative for cough and shortness of breath. Cardiovascular: Negative for chest pain, palpitations and leg swelling. Gastrointestinal: Negative for constipation, diarrhea and heartburn. Genitourinary: Negative for dysuria and frequency. Musculoskeletal: Negative for back pain, falls, joint pain and myalgias. Lipoma of right posterior shoulder and right underarm Skin: Negative for itching and rash. Neurological: Negative for dizziness, weakness and headaches. Endo/Heme/Allergies: Does not bruise/bleed easily. Psychiatric/Behavioral: Negative for depression and substance abuse. The patient does not have insomnia. Objective BP 126/76 Pulse 66 Temp 36.8 C (98.3 F) Resp 16 Ht 160 cm (5' 3 ) Wt 87.4 kg (192 lb 9.6 oz) LMP 08/29/2013 SpO2 98% BMI 34.12 kg/m Physical Exam Constitutional: Appearance: Normal appearance. HENT: Head: Normocephalic and atraumatic. Nose: Nose normal. Mouth/Throat: Mouth: Mucous membranes are moist. Dentition: Normal dentition. Eyes: General: Lids are normal. Extraocular Movements: Extraocular movements intact. Conjunctiva/sclera: Conjunctivae normal. Pupils: Pupils are equal, round, and reactive to light. Neck: Thyroid: No thyroid mass or thyromegaly. Vascular: No carotid bruit. Trachea: Phonation normal. Cardiovascular: Rate and Rhythm: Normal rate and regular rhythm. Heart sounds: Normal heart sounds. No murmur heard. No friction rub. No gallop. Pulmonary: Effort: Pulmonary effort is normal. Breath sounds: Normal breath sounds. No wheezing or rales. Abdominal: General: Bowel sounds are normal. There is no distension. Palpations: Abdomen is soft. There is no mass. Tenderness: There is no abdominal tenderness. Musculoskeletal: General: Deformity (Lipoma right posterior shoulder, lipoma of right axilla) present. No swelling or tenderness. Normal range of motion. Cervical back: Normal range of motion and neck supple. No edema. Comments: 1 cm Mass in center of right axilla Lymphadenopathy: Cervical: No cervical adenopathy. Skin: General: Skin is warm and dry. Findings: No erythema or rash. Nails: There is no clubbing. Comments: 2 mm mass right breast at 3:00, 2 mm mass of left breast at 9:00, both masses tender Neurological: Mental Status: She is alert and oriented to person, place, and time. Cranial Nerves: No cranial nerve deficit. Motor: Motor function is intact. Coordination: Coordination normal. Gait: Gait is intact. Psychiatric: Attention and Perception: Attention normal. Mood and Affect: Mood and affect normal. Speech: Speech normal. Behavior: Behavior normal. Behavior is cooperative. Thought Content: Thought content normal. Cognition and Memory: Cognition and memory normal. Judgment: Judgment normal. ASSESSMENT/PLAN: 1. Lipoma of right axilla - ICD9: 214.1, ICD10: D17.21 (primary diagnosis) - CONSULT TO GENERAL SURGERY 2. Lipoma of right upper extremity - ICD9: 214.8, ICD10: D17.21 Consult to general surgery 3. Mass of right breast, unspecified quadrant - ICD9: 611.72, ICD10: N63.10 - MINDA DIAGNOSTIC BILATERAL - US BREAST LTD RIGHT 4. Mass of left breast, unspecified quadrant - ICD9: 611.72, ICD10: N63.20 - MINDA DIAGNOSTIC BILATERAL - US BREAST LTD LEFT Josseline Gillespie DO documented in this encounter [facility] documented as of this encounter (statuses as of 04/23/2022) [facility] History of Past illness Narrative* Problem Noted Date Resolved Date Special screening for malignant neoplasms, colon 10/03/2014 12/02/2016 Abdominal pain, epigastric 10/03/201412/02 documented as of this encounter (statuses as of 02/24/2023) [facility] History of Past illness Narrative* Problem Noted Date Resolved Date Special screening for malignant neoplasms, colon 10/03/2014 12/02/2016 Abdominal pain, epigastric 10/03/201412/02 documented as of this encounter (statuses as of 03/02/2023) [facility] History of Past illness Narrative* Problem Noted Date Diagnosed Date Resolved Date Special screening for malign ant neoplasms, colon 10/03/2014 12/02/2016 Abdominal pain, epigastric 10/03/2014 0 12/02/2016 documented as of this encounter (statuses as of 04/26/2023) [facility] History of Past illness Narrative* Problem Noted Date Diagnosed Date Resolved Date Special screening for malign ant neoplasms, colon 10/03/2014 12/02/2016 Abdominal pain, epigastric 10/03/2014 0 12/02/2016 documented as of this encounter (statuses as of 04/30/2023) [address]05-2015 History of Past illness Narrative* Problem Noted Date Diagnosed Date Resolved Date Special screening for malign ant neoplasms, colon 10/03/2014 12/02/2016 Abdominal pain, epigastric 10/03/2014 0 12/02/2016 documented as of this encounter (statuses as of 05/01/2023) [address]05-2015 History of Past illness Narrative* Problem Noted Date Diagnosed Date Resolved Date Special screening for malign ant neoplasms, colon 10/03/2014 12/02/2016 Abdominal pain, epigastric 10/03/2014 0 12/02/2016 documented as of this encounter (statuses as of 05/11/2023) [address]05-2015 History of Past illness Narrative* Problem Noted Date Diagnosed Date Resolved Date Special screening for malign ant neoplasms, colon 10/03/2014 12/02/2016 Abdominal pain, epigastric 10/03/2014 0 12/02/2016 documented as of this encounter (statuses as of 05/11/2023) [address]05-2015 History of Past illness Narrative* Problem Noted Date Diagnosed Date Resolved Date Special screening for malign ant neoplasms, colon 10/03/2014 12/02/2016 Abdominal pain, epigastric 10/03/2014 0 12/02/2016 documented as of this encounter (statuses as of 05/11/2023) [address]05-2015 History of Past illness Narrative* Problem Noted Date Diagnosed Date Resolved Date Special screening for malign ant neoplasms, colon 10/03/2014 12/02/2016 Abdominal pain, epigastric 10/03/2014 0 12/02/2016 documented as of this encounter (statuses as of 05/24/2023) [address]05-2015 History of Past illness Narrative* Problem Noted Date Diagnosed Date Resolved Date Special screening for malign ant neoplasms, colon 10/03/2014 12/02/2016 Abdominal pain, epigastric 10/03/2014 0 12/02/2016 documented as of this encounter (statuses as of 06/03/2023) [address]05[address]2015 History of Past illness Narrative* Problem Noted Date Diagnosed Date Resolved Date Special screening for malign ant neoplasms, colon 10/03/2014 12/02/2016 Abdominal pain, epigastric 10/03/2014 0 12/02/2016 documented as of this encounter (statuses as of 06/28/2023) [facility] History of Past illness Narrative* Problem Noted Date Diagnosed Date Resolved Date Special screening for malign ant neoplasms, colon 10/03/2014 12/02/2016 Abdominal pain, epigastric 10/03/2014 0 12/02/2016 documented as of this encounter (statuses as of 07/30/2023) [facility] noteN/ADept. of Dermatology Evaluation note* Diagnosis Lipoma of right axilla- Primary Lipoma of right upper extremity Lipoma of other specified sites Mass of right breast, unspecified quadrant Mass of left breast, unspecified quadrant documented in this encounter [facility] note* Diagnosis Rectal bleeding- Primary Hemorrhage of rectum and anus documented in this encounter [facility] note* Diagnosis Rectal bleeding Hemorrhage of rectum and anus documented in this encounter [facility] note* Diagnosis COPD with exacerbation (HCC)- Primary Obstructive chronic bronchitis with exacerbation Upper respiratory virus Acute upper respiratory infections of unspecified site Cough, unspecified type Poison neva dermatitis Contact dermatitis and other eczema due to plants (except food) Wheezing Dyspnea, unspecified type documented in this encounter [facility] note* Diagnosis Nodule of left lung- Primary Solitary pulmonary nodule [facility] Diagnosis Nodule of left lung Solitary pulmonary nodule [facility] Diagnosis COPD with exacerbation (HCC) Obstructive chronic bronchitis with exacerbation Dyspnea, unspecified type [facility] Diagnosis 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 of Dermatology Reason for referral (narrative)* Diagnostic Procedure Only (Routine) - Authorized Specialty Diagnoses / Procedures Referred By Demetrius tiwari Referred To Contact [facility] Diagnoses Mass of left breast, unspecified quadrant Procedures US BREAST LTD LEFT US BREAST UNI REAL TIME WITH IMAGE LIMITED Sheets, Josseline Chapman DO [address] [place] [address] [facility] [address] [place] [address] Referral ID Status Reason Start Date Expiration Date Visits Requested Visits Authorized [id number] Authorized Auto-Generat ed Referral 02/09/2023 03/10/2024 1 1 * Diagnostic Procedure Only (Routine) - Authorized Specialty Diagnoses / Procedures Referred By Demetrius tiwari Referred To Contact [facility] Diagnoses Mass of right breast, unspecified quadrant Procedures US BREAST LTD RIGHT US BREAST UNI REAL TIME WITH IMAGE LIMITED Josseline Gillespie DO [address] [place] [address] [facility] [address] [place] [address] Referral ID Status Reason Start Date Expiration Date Visits Requested Visits Authorized [id number] Authorized Auto-Generat ed Referral 02/09/2023 03/10/2024 1 1 * Diagnostic Procedure Only (Routine) - Authorized Specialty Diagnoses / Procedures Referred By Demetrius tiwari Referred To Contact [facility] Diagnoses Mass of right breast, unspecified quadrant Mass of left breast, unspecified quadrant Procedures MINDA DIAGNOSTIC BILATERAL DIAGNOSTIC MAMMOGRAPHY COMPUTER-AIDED DETCJ BI Josseline Gillespie DO [address] [place] [address] [facility] [address] [place] [address] Referral ID Status Reason Start Date Expiration Date Visits Requested Visits Authorized [id number] Authorized Auto-Generat ed Referral 02/09/2023 03/10/2024 1 1 * Consult, Test, Treat (Routine) - Authorized Specialty Diagnoses / Procedures Referred By Demetrius tiawri Referred To Contact General Surgery / [facility] Department Diagnoses Lipoma of right axilla Procedures CONSULT TO GENERAL SURGERY OFFICE/OUTPATIENT NEW HIGH MDM 60-74 MINUTES Josseline Gillespie DO [address] [place] [address] Lorenzo Emmanuel MD [address] [place] [address] Referral ID Status Reason Start Date Expiration Date Visits Requested Visits Authorized [id number] Authorized PCP Requested Referral 02/09/2023 02/09/2024 1 1 [facility] Summary Purpose Family History No Family History Records FoundNo Family History Records FoundNo Family History Records FoundNo Family History Records Found Advance Directives No Advanced Directives Records FoundNo Advanced Directives Records FoundNo Advanced Directives Records FoundNo Advanced Directives Records Found Reason for Referral Specialty Diagnoses / Procedures Referred By Contac t Referred To Contact General Surgery / [facility] DEPARTMENT Diagnoses Rectal bleeding Procedures CONSULT TO GENERAL SURGERY OFFICE/OUTPATIENT [facility] MDM 60-74 MINUTES Lucia Mariano, SNAP SHEARER.ICU STAFF NURSE [address] [place] [address] Lorenzo Emmanuel MD [address] [place] [address] Referral ID Status Reason Start Date Expiration Date Visits Requested Visits Authorized [id number] Authorized PCP Requested Referral 04/25/2023 04/24/2024 1 1 Specialty Diagnoses / Procedures Referred By Contac t Referred To Contact Diagnoses COPD with exacerbation (HCC) Dyspnea, unspecified type Lucia Mariano SNAP SHEARER.ICU STAFF NURSE [address] [place] [address] Referral ID Status Reason Start Date Expiration Date Visits Re quested Visits Authorized [id number] Closed 1 1 Specialty Diagnoses / Procedures Referred By Contac t Referred To Contact CT IMAGING Diagnoses Nodule of left lung Procedures CT CHEST WO IVCON DIAGNOSTIC COMPUTED TOMOGRAPHY THORAX W/O CNTRST Lucia Mariano SNAP SHEARER.ICU STAFF NURSE [address] [place] [address] [place] [address] Referral ID Status Reason Start Date Expiration Date Visits Requested Visits Authorized [id number] Pending Review Auto-Generat ed Referral 05/10/2023 06/08/2024 1 1 Specialty Diagnoses / Procedures Referred By Demetrius tiwari Referred To Contact Diagnoses Neoplasm of uncertain behavior of skin of forearm Procedures CONSULT TO DERMATOLOGY OFFICE/OUTPATIENT [facility] 60-74 MINUTES Josseline Gillespie DO [address] [facility] [place] [address] Cristhian Carver MD [address] [place] [address] Referral ID Status Reason Start Date Expiration Date Visits Requested Visits Authorized [id number] Authorized PCP Requested Referral 3 07/14/2024 1 1 Medications Administered Section Inactive Administered Medications - up to 3 most recent administrations Medication Order MAR Action Action Date Dose Rate Site ipratropium-albuterol 3 mL nebulizer solution (DUONEB) 3 mL, INHALATION, ONCE, 1 dose, On Tue05/10/23 at 1230, PROTECT FROM LIGHT. The unit-dose vial should remain stored in the protective foil pouch until time of use. Given 05/10/2023 1:10 PM EDT 3 mL Additional Source Comments INFORMATION SOURCE (unrecogn ized section and content) DATE CREATED AUTHOR AUTHOR'S ORGANIZ ATION 03/08/2023 [facility] DATE CREATED AUTHOR AUTHOR'S ORGANIZ ATION 06/02/2023 [facility] DATE CREATED AUTHOR AUTHOR'S ORGANIZ ATION 08/09/2023 [facility] Source Comments (unrecognize d section and content) In the event this informatio n is protected by the Federal Confidentiality of Alcohol and Drug Abuse Patient Records regulations: The Federal rules restrict any use of the information to criminally investigate or prosecute any alcohol or drug abuse patient.[facility] the event this information is protected by the Federal Confidentiality of Alcohol and Drug Abuse Patient Records regulations: The Federal rules restrict any use of the information to criminally investigate or prosecute any alcohol or drug abuse patient.[facility] the event this information is protected by the Federal Confidentiality of Alcohol and Drug Abuse Patient Records regulations: The Federal rules restrict any use of the information to criminally investigate or prosecute any alcohol or drug abuse patient.[facility] the event this information is protected by the Federal Confidentiality of Alcohol and Drug Abuse Patient Records regulations: The Federal rules restrict any use of the information to criminally investigate or prosecute any alcohol or drug abuse patient.[facility] the event this information is protected by the Federal Confidentiality of Alcohol and Drug Abuse Patient Records regulations: The Federal rules restrict any use of the information to criminally investigate or prosecute any alcohol or drug abuse patient.[facility] the event this information is protected by the Federal Confidentiality of Alcohol and Drug Abuse Patient Records regulations: The Federal rules restrict any use of the information to criminally investigate or prosecute any alcohol or drug abuse patient.[facility] the event this information is protected by the Federal Confidentiality of Alcohol and Drug Abuse Patient Records regulations: The Federal rules restrict any use of the information to criminally investigate or prosecute any alcohol or drug abuse patient.[facility] the event this information is protected by the Federal Confidentiality of Alcohol and Drug Abuse Patient Records regulations: The Federal rules restrict any use of the information to criminally investigate or prosecute any alcohol or drug abuse patient.[facility] the event this information is protected by the Federal Confidentiality of Alcohol and Drug Abuse Patient Records regulations: The Federal rules restrict any use of the information to criminally investigate or prosecute any alcohol or drug abuse patient.[facility] the event this information is protected by the Federal Confidentiality of Alcohol and Drug Abuse Patient Records regulations: The Federal rules restrict any use of the information to criminally investigate or prosecute any alcohol or drug abuse patient.[facility] the event this information is protected by the Federal Confidentiality of Alcohol and Drug Abuse Patient Records regulations: The Federal rules restrict any use of the information to criminally investigate or prosecute any alcohol or drug abuse patient.[facility] the event this information is protected by the Federal Confidentiality of Alcohol and Drug Abuse Patient Records regulations: The Federal rules restrict any use of the information to criminally investigate or prosecute any alcohol or drug abuse patient.[facility] the event this information is protected by the Federal Confidentiality of Alcohol and Drug Abuse Patient Records regulations: The Federal rules restrict any use of the information to criminally investigate or prosecute any alcohol or drug abuse patient.[facility] Reason for Visit (unrecogniz ed section and content) Reason Comments [facility] Lump under right arm and at back of right arm, noticed them a couple months ago Reason Comments Patient Question Reason Comments Patient Update Reason Comments Missed Appointment Reason Comments Consult Evaluation for diarr hea, bloody stools, blood clots and menstrual-like abdominal cramps. Specialty Diagnoses / Procedures Referred By Demetrius tiwari Referred To Contact General Surgery / [facility] DEPARTMENT Diagnoses Rectal bleeding Procedures CONSULT TO GENERAL SURGERY OFFICE/OUTPATIENT [facility] 60-74 MINUTES Lucia Mariano, SNAP SHEARER.ICU STAFF NURSE [address] [place] [address] Lorenzo Emmanuel MD [address] [facility] [place] [address] Referral ID Status Reason Start Date Expiration Date V isits Requested Visits Authorized [id number] Closed PCP Requested Referral 04/25/2023 04/24/2024 1 1 Reason Comments Physical Declined pap Rash Thinks she has poiso n neva. Noticed it on eye and left arm yesterday. Cough Postalnasal drainage . Hurts back and lungs when coughs x 2 days. Reason Comments Results CXR Reason Comments Results Specialty Diagnoses / Procedures Referred By Demetrius tiwari Referred To Contact CT IMAGING Diagnoses Nodule of left lung Procedures CT CHEST WO IVCON DIAGNOSTIC COMPUTED TOMOGRAPHY THORAX W/O CNTRST Lucia Mariano, SNAP SHEARER.ICU STAFF NURSE [address] [place] [address] [place] [address] Referral ID Status Reason Start Date Expiration Date V isits Requested Visits Authorized [id number] Closed Auto-Generate d Referral 05/11/2023 07/10/2023 1 1 Reason Comments Appointment Reason Comments Refill Request Reason Comments Hospital Follow Up Had two stents place d at [facility]. Has had two episodes of chest discomfort since surgery. Has had some sharp chest pains a week ago. Still SOB but was told it was from one of her medications and she has to take it for a month before they will change it. Care Teams (unrecognized sec tion and content) Lead Generation Marketing Manager Relationship Specialty Start Date End Date Terri Kaur MD PCP - General Internal Medicine 12/02/16 02/21/23 [place], [place] S Fringing Machine Operator Cardiology 12/02/16 Lorenzo Emmanuel MD [address] [place] [address] Fringing Machine Operator General Surgery 12/02/16 Lead Generation Marketing Manager Relationship Specialty Start Date End Date Josseline Gillespie DO [address] [place], [place] [id number] PCP - General Family Medicine 02/22/23 Alphonso, [place] S Fringing Machine Operator Cardiology 12/02/16 Lorenzo Emmanuel MD [address] [place] [address] Fringing Machine Operator General Surgery 12/02/16 Lead Generation Marketing Manager Relationship Specialty Start Date End Date Josseline Gillespie DO [address] [place] [address] PCP - General Family Medicine 02/22/23 Alphonso, Norbetro S Fringing Machine Operator Cardiology 12/02/16 Lorenzo Emmanuel MD [address] [place] [address] Fringing Machine Operator General Surgery 12/02/16 Lead Generation Marketing Manager Relationship Specialty Start Date End Date Josseline Gillespie DO [address] [place] [address] PCP - General Family Medicine 02/22/23 AlphonsoNorberto correa S Fringing Machine Operator Cardiology 12/02/16 Lorenzo Emmanuel MD [address] [place] [address] Fringing Machine Operator General Surgery 12/02/16 Lead Generation Marketing Manager Relationship Specialty Start Date End Date Josseline Gillespie DO [address] [place] [address] PCP - General Family Medicine 02/22/23 Norberto Werner S Fringing Machine Operator Cardiology 12/02/16 Lorenzo Emmanuel MD [address] [place] [address] Fringing Machine Operator General Surgery 12/02/16 Lead Generation Marketing Manager Relationship Specialty Start Date End Date Josseline Gillespie DO [address] [place] [address] PCP - General Family Medicine 02/22/23 Norberto Werner S Fringing Machine Operator Cardiology 12/02/16 Lorenzo Emmanuel MD [address] [place] [address] Fringing Machine Operator General Surgery 12/02/16 Lead Generation Marketing Manager Relationship Specialty Start Date End Date Sheets, Josseline Chapman DO [address] [place] [address] PCP - General Family Medicine 02/22/23 Norberto Werner Fringing Machine Operator Cardiology 12/02/16 Lorenzo Emmanuel MD [address] [facility] [place] [address] Fringing Machine Operator General Surgery 12/02/16 Lead Generation Marketing Manager Relationship Specialty Start Date End Date SheetsJosseline DO [address] [place] [address] PCP - General Family Medicine 02/22/23 Norberto Werner Fringing Machine Operator Cardiology 12/02/16 Lorenzo Emmanuel MD [address] [facility] [place] [address] Fringing Machine Operator General Surgery 12/02/16 Lead Generation Marketing Manager Relationship Specialty Start Date End Date SheetsJosseline DO [address] [place] [address] PCP - General Family Medicine 02/22/23 Norberto Werner MD Fringing Machine Operator Cardiology 12/02/16 Lorenzo Emmanuel MD [address] [facility] – [place] [address] Fringing Machine Operator General Surgery 12/02/16 Lead Generation Marketing Manager Relationship Specialty Start Date End Date SheetsJosseline DO [address] [place] [address] PCP - General Family Medicine 02/22/23 Norberto Werner MD Fringing Machine Operator Cardiology 12/02/16 Lorenzo Emmanuel MD [address] [facility] [place] [address] Fringing Machine Operator General Surgery 12/02/16 Lead Generation Marketing Manager Relationship Specialty Start Date End Date Josseline iGllespie DO [address] [place] [address] PCP - General Family Medicine 02/22/23 Norberto Werner MD Fringing Machine Operator Cardiology 12/02/16 Lorenzo Emmanuel MD [address] [place] [address] Fringing Machine Operator General Surgery 12/02/16 Lead Generation Marketing Manager Relationship Specialty Start Date End Date Josseline Gillespie DO [address] [facility] [place] [place] [address] PCP - General Family Medicine 02/22/23 Norberto Werner MD Fringing Machine Operator Cardiology 12/02/16 Lorenzo Emmanuel MD [address] [facility] [place] [address] Fringing Machine Operator General Surgery 12/02/16 FOR RECORDS PERTAINING TO PATIENTS WHO ARE OR HAVE BEEN ENROLLED IN A CHEMICAL DEPENDENCY/SUBSTANCEABUSE PROGRAM, SOME INFORMATION MAY BE OMITTED. This clinical summary was aggregated from multiple sources. Caution should be exercised in using it in the provision of clinical care. This summary normalizes information from multiple sources, and as a consequence, information in this document may materially change the coding, format and clinical context of patient data. In addition, data may be omitted in some cases. CLINICAL DECISIONS SHOULD BE BASED ON THE PRIMARY CLINICAL RECORDS. [facility] [employer] [facility]. provides no warranty or guarantee of the accuracy or completeness of information in this document.
== END | disposition home or self-care (01) ==
LOC: PSN 06:50
PROVIDERS: PCP Family Medicine; Referring Provider Nurse Practitioner Gerontology; Visit Provider Nurse Practitioner Gerontology
DX: R06.02 Shortness of breath (principal)
CPT/HCPCS: 94060; 94726; 94729

== ENCOUNTER → 2024-07-06 | Outpatient (CLI) | payer MEDICAID, SELFPAY ==
[2024-07-06 11:02] LABS: AST(SGOT) 17 U/L (15-37); Alanine Aminotransfer ALT/SGPT 21 U/L (13-56); Albumin, Serum 3.6 g/dL (3.2-5.0); Alkaline Phosphatase 65 U/L (45-117); Bilirubin, Direct 0.13 mg/dL (0.00-0.30); Cholesterol 137 mg/dL (200); High Density Lipoprotein 59 mg/dL; Protein, Total 6.6 g/dL (6.4-8.2); Triglycerides 86 mg/dL; Very Low Density Lipoprotein 17 mg/dL (5-40)
== END | disposition home or self-care (01) ==
LOC: LAB 09:39
PROVIDERS: PCP Family Medicine; Referring Provider Nurse Practitioner Gerontology; Visit Provider Nurse Practitioner Gerontology
DX: E78.00 Pure hypercholesterolemia, unspecified (principal)
CPT/HCPCS: 36415; 80061; 80076

== ENCOUNTER → 2024-07-25 | Outpatient (CLI) | payer MEDICAID, SELFPAY ==
--- NOTE | 2024-07-25 10:48 | VDLE_ITS ---
Reason For Study: LLE Swelling RIGHT LEFT FV is compressible, spontaneous, phasic, GSV is normal. competent and demonstrates normal CFV is compressible, spontaneous, phasic, augmentation. competent, and demonstrates normal Procedure augmentation. This is a venous duplex using B-mode, color FV is compressible, spontaneous, phasic, flow and spectral Doppler. competent and demonstrates normal Exam performed in department. augmentation. The exam was diagnostic. POP V is compressible, spontaneous, phasic, A preliminary report was called and/or faxed competent and demonstrates normal to Jennifer Leary / CARLA. augmentation. T/P Trunk is compressible. PTV is compressible. LT PerV is compressible. VL/Venous Duplex US, Unilateral Interpretation Summary Deep veins of the left lower extremity are patent and compressible segmentally. There is no evidence of left lower extremity deep vein thrombosis. The left great saphenous vein debra ears patent and compressible segmentally. Ordering Physician: Jennifer Leary Referring Physician: Jennifer Leary Performed By: Warren Mathis RVT
== END | disposition home or self-care (01) ==
LOC: CVS 10:47
PROVIDERS: PCP Family Medicine; Referring Provider Physician Assistant Medical; Visit Provider Physician Assistant Medical
DX: M79.605 Pain in left leg (principal); M79.89 Other specified soft tissue disorders
CPT/HCPCS: 93971

== ENCOUNTER → 2025-02-05 | Outpatient (CLI) | payer MEDICAID, SELFPAY ==
--- NOTE | 2025-02-05 09:57 | ECHOD_ITS ---
Reason For Study Reason For Study: SHORTNESS OF BREATH Procedure This was a 2D Doppler, Color Flow transthoracic echocardiogram. Exam performed in department. Left Ventricle Normal LV size. Left ventricular systolic function is normal. The left ventricular ejection fraction is 70 %. Stage 1 diastolic dysfunction. No regional wall motion abnormalities noted. Right Ventricle Normal RV size. Normal systolic function. Atria Normal left atrium. Normal right atrium. Mitral Valve Normal mitral valve. Tricuspid Valve Normal tricuspid valve. Mild (1+) tricuspid valve insufficiency. Pulmonary artery systolic pressure is 28 mmHg. Aortic Valve Trisinus/trileaflet aortic valve. Pulmonic Valve Normal pulmonic valve. Great Vessels Normal aortic root. The pulmonary artery is normal size. Inferior vena cava collapse with sniff. Pericardium/Pleural No pericardial effusion. MMode/2D Measurements & Calculations LVIDd: 4.3 cm IVSd: 1.2 cm LVOT diam: 2.0 cm LVIDs: 2.3 cm LVPWd: 1.1 cm LVOT area: 3.3 cm2 RVDd: 3.3 cm FS: 47.1 % asc Aorta Diam: 3.1 cm LAV(MOD-bp): 54.8 ml LVAd ap4: 23.2 cm2 LAV(MOD-bp) Indexed: 28.8 ml/m2 LVLd ap4: 7.3 cm LAV(MOD-sp2): 50.2 ml EDV(MOD-sp4): 60.5 ml LAV(MOD-sp4): 58.8 ml EDV(sp4-el): 63.0 ml LVAs ap4: 10.5 cm2 LVLs ap4: 5.8 cm ESV(MOD-sp4): 16.6 ml ESV(sp4-el): 16.4 ml EF(MOD-sp4): 72.5 % EF(sp4-el): 74.0 % LVAd ap2: 23.7 cm2 SV(MOD-sp4): 43.8 ml SV(MOD-sp2): 43.2 ml LVLd ap2: 7.6 cm SI(MOD-sp4): 23.0 ml/m2 SI(MOD-sp2): 22.7 ml/m2 EDV(MOD-sp2): 60.4 ml EDV(sp2-el): 62.6 ml LVAs ap2: 11.0 cm2 LVLs ap2: 6.0 cm ESV(MOD-sp2): 17.2 ml ESV(sp2-el): 17.2 ml EF(MOD-sp2): 71.5 % SV(sp4-el): 46.7 ml Ao sinus diam: 3.[address] Junction: 2.5 cm LA dimension(2D): 4.4 cm LA A4 area: 20.8 cm2 RA A4 area: 14.2 cm2 TAPSE: 1.8 cm Time Measurements MV dec time: 0.21 sec Doppler Measurements & Calculations MV E max emigdio: 75.8 cm/sec Lat Peak E' Emigdio: 12.6 cm/sec Med Peak E' Emigdio: 8.1 cm/sec MV A max emigdio: 87.1 cm/sec E/E' lat: 6.0 E/E' med: 9.3 MV E/A: 0.87 MV dec slope: 355.4 cm/sec2 Ao V2 max: 152.9 cm/sec LV V1 max: 118.0 cm/sec Ao max P.3 mmHg LV V1 max P.6 mmHg Ao V2 mean: 102.9 cm/sec LV V1 mean P.2 mmHg Ao mean P.9 mmHg LV V1 mean: 84.6 cm/sec Ao V2 VTI: 38.5 cm LV V1 VTI: 30.0 cm AV (velocity ratio): 0.78 MARIA ISABEL(I,D): 2.6 cm2 MARIA ISABEL(V,D): 2.5 cm2 SV(LVOT): 98.2 ml PA V2 max: 81.7 cm/sec TR max emigdio: 246.1 cm/sec TR max P.2 mmHg ECHO/Echo Complete Interpretation Summary Normal LV size. Left ventricular systolic function is normal. The left ventricular ejection fraction is 70 %. Stage 1 diastolic dysfunction. Pulmonary artery systolic pressure is 28 mmHg. Ordering Physician: Vicky Glez Referring Physician: Vicky Glez Performed By: Kimberlyn Butts RDCS
== END | disposition home or self-care (01) ==
PROVIDERS: PCP Family Medicine; Referring Provider Nurse Practitioner Gerontology; Visit Provider Nurse Practitioner Gerontology
DX: R06.02 Shortness of breath (principal)
CPT/HCPCS: 93306

== ENCOUNTER → 2025-05-27 | Outpatient (CLI) | payer MEDICAID, SELFPAY ==
--- OUTSIDE RECORDS SUMMARY | 2025-05-24 07:44 | XMS RPT_ITS ---
Author Name Auto Generated Organization [facility] Care Team Providers Care Global Regulatory Affairs Manager Name Role Phone SHEETS, JOSSELINE C Referring Unavailable SHEETS, JOSSELINE C Primary Care Unavailable SHEETS, JOSSELINE C Referring Unavailable SHEETS, JOSSELINE C Primary Care Unavailable SHEETS, JOSSELINE C Attending Unavailable SHEETS, JOSSELINE C Primary Care Unavailable SHEETS, JOSSELINE C Referring Unavailable SHEETS, JOSSELINE C Primary Care Unavailable SHEETS, JOSSELINE C Attending Unavailable SHEETS, JOSSELINE C Referring Unavailable SHEETS, JOSSELINE C Primary Care Unavailable SHEETS, JOSSELINE C Referring Unavailable SHEETS, JOSSELINE C Primary Care Unavailable SHEETS, JOSSELINE C Referring Unavailable SHEETS, JOSSELINE C Primary Care Unavailable OLAYINKA RANDOLPH Attending Unavailable SHEETS, JOSSELINE C Primary Care Unavailable PROBLEMS DATE TYPE CONDITION / CODE ATTENDING STATUS [facility] 05/24/2025 Active Combined form of age-related cataract, left eye / H25.812(ICD-10) OLAYINKA RANDOLPH Active [facility] 05/24/2025 Active Combined form of age-related cataract, right eye / H25.811(ICD-10) OLAYINKA RANDOLPH Active [facility] 05/24/2025 Active Regular astigmat ism, bilateral / H52.223(ICD-10) OLAYINKA RANDOLPH Active [facility] 03/27/2018 Active Obesity, Class I , BMI 30-34.9 / E66.811(ICD-10) NA Active [facility] 07/15/2023 Active Coronary artery disease of [place] artery of [place] heart with stable angina pectoris / I25.118(ICD-10) NA Active [facility] 03/25/2025 Active Hypertension, essential / I10(ICD-10) JOSSELINE GILLESPIE Active [facility] 03/25/2025 Active Well adult exam / Z00.00(ICD-10) JOSSELINE GILLESPIE Active [facility] 03/25/2025 Active Breast tendernes s in female / N64.4(ICD-10) JOSSELINE GILLESPIE Active [facility] 07/13/2024 Active Lung nodule seen on imaging study / R91.1(ICD-10) NA Active [facility] PROCEDURES No Procedure Records Found RESULTS CNPN Observed: 05/27/2025 12:00 AM Status: COMPLETED Source: [facility] Telephone (AGFAMPLE) ANANYA BOWERS ([id number]) 1965 F Date Time Provider Department 05/27/25 JOSSELINE GILLESPIE During your visit today, we recorded the following information about you: Enedina Vilchis MA 05/27/2025 11:39 AM Signed Pt. Lm on vm wondering if she needs labs done. She is getting eye surgery. Please advise. SUSANNAH Mcwilliams Kimberly C, DO 05/27/2025 12:37 PM Signed No, she does not need labs DO Bailey Otero Mary, MA 05/27/2025 1:09 PM Signed Pt notified. Enedina Vilchis MA Allergies As of Date: 05/27/2025 Noted Allergy Reaction PREDNISONE 03/21/2023 14 - Other: See Comments Comments: Heart Racing Date Reviewed: 05/24/2025 Reviewed by: Olayinka Randolph MD - Fully Assessed Reason for Visit: Patient Question [6437] Prescriptions as of 05/27/2025 - fluorometholone (FML LIQUID FILM) 0.1 % ophthalmic suspension Use 1 drop in both eyes three times a day. - buPROPion SR (WELLBUTRIN SR) 100 mg 12 hr tablet Take 1 tablet by mouth two times a day. - ezetimibe (ZETIA) 10 mg tablet Take 10 mg by mouth once daily. - clopidogrel (PLAVIX) 75 mg tablet Take 75 mg by mouth once daily. - albuterol HFA (PROVENTIL HFA, VENTOLIN HFA) 90 mcg/actuation inhaler Inhale 2 Puffs as instructed every 4 hours as needed for wheezing/shortness of breath. - hydroCHLOROthiazide 25 mg tablet Take 25 mg by mouth once daily. - omeprazole (PRILOSEC) 20 mg capsule Take 1 capsule by mouth every afternoon. - calcium-cholecalciferol, D3, (OSCAL+D 250) 250-125 mg-unit per tablet Take 1 tablet by mouth twice daily. - isosorbide mononitrate ER (IMDUR) 60 mg 24 hr tablet Take 60 mg by mouth once daily. - acetaminophen (TYLENOL) 500 mg tablet Take 2 tablets by mouth three times daily. - losartan (COZAAR) 100 mg tablet Take 100 mg by mouth once daily. - metoprolol succinate ER (TOPROL XL) 50 mg 24 hr tablet Take 50 mg by mouth once daily. - nitroglycerin sublingual (NITROQUICK) 0.4 mg SL tablet Dissolve 0.4 mg under the tongue every 5 minutes as needed. - dilTIAZem LA (CARDIZEM LA) 240 mg 24 hr tablet Take 240 mg by mouth once daily. - pravastatin (PRAVACHOL) 40 mg tablet Take 40 mg by mouth daily at bedtime. - Aspirin 81 mg ORAL Tab Take 81 mg by mouth. Problem List As Of Date 05/27/2025 Noted Resolved Special screening for malignant neoplasms, colo*10/03/2014 12/02/2016 Abdominal pain, epigastric [R10.13] 10/03/2014 12/02/2016 Obesity, Class I, BMI 30-34.9 [E66.811] 03/27/2018 Acute midline low back pain without sciatica [M*11/16/2018 Closed compression fracture of L2 lumbar verteb*11/16/2018 Lumbar spondylosis [M47.816] 03/07/2019 Degeneration of lumbar intervertebral disc [M51*03/07/2019 Weakness of trunk musculature [M62.81] 03/07/2019 Coronary artery disease of [place] artery of [place]*07/15/2023 SOB (shortness of breath) [R06.02] 07/15/2023 History of heart artery stent [Z95.5] 07/15/2023 Hypertension, essential [I10] 03/25/2025 Encounter Status:Closed by ENEDINA VILCHIS on 05/27/25 PROGRESS Observed: 05/24/2025 8:41 AM Status: COMPLETED Source: [facility] Author: OLAYINKA RANDOLPH MD Service: ? Author Type: Physician Type: Progress Notes Filed: 05/24/2025 09:30 Note Text: Prednisone allergy, one drop of pred forte put into right eye with no side effect ASSESSMENT/PLAN: 1. Combined form of age-related cataract, left eye - ICD9: 366.19, ICD10: H25.812 (primary diagnosis) Ananya Bowers has confirmed that she is no longer able to function adequately on a day-to-day basis because of her current visual condition. Further, it is my medical opinion that the cataract is the primary cause, or at least a significant cause of her visual dysfunction. Other eye diseases have been ruled out as primary cause of decreased vision. It is my expectation that visual function and quality of life will improve significantly with cataract extraction and intraocular lens implantation. The risks, benefits, alternatives, and complications of cataract surgery with intraocular lens implantation were discussed with Ananya Bowers in detail. Ananya Bowers appeared to understand and asked that I proceed with plans for cataract surgery. A complete, comprehensive eye examination and biometry has been performed on Ananya Bowers. Blood pressure 107/74, pulse (!) 58, last menstrual period 08/29/2013. Patient to see Nutrition Professor for surgical clearance with EKG Start Current Ophthalmic Meds fluorometholone (FML LIQUID FILM) 0.1 % ophthalmic suspension Use 1 drop in both eyes three times a day. Systane Pro 1 drop in both eyes three times daily Cataract surgery left eye is scheduled on 07/02/25 2. Combined form of age-related cataract, right eye - ICD9: 366.19, ICD10: H25.811 - Plan cataract surgery right eye after left eye is completed and stable 3. Regular astigmatism, bilateral - ICD9: 367.21, ICD10: H52.223 - Patient educated on standard monofocal Intraocular lens vs toric Intraocular lens. Patient wishes to proceed with standard Intraocular lens and understands she will need glasses for correction of astigmatism post operatively I have confirmed and edited as necessary the relevant HPI, ophthalmic history, ROS, and the neuro exam findings as obtained by others. I have seen and examined Ananya Bowers. I have discussed the case and the management of this patient's care with the Resident/Fellow, if applicable. I also have reviewed and agree with the assessment and plan as stated above and agree with all of its relevant components. [employer] RT Observed: 11:28 AM Status: F Source: [facility] * * *Final Report* * * DATE OF EXAM: May 14 2025 11:28AM WRU 0594 - [employer] [facility]AST [employer] RT / PROCEDURE REASON: Breast tenderness in female * * * * Physician Interpretation * * * * [place] [address] #[id number] - [facility] DIAG W ZOE FITZ #[id number] - [employer] BREAST InterVal[employer] LT #[id number] - [employer] BREAST InterVal[employer] RT HISTORY: 59 year-old patient presents for diagnostic evaluation of a palpable abnormality in the right breast. Patient states no personal history of breast cancer. COMPARISON STUDIES: The present examination has been compared to a prior imaging study dated 02/17/2023 (mammogram). MAMMOGRAM TECHNIQUE: The study was acquired using full field digital technology and interpreted from soft copy. Digital Breast Tomosynthesis (DBT) images were obtained and used to assist in the interpretation of this examination. MAMMOGRAM FINDINGS: There are scattered areas of fibroglandular density. No suspicious masses, calcifications or other abnormalities are seen in either breast. There are no significant interval changes. ULTRASOUND TECHNIQUE: Targeted ultrasound of the indicated area was performed. Ochoa scale images were saved. ULTRASOUND FINDINGS: There are no suspicious findings in the imaged areas. There is no sonographic abnormality corresponding with the area of palpable concern right axilla. There is no sonographic abnormality corresponding with the area of focal pain in the left breast. IMPRESSION: There is no mammographic or sonographic evidence of malignancy in either breast. Further management should be based on clinical assessment. Return to annual screening mammogram is recommended. Annual mammogram will be due in 1 year. BI-RADS Category 1: Negative RISK: Based on the Tyrer-Cuzick (TC) risk assessment model, this patient has a 2.8% lifetime risk of developing breast cancer, meaning they are at average risk for developing breast cancer. However, this is only an estimate based on available history provided on the patient's questionnaire. We encourage all patients to talk with their providers about these results, further recommendations for managing breast health, and appropriate supplemental screening options if the patient has dense breast tissue. Interpreting Radiologist: Juanito Golden M.D. Electronically signed on: 05/14/2025 Communications Associate: SAMREEN Transcribe Date/Time: May 14 2025 11:21A Dictated by : JUANITO GOLDEN MD This examination was interpreted and the report reviewed and electronically signed by: JUANITO GOLDEN MD on May 14 2025 12:19PM EST [id number] [employer] BREAST LTD LT Observed: 11:28 AM Status: F Source: [facility] * * *Final Report* * * DATE OF EXAM: May 14 2025 11:28AM WRU 0593 - [employer] BREAST LTD LT / PROCEDURE REASON: Breast tenderness in female * * * * Physician Interpretation * * * * [place] [address] #[id number] - [facility] CEM ENRIQUEZ FITZ #[id number] - [employer] BREAST LTD LT #[id number] - [employer] BREAST LTD RT HISTORY: 59 year-old patient presents for diagnostic evaluation of a palpable abnormality in the right breast. Patient states no personal history of breast cancer. COMPARISON STUDIES: The present examination has been compared to a prior imaging study dated 02/17/2023 (mammogram). MAMMOGRAM TECHNIQUE: The study was acquired using full field digital technology and interpreted from soft copy. Digital Breast Tomosynthesis (DBT) images were obtained and used to assist in the interpretation of this examination. MAMMOGRAM FINDINGS: There are scattered areas of fibroglandular density. No suspicious masses, calcifications or other abnormalities are seen in either breast. There are no significant interval changes. ULTRASOUND TECHNIQUE: Targeted ultrasound of the indicated area was performed. Ochoa scale images were saved. ULTRASOUND FINDINGS: There are no suspicious findings in the imaged areas. There is no sonographic abnormality corresponding with the area of palpable concern right axilla. There is no sonographic abnormality corresponding with the area of focal pain in the left breast. IMPRESSION: There is no mammographic or sonographic evidence of malignancy in either breast. Further management should be based on clinical assessment. Return to annual screening mammogram is recommended. Annual mammogram will be due in 1 year. BI-RADS Category 1: Negative RISK: Based on the Tyrer-Cuzick (TC) risk assessment model, this patient has a 2.8% lifetime risk of developing breast cancer, meaning they are at average risk for developing breast cancer. However, this is only an estimate based on available history provided on the patient's questionnaire. We encourage all patients to talk with their providers about these results, further recommendations for managing breast health, and appropriate supplemental screening options if the patient has dense breast tissue. Interpreting Radiologist: Juanito Golden M.D. Electronically signed on: 05/14/2025 Communications Associate: SAMREEN Transcribe Date/Time: May 14 2025 11:20A Dictated by : JUANITO GOLDEN MD This examination was interpreted and the report reviewed and electronically signed by: JUANITO GOLDEN MD on May 14 2025 12:19PM EST [id number] PROGRESS Observed: 05/14/2025 11:00 AM Status: COMPLETED Source: [facility] Author: HECTOR YORK RDMS Service: ? Author Type: Report Clerk Type: Progress Notes Filed: 05/16/2025 13:09 Note Text: Radiology Service Progress Note PATIENT NAME: Ananya Bowers DATE OF SERVICE: May 16, 2025 TIME: 1:09 PM PATIENT IDENTITY VERIFICATION COMPLETED USING TWO (2) IDENTIFIERS: Name and Date of confirmed by patient verbally. FALL SCREENING: Has the patient had 2 falls in the last year or 1 fall with injury or currently using an Ambulatory Assistive Device (Walker, Cane, Wheelchair, Crutches, etc.)? No PATIENT GENDER DATA: Assigned female at . status: : No status: NO. PATIENT RELEVANT IMPLANT DATA REVIEWED: Not Applicable PATIENT PRESENTS WITH AN IMPLANTABLE OR ATTACHED CUSTODIAL MAINTENANCE WORKER: No RADIOLOGY DEPARTMENT: Ultrasound PERIPHERAL IV DATA: Not applicable SIGNED BY: Hector York RDMS RVT May 16, 2025 1:09 PM MINDA HERNDONRajan Wang ZOE FITZ Observed: 05/14/2025 10:42 AM Status: F Source: [facility] * * *Final Report* * * DATE OF EXAM: May 14 2025 10:42AM WRW [id number] - MINDA KATRINAG Felipe ZOE FITZ / PROCEDURE REASON: Breast tenderness in female * * * * Physician Interpretation * * * * RESULT: [place] [address] #[id number] - MINDA CEM Wang ZOE FITZ #[id number] - [facility] [employer] BREAST LTD LT #[id number] - [facility] [employer] BREAST LTD RT HISTORY: 59 year-old patient presents for diagnostic evaluation of a palpable abnormality in the right breast. Patient states no personal history of breast cancer. COMPARISON STUDIES: The present examination has been compared to a prior imaging study dated 02/17/2023 (mammogram). MAMMOGRAM TECHNIQUE: The study was acquired using full field digital technology and interpreted from soft copy. Digital Breast Tomosynthesis (DBT) images were obtained and used to assist in the interpretation of this examination. MAMMOGRAM FINDINGS: There are scattered areas of fibroglandular density. No suspicious masses, calcifications or other abnormalities are seen in either breast. There are no significant interval changes. ULTRASOUND TECHNIQUE: Targeted ultrasound of the indicated area was performed. Ochoa scale images were saved. ULTRASOUND FINDINGS: There are no suspicious findings in the imaged areas. There is no sonographic abnormality corresponding with the area of palpable concern right axilla. There is no sonographic abnormality corresponding with the area of focal pain in the left breast. IMPRESSION: There is no mammographic or sonographic evidence of malignancy in either breast. Further management should be based on clinical assessment. Return to annual screening mammogram is recommended. Annual mammogram will be due in 1 year. BI-RADS Category 1: Negative RISK: Based on the Tyrer-Cuzick (TC) risk assessment model, this patient has a 2.8% lifetime risk of developing breast cancer, meaning they are at average risk for developing breast cancer. However, this is only an estimate based on available history provided on the patient's questionnaire. We encourage all patients to talk with their providers about these results, further recommendations for managing breast health, and appropriate supplemental screening options if the patient has dense breast tissue. Interpreting Radiologist: Juanito Golden M.D. Electronically signed on: 05/14/2025 Communications Associate: SAMREEN Transcribe Date/Time: May 14 2025 10:29A Dictated by: JUANITO GOLDEN MD This examination was interpreted and the report reviewed and electronically signed by: JUANITO GOLDEN MD on May 14 2025 12:19PM EST [id number] PROGRESS Observed: 05/14/2025 10:30 AM Status: COMPLETED Source: [facility] Author: LAQUITA WATT Mammo Tech Service: ? Author Type: Boat Washer Type: Progress Notes Filed: 05/14/2025 10:56 Note Text: Radiology Service Progress Note PATIENT NAME: Ananya Bowers DATE OF SERVICE: May 14, 2025 TIME: 10:56 AM PATIENT IDENTITY VERIFICATION COMPLETED USING TWO (2) IDENTIFIERS: Name and Date of confirmed by patient verbally. FALL SCREENING: Has the patient had 2 falls in the last year or 1 fall with injury or currently using an Ambulatory Assistive Device (Walker, Cane, Wheelchair, Crutches, etc.)? No PATIENT GENDER DATA: Assigned female at . status: : No status: NO. PATIENT RELEVANT IMPLANT DATA REVIEWED: Not Applicable PATIENT PRESENTS WITH AN IMPLANTABLE OR ATTACHED CUSTODIAL MAINTENANCE WORKER: No RADIOLOGY DEPARTMENT: Mammography PERIPHERAL IV DATA: Not applicable SIGNED BY: Lo [employer] Song May 14, 2025 10:56 AM TSH SERPL-ACNC Collected: 10:08 AM Status: F Source: [facility] Order Comment: Specimen Type : BLOOD SPECIMEN Ordering Facility: [facility] Address: [address] [place] [address] TYPE CODE TESTS RESULT OUT OF RANGE REFERENCE UNITS LAB 3016-3(LOINC) TSH SerPl-aCnc 1.790 0.270-4.200 mIU/L Performed By: #### 3016-3 ## ## [facility] CLIA [id number] [address] [place] [id number] [place] PROGRESS Observed: 05/13/2025 9:39 AM Status: COMPLETED Source: [facility] HNO ID: [id number] Author: JOSSELINE GILLESPIE, DO Service: ? Author Type: Physician Type: Progress Notes Filed: 05/13/2025 13:42 Note Text: Subjective The patient is a 59-year-old female with HTN presenting to discuss weight loss after starting wellbutrin. Lifestyle: - Denies tobacco or nicotine use since September. Weight loss: - Taking Wellbutrin SR 100 mg once daily; recently resumed after a 3-week lapse. - Converse Wellbutrin was helping before running out. - Noted weight loss while on Wellbutrin; gained weight and increased snacking during the lapse. Hypertension: - Currently on multiple medications for blood pressure management. ALLERGIES Allergen Reactions Prednisone Other: See Comments Heart Racing Current Outpatient Medications Medication Sig Dispense Refill ezetimibe (ZETIA) 10 mg tablet Take 10 mg by mouth once daily. clopidogrel (PLAVIX) 75 mg tablet Take 75 mg by mouth once daily. albuterol HFA (PROVENTIL HFA, VENTOLIN HFA) 90 mcg/actuation inhaler Inhale 2 Puffs as instructed every 4 hours as needed for wheezing/shortness of breath. 18 g 2 hydroCHLOROthiazide 25 mg tablet Take 25 mg by mouth once daily. omeprazole (PRILOSEC) 20 mg capsule Take 1 capsule by mouth every afternoon. calcium-cholecalciferol, D3, (OSCAL+D 250) 250-125 mg-unit per tablet Take 1 tablet by mouth twice daily. 60 tablet 1 isosorbide mononitrate ER (IMDUR) 60 mg 24 [...] ORAL Tab Take 81 mg by mouth. buPROPion SR (WELLBUTRIN SR) 100 mg 12 hr tablet Take 1 tablet by mouth two times a day. 60 tablet 2 No current facility-administered medications for this visit. 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 All medications and supplements were reviewed with the patient. Review of Systems Constitutional: Negative for activity change, appetite change and unexpected weight change. Respiratory: Negative for chest tightness and shortness of breath. Cardiovascular: Negative for chest pain. Gastrointestinal: Negative for abdominal pain. Genitourinary: Negative for difficulty urinating. Musculoskeletal: Negative for arthralgias. Objective BP 108/64 Pulse 62 Temp 36.6 ?C (97.9 ?F) Resp 16 Ht 161.3 cm (5' 3.5) Wt 84.4 kg (186 lb) LMP 08/29/2013 SpO2 97% BMI 32.43 kg/m? Physical Exam Constitutional: Appearance: Normal appearance. She is obese. HENT: Mouth/Throat: Dentition: Normal dentition. Eyes: General: Lids are normal. Conjunctiva/sclera: Conjunctivae normal. Pupils: Pupils are equal, [...] is no abdominal tenderness. Musculoskeletal: General: No tenderness. Normal range of motion. Cervical back: Normal range of motion and neck supple. No edema. Lymphadenopathy: Cervical: No cervical adenopathy. Skin: General: Skin is warm and dry. Findings: No erythema or rash. Nails: There is no clubbing. Neurological: Mental Status: She is alert and oriented to person, place, and time. Cranial Nerves: No cranial nerve deficit. Coordination: Coordination normal. Psychiatric: Judgment: Judgment normal. ASSESSMENT/PLAN: 1. Hypertension, essential - ICD9: 401.9, ICD10: I10 (primary diagnosis) - Controlled - Continue current medications - Recommend home blood pressure monitoring, to bring results to next visit - Encouraged sodium restriction, DASH or Mediterranean diet - Recommend regular aerobic exercise 2. Obesity, Class I, BMI 30-34.9 - ICD9: 278.00, ICD10: E66.811 - continue wellbutrin for appetite control and weight loss assistance - BUPROPION HCL SR 100 MG TABLET,12 HR SUSTAINED-RELEASE - THYROID STIMULATING HORMONE Josseline Sheets, DO The patient consented to the use of [employer] software for draft documentation of the visit consistent with [facility]?s Notice of Privacy Practices. [1] Social History Tobacco Use Smoking status: Former Current packs/day: 0.25 Average packs/day: 0.3 packs/day for 35.0 years (8.8 ttl pk-yrs) Types: Cigarettes Smokeless tobacco: Never Tobacco comments: used to smoke 1 pack Vaping Use Vaping status: Never Used Substance Use Topics Alcohol use: Not Currently Alcohol/week: 2.0 standard drinks of alcohol Types: 2 Cans of Beer (12oz) per week Comment: weekly Drug use: No CNOV Observed: 05/13/2025 9:20 AM Status: COMPLETED Source: [facility] Office Visit (AGFAMPLE) ANANYA BOWERS ([id number]) 1965 F Date Time Provider Department 05/13/25 9:20 AM JOSSELINE GILLESPIE During your visit today, we recorded the following information about you: Temperature Pulse Respiration Blood pressure 97.9 degrees 62/minute 16/minute 108/64 Weight Height 84.4 kg 1.613 m VernaJosseline DO 05/13/2025 1:42 PM Signed Subjective The patient is a 59-year-old female with HTN presenting to discuss weight loss after starting wellbutrin. Lifestyle: - Denies tobacco or nicotine use since September. Weight loss: - Taking Wellbutrin SR 100 mg once daily; recently resumed after a 3-week lapse. - [place] Wellbutrin was helping before running out. - Noted weight loss while on Wellbutrin; gained weight and increased snacking during the lapse. Hypertension: - Currently on multiple medications for blood pressure management. ALLERGIES Allergen Reactions Prednisone Other: See Comments Heart Racing Current Outpatient Medications Medication Sig Dispense Refill ezetimibe (ZETIA) 10 mg tablet Take 10 mg by mouth once daily. clopidogrel (PLAVIX) 75 mg tablet Take 75 mg by mouth once daily. albuterol HFA (PROVENTIL HFA, VENTOLIN HFA) 90 mcg/actuation inhaler Inhale 2 Puffs as instructed every 4 hours as needed for wheezing/shortness of breath. 18 g 2 hydroCHLOROthiazide 25 mg tablet Take 25 mg by mouth once daily. omeprazole (PRILOSEC) 20 mg capsule Take 1 capsule by mouth every afternoon. calcium-cholecalciferol, D3, (OSCAL+D 250) 250-125 mg-unit per tablet Take 1 tablet by mouth twice daily. 60 tablet 1 isosorbide mononitrate ER (IMDUR) 60 mg 24 [...] ORAL Tab Take 81 mg by mouth. buPROPion SR (WELLBUTRIN SR) 100 mg 12 hr tablet Take 1 tablet by mouth two times a day. 60 tablet 2 No current facility-administered medications for this visit. 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 All medications and supplements were reviewed with the patient. Review of Systems Constitutional: Negative for activity change, appetite change and unexpected weight change. Respiratory: Negative for chest tightness and shortness of breath. Cardiovascular: Negative for chest pain. Gastrointestinal: Negative for abdominal pain. Genitourinary: Negative for difficulty urinating. Musculoskeletal: Negative for arthralgias. Objective BP 108/64 Pulse 62 Temp 36.6 ?C (97.9 ?F) Resp 16 Ht 161.3 cm (5' 3.5) Wt 84.4 kg (186 lb) LMP 08/29/2013 SpO2 97% BMI 32.43 kg/m? Physical Exam Constitutional: Appearance: Normal appearance. She is obese. HENT: Mouth/Throat: Dentition: Normal dentition. Eyes: General: Lids are normal. Conjunctiva/sclera: Conjunctivae normal. Pupils: Pupils are equal, [...] is no abdominal tenderness. Musculoskeletal: General: No tenderness. Normal range of motion. Cervical back: Normal range of motion and neck supple. No edema. Lymphadenopathy: Cervical: No cervical adenopathy. Skin: General: Skin is warm and dry. Findings: No erythema or rash. Nails: There is no clubbing. Neurological: Mental Status: She is alert and oriented to person, place, and time. Cranial Nerves: No cranial nerve deficit. Coordination: Coordination normal. Psychiatric: Judgment: Judgment normal. ASSESSMENT/PLAN: 1. Hypertension, essential - ICD9: 401.9, ICD10: I10 (primary diagnosis) - Controlled - Continue current medications - Recommend home blood pressure monitoring, to bring results to next visit - Encouraged sodium restriction, DASH or Mediterranean diet - Recommend regular aerobic exercise 2. Obesity, Class I, BMI 30-34.9 - ICD9: 278.00, ICD10: E66.811 - continue wellbutrin for appetite control and weight loss assistance - BUPROPION HCL SR 100 MG TABLET,12 HR SUSTAINED-RELEASE - THYROID STIMULATING HORMONE Josseline Gillespie, DO The patient consented to the use of [employer] software for draft documentation of the visit consistent with [facility]?s Notice of Privacy Practices. [1] Social History Tobacco Use Smoking status: Former Current packs/day: 0.25 Average packs/day: 0.3 packs/day for 35.0 years (8.8 ttl pk-yrs) Types: Cigarettes Smokeless tobacco: Never Tobacco comments: used to smoke 1 pack Vaping Use Vaping status: Never Used Substance Use Topics Alcohol use: Not Currently Alcohol/week: 2.0 standard drinks of alcohol Types: 2 Cans of Beer (12oz) per week Comment: weekly Drug use: No Allergies As of Date: 05/13/2025 Noted Allergy Reaction PREDNISONE 03/21/2023 14 - Other: See Comments Comments: Heart Racing Date Reviewed: 05/13/2025 Reviewed by: Josseline Gillespie DO - Fully Assessed Reason for Visit: F/U 1 month [1175] Cmt: Weight loss after starting wellbutrin, states she ran out for a couple weeks, did feel like it was helping. Re-started it again yesterday. Primary Visit Diagnosis:Hypertension, essential [I10] Other Visit Diagnosis:Obesity, Class I, BMI 30-34.9 [E66.811] Order(s):buPROPion SR (WELLBUTRIN SR) 100 mg 12 hr tabletTake 1 tablet by mouth two times a day.Disp: 60 tabletRfl: 2 THYROID STIMULATING HORMONE [TS] Order #: [id number] FUTURE Prescriptions as of 05/13/2025 - buPROPion SR (WELLBUTRIN SR) 100 mg 12 hr tablet Take 1 tablet by mouth two times a day. - ezetimibe (ZETIA) 10 mg tablet Take 10 mg by mouth once daily. - clopidogrel (PLAVIX) 75 mg tablet Take 75 mg by mouth once daily. - albuterol HFA (PROVENTIL HFA, VENTOLIN HFA) 90 mcg/actuation inhaler Inhale 2 Puffs as instructed every 4 hours as needed for wheezing/shortness of breath. - hydroCHLOROthiazide 25 mg tablet Take 25 mg by mouth once daily. - omeprazole (PRILOSEC) 20 mg capsule Take 1 capsule by mouth every afternoon. - calcium-cholecalciferol, D3, (OSCAL+D 250) 250-125 mg-unit per tablet Take 1 tablet by mouth twice daily. - isosorbide mononitrate ER (IMDUR) 60 mg 24 hr tablet Take 60 mg by mouth once daily. - acetaminophen (TYLENOL) 500 mg tablet Take 2 tablets by mouth three times daily. - losartan (COZAAR) 100 mg tablet Take 100 mg by mouth once daily. - metoprolol succinate ER (TOPROL XL) 50 mg 24 hr tablet Take 50 mg by mouth once daily. - nitroglycerin sublingual (NITROQUICK) 0.4 mg SL tablet Dissolve 0.4 mg under the tongue every 5 minutes as needed. - dilTIAZem LA (CARDIZEM LA) 240 mg 24 hr tablet Take 240 mg by mouth once daily. - pravastatin (PRAVACHOL) 40 mg tablet Take 40 mg by mouth daily at bedtime. - Aspirin 81 mg ORAL Tab Take 81 mg by mouth. Problem List As Of Date 05/13/2025 Noted Resolved Special screening for malignant neoplasms, colo*10/03/2014 12/02/2016 Abdominal pain, epigastric [R10.13] 10/03/2014 12/02/2016 Obesity, Class I, BMI 30-34.9 [E66.811] 03/27/2018 Acute midline low back pain without sciatica [M*11/16/2018 Closed compression fracture of L2 lumbar verteb*11/16/2018 Lumbar spondylosis [M47.816] 03/07/2019 Degeneration of lumbar intervertebral disc [M51*03/07/2019 Weakness of trunk musculature [M62.81] 03/07/2019 Coronary artery disease of [place] artery of [place]*07/15/2023 SOB (shortness of breath) [R06.02] 07/15/2023 History of heart artery stent [Z95.5] 07/15/2023 Hypertension, essential [I10] 03/25/2025 Prescriptions ordered this encounter Disp Refills Start End BUPROPION HCL SR 100 MG TABLET,12 HR* 60 t* 2 05/13/2025 Route: PO Sig: Take 1 tablet by mouth two times a day. Medications Discontinued During This Encounter Prescriptions - buPROPion SR (WELLBUTRIN SR) 100 mg 12 hr tablet (Discontinued) TAKE 1 TABLET BY MOUTH EVERY MORNING FOR 7 DAYS. THEN TAKE 1 TABLET TWICE DAILY FOR 21 DAYS Disposition: Return in about 3 months (around 08/12/2025) for weight loss on wellbutrin. Follow-up and Disposition History for Encounter Date Provider Department Center 05/13/2025 [id number]-HYEUDCJOSSELINE GILLESPIE [facility] [address] Encounter Status:Closed by JOSSELINE GILLESPIE on 05/13/25 CBC PNL BLD AUTO Collected: 03/25/2025 8:46 AM Statu s: F Source: [facility] Order Comment: Specimen Type : BLOOD SPECIMEN Ordering Facility: [facility] Address: [address] [place] [address] TYPE CODE TESTS RESULT OUT OF RANGE REFERENCE UNITS LAB 6690-2(LOINC) WBC # Bld Auto 8.35 3.70-11.00 k/uL LAB 789-8(LOINC) RBC # Bld Auto 4.11 3.90-5.20 m/ uL LAB 718-7(LOINC) Hgb Bld-mCnc 12.2 11.5-15.5 g/dL LAB 4544-3(LOINC) Hct VFr Bld Auto 36.5 36.0-46.0 % LAB 787-2(LOINC) MCV RBC Auto 88.8 80.0-100.0 fL LAB 785-6(LOINC) MCH RBC Qn Auto 29.7 26.0-34.0 pg LAB 786-4([facility]) MCHC RBC Auto-mCnc 33.4 30.5-36.0 g/dL LAB 84020-5([facility]) RDW RBC-Rto 13.1 11.5-15.0 % LAB 777-3([facility]) Platelet # Bld Auto 278 150-400 k/uL LAB 85367-7([facility]) PMV Bld Auto 9.1 9.0-12.7 fL Performed By: #### 53789-1 # ### [facility] CLIA [id number] [address] [place] [address] OF [facility] COMP METAB 2000 PNL SERPL Collected: 8:46 AM Status: F Source: [facility] Order Comment: Specimen Type : BLOOD SPECIMEN Ordering Facility: [facility] Address: [address] [place] [address] TYPE CODE TESTS RESULT OUT OF RANGE REFERENCE UNITS LAB 2885-2([facility]) Prot SerPl-mCnc 6.8 6.3-8.0 g/dL LAB 1751-7([facility]) Albumin SerPl-mCnc 3.9 3.9-4.9 g/dL LAB 48874-8([facility]) Calcium SerPl-mCnc 9.5 8.5-10.2 mg/dL LAB 1975-2([facility]) Bilirub SerPl-mCnc 0.4 0.2-1.3 mg/dL LAB 6768-6([facility]) ALP SerPl-cCnc 91 34-123 U/L LAB 25863-7([facility]) AST SerPl w P-5'-P-cCnc 16 13-35 U/L LAB 1743-4([facility]) ALT SerPl w P-5'-P-cCnc 15 7-38 U/L LAB 2345-7([facility]) Glucose SerPl-mCnc 97 74-99 mg/dL Result Comment: The [place] Diabetes Association (ADA) provides guidance for cutoff values for fasting glucose and random glucose. The ADA defines fasting as no caloric intake for at least 8 hours. Fasting plasma glucose results between 100 to 125 mg/dL indicate increased risk for diabetes (prediabetes). Fasting plasma glucose results greater than or equal to 126 mg/dL meet the criteria for diagnosis of diabetes. In the absence of unequivocal hyperglycemia, results should be confirmed by repeat testing. In a patient with classic symptoms of hyperglycemia or hyperglycemic crisis, random plasma glucose results greater than or equal to 200 mg/dL meet the criteria for diagnosis of diabetes. Reference: Standards of Medical Care in Diabetes 2016, [place] [employer] Association. Diabetes Care. 2016.39(Suppl 1). LAB 3094-0(LOINC) BUN SerPl-mCnc 23 High 7-21 mg/dL LAB 2160-0(LOINC) Creat SerPl-mCnc 0.80 0.58-0.96 mg/dL LAB 2951-2(LOINC) Sodium SerPl-sCnc 136 136-144 mmol/L LAB 2823-3(LOINC) Potassium SerPl-sCnc 3.8 3.7-5.1 mmol/L LAB 2075-0(LOINC) Chloride SerPl-sCnc 99 98-107 mmol/L LAB 8-9(LOINC) CO2 SerPl-sCnc 26 22-30 mmol/L LAB 03395-9(LOINC) Anion Gap SerPl-sCnc 11 8-15 mmol/L LAB 56337-6(LOINC) eGFRcr SerPlBld CKD-EPI 2020 84 >=60 mL/min/1. 73m??? Result Comment: Estimated Gl omerular Filtration Rate (eGFR) is calculated using the 2020 CKD-EPI creatinine equation. This equation utilizes serum creatinine, sex, and age as parameters. The creatinine assay has traceable calibration to isotope dilution-mass spectrometry. Refer to KDIGO guidelines for clinical interpretation. In patients with unstable renal function, e.g. those with acute kidney injury, the eGFR may not accurately reflect actual GFR. Performed By: #### 33840-2, 45217-7 #### [facility] CLIA [id number] [address] [place] [id number] [place] LIPID 1996 PNL SERPL Collected: 025 8:46 AM Status: F Source: [facility] Order Comment: Specimen Type : BLOOD SPECIMEN Ordering Facility: [facility] Address: [address] [place] [address] TYPE CODE TESTS RESULT OUT OF RANGE REFERENCE UNITS LAB 2093-3(LOINC) Cholest SerPl-mCnc 126 <200 mg/dL Result Comment: <200 mg/dL, Desirable 200-239 mg/dL, Borderline high >239 mg/dL, High LAB 2571-8(LOINC) Trigl SerPl-mCnc 67 <150 mg/dL Result Comment: <150 mg/dL, Normal 150-199 mg/dL, Borderline high 200-499 mg/dL, High >499 mg/dL, Very high LAB 2085-9(LOINC) HDLc SerPl-mCnc 40 >39 mg/dL Result Comment: 40-59 mg/dL, Acceptable >59 mg/dL, High: Negative risk factor for coronary heart disease <40 mg/dL, Low: Positive risk factor for coronary heart disease LAB 2089-1(LOINC) LDLc SerPl-mCnc 72 <100 mg/dL Result Comment: <100 mg/dL, Optimal 100-129 mg/dL, Near optimal/above optimal 130-159 mg/dL, Borderline high 160-189 mg/dL, High >189 mg/dL, Very high Secondary prevention optimal LDL Cholesterol levels are recommended to be <70 mg/dL LDL cholesterol is calculated using the Arizmendi-NIH equation. LAB 52575-7(LOINC) NonHDLc SerPl-mCnc 86 <130 mg/dL Result Comment: <130 mg/dL, Optimal 130-159 mg/dL, Near optimal/above optimal 160-189 mg/dL, Borderline high 190-219 mg/dL, High >219 mg/dL, Very high Secondary prevention optimal non HDL Cholesterol levels are recommended to be <100 mg/dL LAB 45811-0(LOINC) VLDLc SerPl Calc-mCnc 10 <30 mg/dL LAB 9830-1(LOINC) Cholest/HDLc SerPl 3.15 <5.10 LAB 41825-0(LOINC) LDLc/HDLc SerPl 1.80 <2.54 Result Comment: Reference: 1. National Cholesterol Education Program ATP III Guideline At-A-Glance Quick Desk Reference: National Heart, Lung, and Blood [place]. National Institutes of Health. 2001: NIH Publication No. 01-3305. 2. An International Atherosclerosis Society position paper: global recommendations for the management of dyslipidemia: executive summary, Atherosclerosis. 2014: 232(2):410-413. LAB FT FASTING TIME 12 hrs Performed By: #### 45447-2, 99113-2 #### [facility] CLIA [id number] [address] [place] [id number] [place] PRO[place] Observed: 03/25/2025 8:21 AM Status: COMPLETED Source: [facility] HNO ID: [id number] Author: JOSSELINE GILLESPIE, DO Service: ? Author Type: Physician Type: Progress Notes Filed: 04/15/2025 20:33 Note Text: Subjective Ananya Bowers is a 59 year old female here for a wellness exam She feels like the right underarm has a bulge that starts to hurt When she takes off her bra it occasionally relieves the discomfort She would like to lose weight Walks regularly for exercise ALLERGIES Allergen Reactions Prednisone Other: See Comments Heart Racing Current Outpatient Medications Medication Sig Dispense Refill ezetimibe (ZETIA) 10 mg tablet Take 10 mg by mouth once daily. clopidogrel (PLAVIX) 75 mg tablet Take 75 mg by mouth once daily. albuterol HFA (PROVENTIL HFA, VENTOLIN HFA) 90 mcg/actuation inhaler Inhale 2 Puffs as instructed every 4 hours as needed for wheezing/shortness of breath. 18 g 2 hydroCHLOROthiazide 25 mg tablet Take 25 mg by mouth once daily. omeprazole (PRILOSEC) 20 mg capsule Take 1 capsule by mouth every afternoon. benzonatate (TESSALON PERLES) 100 mg capsule Take 1-2 capsules by mouth three times daily as needed. 45 capsule 0 calcium-cholecalciferol, D3, (OSCAL+D 250) 250-125 mg-unit per tablet Take 1 tablet by mouth twice daily. 60 tablet 1 isosorbide mononitrate ER (IMDUR) 60 mg 24 [...] ORAL Tab Take 81 mg by mouth. ibuprofen (MOTRIN) 800 mg tablet Take 1 tablet by mouth every 8 hours as needed for Pain. (Patient not taking: Reported on 03/25/2025) 30 tablet 0 No current facility-administered medications for this visit. ACTIVE PROBLEM LIST Obesity, Class I, Bmi 30-34.9 Acute Midline Low Back Pain Without Sciatica Closed Compression Fracture of L2 Lumbar Vertebra, Sequela Lumbar Spondylosis Degeneration of Lumbar Intervertebral Disc Weakness of Trunk Musculature Coronary Artery Disease of [place] Artery of [place] Heart With Stable Angina Pectoris Sob (Shortness of Breath) History of Heart Artery Stent Social History Tobacco Use Smoking status: Former Current packs/day: 0.25 Average packs/day: 0.3 packs/day for 35.0 years (8.8 ttl pk-yrs) Types: Cigarettes Smokeless tobacco: Never Tobacco comments: used to smoke 1 pack Vaping Use Vaping status: Never Used Substance Use Topics Alcohol use: Not Currently Alcohol/week: 2.0 standard drinks of alcohol Types: 2 Cans of Beer (12oz) per week Comment: weekly Drug use: No Family History Problem Relation Age of Onset Cancer Brother 47 ?lung - Heart disease Mother Heart disease Father Cancer 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 All medications and supplements were reviewed with the patient. HPI Review of Systems Constitutional: Negative for activity change, appetite change and unexpected weight change. Respiratory: Negative for chest tightness and shortness of breath. Cardiovascular: Negative for chest pain. Gastrointestinal: Negative for abdominal pain. Genitourinary: Negative for difficulty urinating. Musculoskeletal: Negative for arthralgias. Right underarm discomfort Objective BP 112/68 Pulse (!) 59 Temp 36.6 ?C (97.8 ?F) Resp 16 Ht 161.3 cm (5' 3.5) Wt 85.7 kg (189 lb) LMP 08/29/2013 SpO2 97% BMI 32.95 kg/m? Physical Exam Constitutional: Appearance: Normal appearance. HENT: Mouth/Throat: Dentition: Normal dentition. Eyes: General: Lids are normal. Conjunctiva/sclera: Conjunctivae normal. Pupils: Pupils are equal, [...] is no abdominal tenderness. Musculoskeletal: General: No tenderness. Normal range of motion. Cervical back: Normal range of motion and neck supple. No edema. Comments: No mass, tenderness or erythema of the right axilla Lymphadenopathy: Cervical: No cervical adenopathy. Skin: General: Skin is warm and dry. Findings: No erythema or rash. Nails: There is no clubbing. Neurological: Mental Status: She is alert and oriented to person, place, and time. Cranial Nerves: No cranial nerve deficit. Coordination: Coordination normal. Psychiatric: Judgment: Judgment normal. Breast exam: breasts symmetric, no mass palpated in breasts or axilla, no erythema, skin changes or tenderness ASSESSMENT/PLAN: 1. Well adult exam - ICD9: V70.0, ICD10: Z00.00 (primary diagnosis) - Counseled on healthy diet and regular exercise 2. Hypertension, essential - ICD9: 401.9, ICD10: I10 - Controlled - Continue current medications - Recommend home blood pressure monitoring, to bring results to next visit - Encouraged sodium restriction, DASH or Mediterranean diet - Recommend regular aerobic exercise 3. Breast tenderness in female - ICD9: 611.71, ICD10: N64.4 - MINDA DIAG W ZOE BILATERAL - US BREAST LTD RIGHT 4. Coronary artery disease of [place] artery of [place] heart with stable angina pectoris - ICD9: 414.01, 413.9, ICD10: I25.118 - LIPID PANEL, FASTING - COMPREHENSIVE METABOLIC PANEL - COMPLETE BLOOD COUNT 5. Obesity, Class I, BMI 30-34.9 - ICD9: 278.00, ICD10: E66.811 Lifestyle modification recommended DO CARTER Otero Observed: 03/25/2025 8:00 AM Status: COMPLETED Source: [facility] Office Visit (JORGEMPLE) ROBINSONANYA WEIRANANYA L ([id number]) 1965 F Date Time Provider Department 03/25/25 8:00 AM JOSSELINE GILLESPIE During your visit today, we recorded the following information about you: Temperature Pulse Respiration Blood pressure 97.8 degrees 59/minute 16/minute 112/68 Weight Height 85.7 kg 1.613 m Josseline Gillespie DO 04/15/2025 8:33 PM Signed Subjective Ananya Maguire Robinson is a 59 year old female here for a wellness exam She feels like the right underarm has a bulge that starts to hurt When she takes off her bra it occasionally relieves the discomfort She would like to lose weight Walks regularly for exercise ALLERGIES Allergen Reactions Prednisone Other: See Comments Heart Racing Current Outpatient Medications Medication Sig Dispense Refill ezetimibe (ZETIA) 10 mg tablet Take 10 mg by mouth once daily. clopidogrel (PLAVIX) 75 mg tablet Take 75 mg by mouth once daily. albuterol HFA (PROVENTIL HFA, VENTOLIN HFA) 90 mcg/actuation inhaler Inhale 2 Puffs as instructed every 4 hours as needed for wheezing/shortness of breath. 18 g 2 hydroCHLOROthiazide 25 mg tablet Take 25 mg by mouth once daily. omeprazole (PRILOSEC) 20 mg capsule Take 1 capsule by mouth every afternoon. benzonatate (TESSALON PERLES) 100 mg capsule Take 1-2 capsules by mouth three times daily as needed. 45 capsule 0 calcium-cholecalciferol, D3, (OSCAL+D 250) 250-125 mg-unit per tablet Take 1 tablet by mouth twice daily. 60 tablet 1 isosorbide mononitrate ER (IMDUR) 60 mg 24 [...] ORAL Tab Take 81 mg by mouth. ibuprofen (MOTRIN) 800 mg tablet Take 1 tablet by mouth every 8 hours as needed for Pain. (Patient not taking: Reported on 03/25/2025) 30 tablet 0 No current facility-administered medications for this visit. ACTIVE PROBLEM LIST Obesity, Class I, Bmi 30-34.9 Acute Midline Low Back Pain Without Sciatica Closed Compression Fracture of L2 Lumbar Vertebra, Sequela Lumbar Spondylosis Degeneration of Lumbar Intervertebral Disc Weakness of Trunk Musculature Coronary Artery Disease of [place] Artery of [place] Heart With Stable Angina Pectoris Sob (Shortness of Breath) History of Heart Artery Stent Social History Tobacco Use Smoking status: Former Current packs/day: 0.25 Average packs/day: 0.3 packs/day for 35.0 years (8.8 ttl pk-yrs) Types: Cigarettes Smokeless tobacco: Never Tobacco comments: used to smoke 1 pack Vaping Use Vaping status: Never Used Substance Use Topics Alcohol use: Not Currently Alcohol/week: 2.0 standard drinks of alcohol Types: 2 Cans of Beer (12oz) per week Comment: weekly Drug use: No Family History Problem Relation Age of Onset Cancer Brother 47 ?lung - Heart disease Mother Heart disease Father Cancer 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 All medications and supplements were reviewed with the patient. HPI Review of Systems Constitutional: Negative for activity change, appetite change and unexpected weight change. Respiratory: Negative for chest tightness and shortness of breath. Cardiovascular: Negative for chest pain. Gastrointestinal: Negative for abdominal pain. Genitourinary: Negative for difficulty urinating. Musculoskeletal: Negative for arthralgias. Right underarm discomfort Objective BP 112/68 Pulse (!) 59 Temp 36.6 ?C (97.8 ?F) Resp 16 Ht 161.3 cm (5' 3.5) Wt 85.7 kg (189 lb) LMP 08/29/2013 SpO2 97% BMI 32.95 kg/m? Physical Exam Constitutional: Appearance: Normal appearance. HENT: Mouth/Throat: Dentition: Normal dentition. Eyes: General: Lids are normal. Conjunctiva/sclera: Conjunctivae normal. Pupils: Pupils are equal, [...] is no abdominal tenderness. Musculoskeletal: General: No tenderness. Normal range of motion. Cervical back: Normal range of motion and neck supple. No edema. Comments: No mass, tenderness or erythema of the right axilla Lymphadenopathy: Cervical: No cervical adenopathy. Skin: General: Skin is warm and dry. Findings: No erythema or rash. Nails: There is no clubbing. Neurological: Mental Status: She is alert and oriented to person, place, and time. Cranial Nerves: No cranial nerve deficit. Coordination: Coordination normal. Psychiatric: Judgment: Judgment normal. Breast exam: breasts symmetric, no mass palpated in breasts or axilla, no erythema, skin changes or tenderness ASSESSMENT/PLAN: 1. Well adult exam - ICD9: V70.0, ICD10: Z00.00 (primary diagnosis) - Counseled on healthy diet and regular exercise 2. Hypertension, essential - ICD9: 401.9, ICD10: I10 - Controlled - Continue current medications - Recommend home blood pressure monitoring, to bring results to next visit - Encouraged sodium restriction, DASH or Mediterranean diet - Recommend regular aerobic exercise 3. Breast tenderness in female - ICD9: 611.71, ICD10: N64.4 - MINDA DIAG W ZOE BILATERAL - US BREAST LTD RIGHT 4. Coronary artery disease of [place] artery of [place] heart with stable angina pectoris - ICD9: 414.01, 413.9, ICD10: I25.118 - LIPID PANEL, FASTING - COMPREHENSIVE METABOLIC PANEL - COMPLETE BLOOD COUNT 5. Obesity, Class I, BMI 30-34.9 - ICD9: 278.00, ICD10: E66.811 Lifestyle modification recommended Josseline Gillespie DO Referring Provider: JOSSELINE GILLESPIE [[id number]] Allergies As of Date: 03/25/2025 Noted Allergy Reaction PREDNISONE 03/21/2023 14 - Other: See Comments Comments: Heart Racing Date Reviewed: 03/25/2025 Reviewed by: Josseline Gillespie DO - Fully Assessed Reason for Visit: Lump [73910] Cmt: Under right side of arm states it happened a couple years ago and she did a mammogram but there was nothing there. States it still gets puffy there off and on. Weight Loss [882] Cmt: Would like to discuss weight loss options. Has been trying diet and exercise, quit smoking and drinking in September but has been trouble. Well Adult [611] Primary Visit Diagnosis:Well adult exam [Z00.00] Other Visit Diagnoses:Hypertension, essential [I10] Breast tenderness in female [N64.4] Coronary artery disease of [place] artery of [place] heart with stable angina pectoris [I25.118] Obesity, Class I, BMI 30-34.9 [E66.811] Order(s):LIPID PANEL, FASTING [SQLIPB] Order #: [id number] FUTURE COMPREHENSIVE METABOLIC PANEL [SQCMP] Order #: [id number] FUTURE COMPLETE BLOOD COUNT [SQCBC] Order #: [id number] FUTURE [facility] DIAG W ZOE BILATERAL [[id number]] Order #: [id number] FUTURE BREAST LTD RIGHT [[id number]] Order #: [id number] FUTURE Prescriptions as of 04/15/2025 - buPROPion SR (WELLBUTRIN SR) 100 mg 12 hr tablet TAKE 1 TABLET BY MOUTH EVERY MORNING FOR 7 DAYS. THEN TAKE 1 TABLET TWICE DAILY FOR 21 DAYS - ezetimibe (ZETIA) 10 mg tablet Take 10 mg by mouth once daily. - clopidogrel (PLAVIX) 75 mg tablet Take 75 mg by mouth once daily. - albuterol HFA (PROVENTIL HFA, VENTOLIN HFA) 90 mcg/actuation inhaler Inhale 2 Puffs as instructed every 4 hours as needed for wheezing/shortness of breath. - hydroCHLOROthiazide 25 mg tablet Take 25 mg by mouth once daily. - omeprazole (PRILOSEC) 20 mg capsule Take 1 capsule by mouth every afternoon. - calcium-cholecalciferol, D3, (OSCAL+D 250) 250-125 mg-unit per tablet Take 1 tablet by mouth twice daily. - isosorbide mononitrate ER (IMDUR) 60 mg 24 hr tablet Take 60 mg by mouth once daily. - acetaminophen (TYLENOL) 500 mg tablet Take 2 tablets by mouth three times daily. - losartan (COZAAR) 100 mg tablet Take 100 mg by mouth once daily. - metoprolol succinate ER (TOPROL XL) 50 mg 24 hr tablet Take 50 mg by mouth once daily. - nitroglycerin sublingual (NITROQUICK) 0.4 mg SL tablet Dissolve 0.4 mg under the tongue every 5 minutes as needed. - dilTIAZem LA (CARDIZEM LA) 240 mg 24 hr tablet Take 240 mg by mouth once daily. - pravastatin (PRAVACHOL) 40 mg tablet Take 40 mg by mouth daily at bedtime. - Aspirin 81 mg ORAL Tab Take 81 mg by mouth. Problem List As Of Date 03/25/2025 Noted Resolved Special screening for malignant neoplasms, colo*10/03/2014 12/02/2016 Abdominal pain, epigastric [R10.13] 10/03/2014 12/02/2016 Obesity, Class I, BMI 30-34.9 [E66.811] 03/27/2018 Acute midline low back pain without sciatica [M*11/16/2018 Closed compression fracture of L2 lumbar verteb*11/16/2018 Lumbar spondylosis [M47.816] 03/07/2019 Degeneration of lumbar intervertebral disc [M51*03/07/2019 Weakness of trunk musculature [M62.81] 03/07/2019 Coronary artery disease of [place] artery of gabe*07/15/2023 SOB (shortness of breath) [R06.02] 07/15/2023 History of heart artery stent [Z95.5] 07/15/2023 Hypertension, essential [I10] 03/25/2025 Prescriptions ordered this encounter Disp Refills Start End BUPROPION HCL SR 100 MG TABLET,12 HR* 49 t* 0 03/25/2025 04/12/2025 Route: PO Sig: Take 1 tablet by mouth every morning for 7 days, THEN 1 tablet two times a day for 21 days. Medications Discontinued During This Encounter Prescriptions - ibuprofen (MOTRIN) 800 mg tablet (Discontinued) Reported on 03/25/2025 - benzonatate (TESSALON PERLES) 100 mg capsule (Discontinued) Take 1-2 capsules by mouth three times daily as needed. Disposition: Return in about 4 weeks (around 04/22/2025) for weight loss after starting wellbutrin. Follow-up and Disposition History for Encounter Date Provider Department Center 03/25/2025 [id number] GILLESPIE [employer] [facility] [address] Encounter Status:Closed by JOSSELINE GILLESPIE on 04/15/25 CNPN Observed: 03/15/2025 12:00 AM Status: COMPLETED Source: [facility] Telephone ([employer]) ANANYA BOWERS ([id number]) 1965 F Date Time Provider Department 03/15/25 JOSSELINE GILLESPIE During your visit today, we recorded the following information about you: Carey Bland 03/15/2025 4:06 PM Signed Pt would like a new order for a mammogram. She would like a diagnostic mammogram order for lump right side under arm. Please advise pt? Josseline Gillespie DO 03/15/2025 4:30 PM Signed Please have pt make appt for appt before I can put in order DO Bailey Otero Mary, MA 03/15/2025 4:38 PM Signed Please help assist scheduling appointment for patient. Thank you. SUSANNAH Mcwilliams Mary, MA 03/18/2025 3:06 PM Signed Pt needs appointment scheduled to look up lump on right side under arm. Thanks. Allergies As of Date: 03/15/2025 Noted Allergy Reaction PREDNISONE 03/21/2023 14 - Other: See Comments Comments: Heart Racing Date Reviewed: 05/17/2024 Reviewed by: Josseline Gillespie DO - Fully Assessed Reason for Visit: mammogram order [Other] Cmt: Pateint would like a new mammogram order Prescriptions as of 03/18/2025 - ezetimibe (ZETIA) 10 mg tablet Take 10 mg by mouth once daily. - clopidogrel (PLAVIX) 75 mg tablet TAKE 4 TABLETS all at once on 08/06/2023 for loading dose then TAKE 1 TABLET BY MOUTH DAILY - albuterol HFA (PROVENTIL HFA, VENTOLIN HFA) 90 mcg/actuation inhaler Inhale 2 Puffs as instructed every 4 hours as needed for wheezing/shortness of breath. - hydroCHLOROthiazide 25 mg tablet Take 25 mg by mouth once daily. - omeprazole (PRILOSEC) 20 mg capsule Take 1 capsule by mouth every afternoon. - benzonatate (TESSALON PERLES) 100 mg capsule Take 1-2 capsules by mouth three times daily as needed. - calcium-cholecalciferol, D3, (OSCAL+D 250) 250-125 mg-unit per tablet Take 1 tablet by mouth twice daily. - ibuprofen (MOTRIN) 800 mg tablet Take 1 tablet by mouth every 8 hours as needed for Pain. - isosorbide mononitrate ER (IMDUR) 60 mg 24 hr tablet Take 60 mg by mouth once daily. - acetaminophen (TYLENOL) 500 mg tablet Take 2 tablets by mouth three times daily. - losartan (COZAAR) 100 mg tablet Take 100 mg by mouth once daily. - metoprolol succinate ER (TOPROL XL) 50 mg 24 hr tablet Take 50 mg by mouth once daily. - nitroglycerin sublingual (NITROQUICK) 0.4 mg SL tablet Dissolve 0.4 mg under the tongue every 5 minutes as needed. - dilTIAZem LA (CARDIZEM LA) 240 mg 24 hr tablet Take 240 mg by mouth once daily. - pravastatin (PRAVACHOL) 40 mg tablet Take 40 mg by mouth daily at bedtime. - Aspirin 81 mg ORAL Tab Take 81 mg by mouth. Problem List As Of Date 03/15/2025 Noted Resolved Special screening for malignant neoplasms, colo*10/03/2014 12/02/2016 Abdominal pain, epigastric [R10.13] 10/03/2014 12/02/2016 Obesity, Class I, BMI 30-34.9 [E66.811] 03/27/2018 Acute midline low back pain without sciatica [M*11/16/2018 Closed compression fracture of L2 lumbar verteb*11/16/2018 Lumbar spondylosis [M47.816] 03/07/2019 Degeneration of lumbar intervertebral disc [M51*03/07/2019 Weakness of trunk musculature [M62.81] 03/07/2019 Coronary artery disease of [place] artery of gabe*07/15/2023 SOB (shortness of breath) [R06.02] 07/15/2023 History of heart artery stent [Z95.5] 07/15/2023 Encounter Status:Closed by CAREY BLAND on 03/15/25 CNPTOUTREACH Observed: 01/15/2025 12:00 AM Status: COMPLETED Source: [facility] Patient Outreach ([employer]) ANANYA BOWERS ([id number]) 1965 F Date Time Provider Department 01/15/25 JOSSELINE GILLESPIE During your visit today, we recorded the following information about you: Allergies As of Date: 01/15/2025 Noted Allergy Reaction PREDNISONE 03/21/2023 14 - Other: See Comments Comments: Heart Racing Date Reviewed: 05/17/2024 Reviewed by: Josseline Gillespie, DO - Fully Assessed Visit Diagnosis:Encounter for screening mammogram for breast cancer [Z12.31] Order(s):MINDA ENRIQUEZ [[id number]] Order #: [id number] FUTURE Prescriptions as of 02/15/2025 - ezetimibe (ZETIA) 10 mg tablet Take 10 mg by mouth once daily. - clopidogrel (PLAVIX) 75 mg tablet TAKE 4 TABLETS all at once on 08/06/2023 for loading dose then TAKE 1 TABLET BY MOUTH DAILY - albuterol HFA (PROVENTIL HFA, VENTOLIN HFA) 90 mcg/actuation inhaler Inhale 2 Puffs as instructed every 4 hours as needed for wheezing/shortness of breath. - hydroCHLOROthiazide 25 mg tablet Take 25 mg by mouth once daily. - omeprazole (PRILOSEC) 20 mg capsule Take 1 capsule by mouth every afternoon. - benzonatate (TESSALON PERLES) 100 mg capsule Take 1-2 capsules by mouth three times daily as needed. - calcium-cholecalciferol, D3, (OSCAL+D 250) 250-125 mg-unit per tablet Take 1 tablet by mouth twice daily. - ibuprofen (MOTRIN) 800 mg tablet Take 1 tablet by mouth every 8 hours as needed for Pain. - isosorbide mononitrate ER (IMDUR) 60 mg 24 hr tablet Take 60 mg by mouth once daily. - acetaminophen (TYLENOL) 500 mg tablet Take 2 tablets by mouth three times daily. - losartan (COZAAR) 100 mg tablet Take 100 mg by mouth once daily. - metoprolol succinate ER (TOPROL XL) 50 mg 24 hr tablet Take 50 mg by mouth once daily. - nitroglycerin sublingual (NITROQUICK) 0.4 mg SL tablet Dissolve 0.4 mg under the tongue every 5 minutes as needed. - dilTIAZem LA (CARDIZEM LA) 240 mg 24 hr tablet Take 240 mg by mouth once daily. - pravastatin (PRAVACHOL) 40 mg tablet Take 40 mg by mouth daily at bedtime. - Aspirin 81 mg ORAL Tab Take 81 mg by mouth. Problem List As Of Date 01/15/2025 Noted Resolved Special screening for malignant neoplasms, colo*10/03/2014 12/02/2016 Abdominal pain, epigastric [R10.13] 10/03/2014 12/02/2016 Obesity, Class I, BMI 30-34.9 [E66.811] 03/27/2018 Acute midline low back pain without sciatica [M*11/16/2018 Closed compression fracture of L2 lumbar verteb*11/16/2018 Lumbar spondylosis [M47.816] 03/07/2019 Degeneration of lumbar intervertebral disc [M51*03/07/2019 Weakness of trunk musculature [M62.81] 03/07/2019 Coronary artery disease of [place] artery of gabe*07/15/2023 SOB (shortness of breath) [R06.02] 07/15/2023 History of heart artery stent [Z95.5] 07/15/2023 Encounter Status:Closed by BAYRON BENITES on 02/15/25 DANIELE Observed: 07/24/2024 12:00 AM Status: COMPLETED Source: [facility] Telephone ([employer]) ANANYA BOWERS ([id number]) 1965 F Date Time Provider Department 07/24/24 JOSSELINE GILLESPIE During your visit today, we recorded the following information about you: Josseline Gillespie DO 07/24/2024 2:28 PM Signed Please call pt- her CT chest shows emphysema. I would like for her to see a lung specialist. I will refer her to Dr. Dawn in [place] - attached DO Bailey Otero Mary, MA 07/25/2024 8:30 AM Signed Patient notified. Enedina Vilchsi MA Allergies As of Date: 07/24/2024 Noted Allergy Reaction PREDNISONE 03/21/2023 14 - Other: See Comments Comments: Heart Racing Date Reviewed: 05/17/2024 Reviewed by: Josseline Gillespie DO - Fully Assessed Reason for Visit: Results [95] Primary Visit Diagnosis:Other emphysema (HCC) [J43.8] Order(s):CONSULT TO PULM/CRITICAL CARE [[id number]] Order #: [id number]: 1 FUTURE Prescriptions as of 07/25/2024 - ezetimibe (ZETIA) 10 mg tablet Take 10 mg by mouth once daily. - clopidogrel (PLAVIX) 75 mg tablet TAKE 4 TABLETS all at once on 08/06/2023 for loading dose then TAKE 1 TABLET BY MOUTH DAILY - albuterol HFA (PROVENTIL HFA, VENTOLIN HFA) 90 mcg/actuation inhaler Inhale 2 Puffs as instructed every 4 hours as needed for wheezing/shortness of breath. - hydroCHLOROthiazide 25 mg tablet Take 25 mg by mouth once daily. - omeprazole (PRILOSEC) 20 mg capsule Take 1 capsule by mouth every afternoon. - benzonatate (TESSALON PERLES) 100 mg capsule Take 1-2 capsules by mouth three times daily as needed. - calcium-cholecalciferol, D3, (OSCAL+D 250) 250-125 mg-unit per tablet Take 1 tablet by mouth twice daily. - ibuprofen (MOTRIN) 800 mg tablet Take 1 tablet by mouth every 8 hours as needed for Pain. - isosorbide mononitrate ER (IMDUR) 60 mg 24 hr tablet Take 60 mg by mouth once daily. - acetaminophen (TYLENOL) 500 mg tablet Take 2 tablets by mouth three times daily. - losartan (COZAAR) 100 mg tablet Take 100 mg by mouth once daily. - metoprolol succinate ER (TOPROL XL) 50 mg 24 hr tablet Take 50 mg by mouth once daily. - nitroglycerin sublingual (NITROQUICK) 0.4 mg SL tablet Dissolve 0.4 mg under the tongue every 5 minutes as needed. - dilTIAZem LA (CARDIZEM LA) 240 mg 24 hr tablet Take 240 mg by mouth once daily. - pravastatin (PRAVACHOL) 40 mg tablet Take 40 mg by mouth daily at bedtime. - Aspirin 81 mg ORAL Tab Take 81 mg by mouth. Problem List As Of Date 07/24/2024 Noted Resolved Special screening for malignant neoplasms, colo*10/03/2014 12/02/2016 Abdominal pain, epigastric [R10.13] 10/03/2014 12/02/2016 Obesity, Class I, BMI 30-34.9 [E66.811] 03/27/2018 Acute midline low back pain without sciatica [M*11/16/2018 Closed compression fracture of L2 lumbar verteb*11/16/2018 Lumbar spondylosis [M47.816] 03/07/2019 Degeneration of lumbar intervertebral disc [M51*03/07/2019 Weakness of trunk musculature [M62.81] 03/07/2019 Coronary artery disease of [place] artery of gabe*07/15/2023 SOB (shortness of breath) [R06.02] 07/15/2023 History of heart artery stent [Z95.5] 07/15/2023 Encounter Status:Closed by ANTELMOFRANSISCOENEDINA ANDERSON on 07/25/24 CT CHEST WO IVCON Observed: 07/13/2024 10:02 AM Status: F Source: [facility] * * *Final Report* * * DATE OF EXAM: Jul 13 2024 10:02AM [facility] 0541 - CT CHEST WO IVCON / PROCEDURE REASON: Lung nodule seen on imaging study * * * * Physician Interpretation * * * * EXAMINATION: CHEST CT WITHOUT CONTRAST CLINICAL HISTORY: Lung nodule Technique: Spiral CT acquisition of the chest from the thoracic inlet to the upper abdomen without contrast. MQ: [id number] CT Radiation dose: Integrated Dose-length product (DLP) for this visit = 423.10 mGy*cm CT Dose Reduction Employed: Automated exposure control(AEC) and iterative recon Comparison: 05/23/2023 RESULT: Limitations: None. Lines, tubes, and devices: None. Lung parenchyma and airways: There is dependent atelectasis. There is emphysema, with mild, diffuse bronchiectasis. There is no pneumothorax or endobronchial lesion. There are stable subcentimeter pulmonary nodules. For example, there is a stable, approximately 3 mm subpleural nodule seen within the anterior segment left upper lobe (series 2, image #41). There is a stable, approximately 3 mm nodule seen within the anterior segment right upper lobe. Mild regions of mucoid impaction are seen within both lungs, a few which have developed in the interval. There is no pneumothorax or endobronchial lesion. Pleural space: There is no pleural effusion. Lower neck, lymph nodes, and mediastinum: There are prominent, less than 1 cm mediastinal lymph nodes, likely reactive. No ponce axillary or hilar lymphadenopathy is identified. Heart, pericardium, and thoracic vessels: There is a small hiatal hernia. Atherosclerotic calcifications are present within the thoracic aorta and coronary arteries. The heart is normal in size. There is no significant pericardial effusion. Bones and soft tissues: There is multilevel degenerative change seen within the visualized spine. Loose body about the left shoulder. Stable mild anterior wedging of the T3 vertebral body. Upper abdomen: Contents are seen within the stomach. There is mild, nonspecific bilateral perinephric fat stranding. The gallbladder is relatively collapsed but is otherwise unremarkable. Prominent, less than 1 cm abdominal lymph nodes are likely reactive. IMPRESSION: 1. Emphysema, with mild, diffuse bronchiectasis. Stable subcentimeter pulmonary nodules, measuring up to 3 mm in size. Mild regions of mucoid impaction are seen within both lungs, a few which have developed in the interval. 2. Prominent, less than 1 cm mediastinal lymph nodes, likely reactive. Communications Associate: PSCB Transcribe Date/Time: Jul 17 2024 8:54A Dictated by : LAURA MALLOY MD This examination was interpreted and the report reviewed and electronically signed by: LAURA MALLOY MD on Jul 17 2024 4:26PM EST [id number] Observed: 07/13/2024 10:00 AM Status: COMPLETED Source: [facility] HNO ID: [id number] Author: ZAC DAVALOS CT Service: Radiology Author Type: Technologist Type: Progress Notes Filed: 07/13/2024 10:18 Note Text: Radiology Service Progress Note PATIENT NAME: Ananya Bowers DATE OF SERVICE: July 13, 2024 TIME: 10:17 AM PATIENT IDENTITY VERIFICATION COMPLETED USING TWO (2) IDENTIFIERS: Name and Date of confirmed by patient verbally. FALL SCREENING: Has the patient had 2 falls in the last year or 1 fall with injury or currently using an Ambulatory Assistive Device (Walker, Cane, Wheelchair, Crutches, etc.)? No PATIENT GENDER DATA: Female. status: : No status: NO. PATIENT RELEVANT IMPLANT DATA REVIEWED: Not Applicable PATIENT PRESENTS WITH AN IMPLANTABLE OR ATTACHED CUSTODIAL MAINTENANCE WORKER: No RADIOLOGY DEPARTMENT: CT; Exam(s) Completed: Chest PERIPHERAL IV DATA: Not applicable SIGNED BY: TRA Huerta July 13, 2024 10:17 AM CNPN Observed: 06/01/2024 12:00 AM Status: COMPLETED Source: [facility] Telephone ([employer]) ANANYA BOWERS ([id number]) 1965 F Date Time Provider Department 06/01/24 JOSSELINE GILLESPIE During your visit today, we recorded the following information about you: Edelmira Mayer MA 06/01/2024 7:57 AM Signed ----- Message from Christine Abraham MA sent at 05/18/2024 3:36 PM EDT ----- uA in 2 weeks Christine Flores MA Allergies As of Date: 06/01/2024 Noted Allergy Reaction PREDNISONE 03/21/2023 14 - Other: See Comments Comments: Heart Racing Date Reviewed: 05/17/2024 Reviewed by: Josseline Gillespie DO - Fully Assessed Reason for Visit: Lab Orders [7088] Prescriptions as of 06/02/2024 - ezetimibe (ZETIA) 10 mg tablet Take 10 mg by mouth once daily. - clopidogrel (PLAVIX) 75 mg tablet TAKE 4 TABLETS all at once on 08/06/2023 for loading dose then TAKE 1 TABLET BY MOUTH DAILY - albuterol HFA (PROVENTIL HFA, VENTOLIN HFA) 90 mcg/actuation inhaler Inhale 2 Puffs as instructed every 4 hours as needed for wheezing/shortness of breath. - hydroCHLOROthiazide 25 mg tablet Take 25 mg by mouth once daily. - omeprazole (PRILOSEC) 20 mg capsule Take 1 capsule by mouth every afternoon. - benzonatate (TESSALON PERLES) 100 mg capsule Take 1-2 capsules by mouth three times daily as needed. - calcium-cholecalciferol, D3, (OSCAL+D 250) 250-125 mg-unit per tablet Take 1 tablet by mouth twice daily. - ibuprofen (MOTRIN) 800 mg tablet Take 1 tablet by mouth every 8 hours as needed for Pain. - isosorbide mononitrate ER (IMDUR) 60 mg 24 hr tablet Take 60 mg by mouth once daily. - acetaminophen (TYLENOL) 500 mg tablet Take 2 tablets by mouth three times daily. - losartan (COZAAR) 100 mg tablet Take 100 mg by mouth once daily. - metoprolol succinate ER (TOPROL XL) 50 mg 24 hr tablet Take 50 mg by mouth once daily. - nitroglycerin sublingual (NITROQUICK) 0.4 mg SL tablet Dissolve 0.4 mg under the tongue every 5 minutes as needed. - dilTIAZem LA (CARDIZEM LA) 240 mg 24 hr tablet Take 240 mg by mouth once daily. - pravastatin (PRAVACHOL) 40 mg tablet Take 40 mg by mouth daily at bedtime. - Aspirin 81 mg ORAL Tab Take 81 mg by mouth. Problem List As Of Date 06/01/2024 Noted Resolved Special screening for malignant neoplasms, colo*10/03/2014 12/02/2016 Abdominal pain, epigastric [R10.13] 10/03/2014 12/02/2016 Obesity, Class I, BMI 30-34.9 [E66.811] 03/27/2018 Acute midline low back pain without sciatica [M*11/16/2018 Closed compression fracture of L2 lumbar verteb*11/16/2018 Lumbar spondylosis [M47.816] 03/07/2019 Degeneration of lumbar intervertebral disc [M51*03/07/2019 Weakness of trunk musculature [M62.81] 03/07/2019 Coronary artery disease of [place] artery of gabe*07/15/2023 SOB (shortness of breath) [R06.02] 07/15/2023 History of heart artery stent [Z95.5] 07/15/2023 Encounter Status:Closed by JOSSELINE GILLESPIE on 06/02/24 ALLERGIES DATE TYPE / CODE NAME / CODE REACTION SEVERITY SOURCE 03/21/2023 DRUG INGREDI/[id number](S NOMED CT) PREDNISONE OTHER: SEE C [facility] ENCOUNTERS ADMIT/DISCHARGE ACCOUNT NUMBER ADMITTING ENCOUNTER CLASS LOC ATION SOURCE 05/24/2025/ 5 [id number] [facility] 05/14/2025 [id number] [facility]WOUS [facility] 05/14/2025 [id number] [facility]WODM [facility] 05/13/2025/ 5 [id number] [facility] 05/13/2025/ 5 [id number] [facility] [id number] [facility] 03/25/2025/ 5 [id number] [facility] 07/13/2024 [id number] [facility] PAYERS ENCOUNTER GUARANTOR PAYER SUBSCRIBER SOURCE 05/24/2025 Primary Insurance[place] MEDICAIDPolicy Number: [id number] Date:1870-64-67Brob Name:Leslee RAMOSERDOB: [id number] [place] [address] 05/14/2025 Primary Insurance:[employer] MEDICAIDPolicy Number: [id number] Date:4554-53-50Czir Name:Leslee Maguire TANNERDOB: [id number] [facility] [address] [facility] 05/14/2025 Primary Insurance:[employer] MEDICAIDPolicy Number: [id number] Date:6615-12-23Qbgi Name:Leslee Maguire TANNERDOB: [id number] [facility] [address], [place] [address] [facility] 05/13/2025 Primary Insurance:[place] MEDICAIDPolicy Number: [id number] Date:6753-56-08Guzd Name:Leslee RAMOSERDOB: [id number] [facility] [address] [address] [facility] 05/13/2025 Primary Insurance:[place] MEDICAIDPolicy Number: [id number] Date:6667-46-12Rhyj Name:Leslee RAMOSERDOB: [id number] [address], [place] [address] [facility] 03/25/2025 Primary [facility] MEDICAIDPolicy Number: [id number] Date:7044-11-94Xxke Name:Leslee Maguire RICHARDERDOB: [id number] [address], [place] [address] [facility] 03/25/2025 Primary Insurance:[place] MEDICAIDPolicy Number: [id number] Date:9642-15-96Elqa Name:Leslee Maguire RICHARDERDOB: [id number] [address], [place] [address] [facility] 07/13/2024 Primary [facility] MEDICAIDPolicy Number: [id number] Date:9665-71-13Ucaw Name:Leslee Maguire ROBINSONDOB: [id number] [address], [place] [address] [facility]
[2025-05-27 11:08] LABS: AST(SGOT) 18 U/L (<=31); Alanine Aminotransfer ALT/SGPT 15 U/L (<=34); Albumin, Serum 4.0 g/dL (3.4-4.8); Alkaline Phosphatase 81 U/L (35-104); Bilirubin, Direct 0.18 mg/dL (0.00-0.30); Cholesterol 135 mg/dL (<=200); Globulin 2.8 g/dL (2.2-4.2); Low Density Lipoprotein Calc. 79 mg/dL; Triglycerides 76 mg/dL; Very Low Density Lipoprotein 15 mg/dL (5-40); cholesterol:hdl ratio screen 3.31
== END | disposition home or self-care (01) ==
LOC: LAB 09:41
PROVIDERS: PCP Family Medicine; Referring Provider Nurse Practitioner Gerontology; Visit Provider Nurse Practitioner Gerontology
DX: E78.00 Pure hypercholesterolemia, unspecified (principal)
CPT/HCPCS: 36415; 80061; 80076